=== PATIENT | male | born 1960 | race Caucasian/White ===

== ENCOUNTER 2021-07-13 08:26 | Outpatient (REF) | payer OTHER, SELFPAY ==
--- NOTE | ~2021-07-13 | US_ITS ---
EXAMINATION: US ABDOMEN COMPLETE CLINICAL INFORMATION: HCC screening, positive liver fibrosis (F2-F3), chronic HBV. COMPARISON: Ultrasound abdomen complete 09/18/2019. US abdomen complete with liver elastography 03/08/2019. TECHNIQUE: Real-time imaging of the abdominal viscera. Technically limited study secondary to bowel gas and body habitus. FINDINGS: PANCREAS: Not well visualized due to bowel gas ABDOMINAL AORTA: Not well visualized due to bowel gas INFERIOR VENA CAVA: Not well visualized due to bowel gas LIVER: The liver is slightly enlarged, right lobe measuring 18 cm. The liver contour is normal. Liver echotexture is increased. No focal hepatic lesion. There is no intrahepatic biliary duct dilatation seen. GALLBLADDER: The gallbladder is upper normal in size. This is similar to previous exam. The gallbladder is without evidence of stones, sludge, polyps, wall thickening or pericholecystic fluid. COMMON BILE DUCT: Not seen RIGHT KIDNEY: Normal. No hydronephrosis. No renal calculi or focal parenchymal lesions. The kidney measures 12.6 cm in maximum dimension. LEFT KIDNEY: Normal. No hydronephrosis. No renal calculi or focal parenchymal lesions. The kidney measures 12.5 cm in maximum dimension. SPLEEN: 11.6 The spleen measures 11.6 cm in maximum dimension. FREE FLUID: None. US/US abdomen complete IMPRESSION: Very limited exam. Enlarged echogenic liver probably representing fatty infiltration. No ultrasound evidence of cirrhosis. Upper normal-size gallbladder similar to previous exam. No gallstones. Limited visualization of the pancreas, aorta, IVC and common bile duct.
== END 2021-07-13 08:27 | disposition home or self-care (01) ==
LOC: HO.US 08:26
PROVIDERS: Visit Provider Nurse Practitioner
DX: K74.00 Hepatic fibrosis, unspecified (principal)
CPT/HCPCS: 76700

== ENCOUNTER 2023-03-17 15:04 | Outpatient (REF) | payer OTHER, SELFPAY ==
[2023-03-17 16:41] LABS: Alanine Aminotransferase 34 U/L (0-40); Albumin Level 4.5 g/dL (3.5-5.0); Alkaline Phosphatase 101 U/L (39-117); Aspartate Amino Transferase 28 U/L (5-37); Bilirubin Direct < 0.2 mg/dL (0.0-0.5); Bilirubin Total 0.2 mg/dL (0.0-1.0); Total Protein 8.7 g/dL (6.5-8.0)
[2023-03-18 07:22] LABS: HIV AB/AG Nonreactive (Nonreactive); HIV Num 1 0.17 S/CO (0.00-0.99); ~HepC Num1 0.66 S/CO (0.00-0.79); ~Hepatitis C Antibody Nonreactive (Nonreactive)
== END 2023-03-17 15:05 | disposition home or self-care (01) ==
LOC: HO.HHCL 15:04
PROVIDERS: Visit Provider Emergency Medicine
DX: F11.20 Opioid dependence, uncomplicated (principal)
CPT/HCPCS: 36415; 80076; 86803; 87389

== ENCOUNTER 2023-07-28 13:12 | Outpatient (REF) | payer OTHER, SELFPAY ==
[2023-07-28 16:19] LABS: Hematocrit 43.1 % (42.0-52.0); Hemoglobin 14.8 g/dl (14.0-18.0); Mean Corpuscular HGB Conc 34.3 g/dl (31.0-36.0); Mean Corpuscular Volume 90.4 fL (80.0-98.0); Mean Platelet Volume 12.1 fL (9.4-12.4); Platelet Count 266 X10*3/uL (160-400); Red Blood Count 4.77 X10*6/uL (4.60-5.80); Red Cell Distribution Width 13.2 % (11.0-16.0); White Blood Count 13.5 X10*3/uL (4.8-10.8)
[2023-07-28 16:40] LABS: Estimated Average Glucose 160 mg/dL; Hemoglobin A1c % 7.2 % (<6.0)
[2023-07-28 16:45] LABS: Alanine Aminotransferase 22 U/L (0-40); Albumin Level 4.8 g/dL (3.5-5.0); Alkaline Phosphatase 97 U/L (39-117); Anion Gap 17 (12-20); Aspartate Amino Transferase 22 U/L (5-37); Bilirubin Total 0.3 mg/dL (0.0-1.0); Blood Urea Nitrogen 17 mg/dL (9-16); Calcium 10.5 mg/dL (8.4-10.2); Carbon Dioxide 28 mmol/L (22-29); Chloride 99 mmol/L (96-108); Cholesterol 207 mg/dL (<200); Estimated Glomerular Filt Rate > 60; Glucose Random 140 mg/dL (60-115); HDL Cholesterol 62 mg/dL (>40); LDL Cholesterol Calculated 108 mg/dL (<100); Potassium 3.7 mmol/L (3.3-5.1); Sodium 140 mmol/L (135-145); Total Protein 9.1 g/dL (6.5-8.0); Triglycerides 185 mg/dL (<150)
[2023-07-28 16:52] LABS: TSH reflex Free T4 1.17 uIU/mL (0.32-4.0); Vitamin D 25-OH Total 19.8 ng/mL (>30)
[2023-07-28 17:10] LABS: Folate 14.1 ng/mL (> or = 4.0); Prostate Specific Antigen 0.32 ng/mL (<0.05-4.0); Vitamin B12 512 pg/mL (200-900)
[2023-07-28 17:33] LABS: CT PCR NOT DETECTED (Not Detect.); NG PCR NOT DETECTED (Not Detect.)
[2023-07-29 08:28] LABS: HBS Num1 96.62 mIU/mL (0-7.99); HBc Num1 6.03 S/CO (0.00-0.79); HBsAGNum1 0.28 S/CO (0.00-0.99); HIV AB/AG Nonreactive (Nonreactive); HIV Num 1 0.53 S/CO (0.00-0.99); Hepatitis B Surface Antigen Negative (Negative); ~HepC Num1 1.13 S/CO (0.00-0.79); ~Hepatitis B Surface Antibody REACTIVE (Nonreactive); ~Hepatitis C Antibody Reactive (Nonreactive)
[2023-07-29 08:33] LABS: Syphilis Screen Reactive (Nonreactive)
[2023-07-29 09:50] LABS: HBc Num3 6.19 S/CO; Hepatitis B Core Antibody Reactive (Nonreactive)
[2023-08-01 12:48] LABS: HCV Log PCR <1.18 NOT DETECTED Log IU/mL (NOT DETECTED); HepC Viral Load <15 NOT DETECTED IU/mL (NOT DETECTED)
[2023-08-05 14:43] LABS: RPR Quantitative Reactive 1:1 (Nonreactive); T.Pallidum Particle Agg Test Reactive (Nonreactive)
== END 2023-07-28 13:13 | disposition home or self-care (01) ==
LOC: HO.HHCL 13:12
PROVIDERS: Visit Provider Student in an Organized Health Care Education/Training Program
DX: Z00.00 Encounter for general adult medical examination without abnormal findings (principal); Z12.5 Encounter for screening for malignant neoplasm of prostate
CPT/HCPCS: 0353U; 36415; 80053; 80061; 82306; 82607; 82746; 83036; 84153; 84443; 85027; 86592; 86704; 86706; 86780; 86803; 87340; 87389; 87522

== ENCOUNTER 2023-08-02 15:53 | Outpatient (REF) | payer OTHER, SELFPAY ==
--- NOTE | ~2023-08-02 | XR_ITS ---
EXAMINATION: XR KNEE, RIGHT CLINICAL INFORMATION: Patient states right knee pain, denies injury. COMPARISON: None available. TECHNIQUE: AP and lateral of the right knee. FINDINGS: Trace joint effusion. Tiny posterior patellar osteophytes. Mild narrowing of the lateral compartment. XR/XR knee RT 2V IMPRESSION: Mild degenerative changes.
[2023-08-02 19:27] LABS: Creatinine Urine 70.53 mg/dL; Microalbum/Creatinine Ratio Ur 15.5 ug/mg cr (<30)
== END 2023-08-02 15:54 | disposition home or self-care (01) ==
LOC: HO.HHCX 15:53
PROVIDERS: Visit Provider Student in an Organized Health Care Education/Training Program
DX: M25.561 Pain in right knee (principal); E83.52 Hypercalcemia
CPT/HCPCS: 73560; 82043; 82570

== ENCOUNTER 2023-08-22 06:34 | Day surgery (SDC) | payer OTHER, SELFPAY ==
[2023-08-18 09:39] VITALS: BMI 31.5
--- NOTE | 2023-08-19 10:14 | HO.ANESPROP2 ---
Documented by User: Crystal Romo NP 08/19/23 10:15 HPI - Anesthesia Eval Consult details Narrative: 63yo M for Right Cataract Extraction IOL Insertion No previous cataract Suboxone daily Anesthesia Pre-Procedure Meds Is the patient on any of the following meds?: GLP1/DPP4 and SGLT2 Inhib PMFSH Past Medical History Medical History Hypercalcemia Hepatitis B HLD (hyperlipidemia) Knee pain Hx of syphilis Hepatitis C Bipolar 1 disorder PTSD (post-traumatic stress disorder) Substance abuse in remission Liver fibrosis Aortic valve stenosis Obesity HTN (hypertension) Diabetes Surgical History Surgical History Hx of appendectomy Social History Social History Patient Tobacco Use Status: Former Tobacco user Use of substances other than those prescribed or required for medical reasons: No Are you DNR?: No Advance Directives: No Advance Directives Information Provided: Yes Advance Directives on File: No Recently lost weight without trying: No Eating poorly because of decreased appetite: No Nutrition Risks: No Nutritional Risk Meds Allergies Allergy/AdvReac Type Severity Reaction Status Date / Time No Known Allergies Allergy Verified 08/22/23 07:33 Home Medications ?Medication ?Instructions ?Recorded ?Confirmed ?Last Taken ?Type acetaminophen 325 mg tablet 325 mg PO Q8-10H PRN Pain 08/17/23 08/18/23 08/22/23 05:00 History aspirin 81 mg tablet,delayed 81 mg PO DAILY 08/17/23 08/17/23 08/22/23 05:00 History release atorvastatin 20 mg tablet 20 mg PO DAILY 08/17/23 08/17/23 08/22/23 05:00 History buprenorphine 8 mg-naloxone 2 mg 1 film sublingual BID 08/17/23 08/18/23 08/22/23 05:00 History sublingual film chlorhexidine gluconate 0.12 % 15 ml PO BEDTIME 08/17/23 08/18/23 Unknown History mouthwash cholecalciferol (vitamin D3) 50 50 mcg PO DAILY 08/17/23 08/17/23 08/22/23 05:00 History mcg (2,000 unit) capsule (Vitamin D3) clonazepam 0.5 mg tablet 0.5 mg PO DAILY PRN Anxiety 08/17/23 08/18/23 Unknown History docusate sodium 100 mg capsule 100 mg PO BID PRN Constipation 08/17/23 08/17/23 Unknown History empagliflozin 25 mg tablet 25 mg PO DAILY 08/17/23 08/17/23 08/19/23 History lisinopril 20 1 tab PO DAILY 08/17/23 08/17/23 08/22/23 05:00 History mg-hydrochlorothiazide 25 mg tablet metformin 500 mg tablet,extended 500 mg PO QPM 08/17/23 08/18/23 Unknown History release 24 hr mirtazapine 15 mg tablet 15 mg PO BEDTIME 08/17/23 08/17/23 Unknown History naloxone 4 mg/actuation nasal spray 4 mg intranasal Q2M PRN Opioid 08/17/23 08/17/23 Unknown History Overdose omega-3 300 mg-dha 120 mg-epa 180 1 cap PO BID 08/17/23 08/18/23 08/22/23 05:00 History mg-fish oil 1,000 mg capsule quetiapine 200 mg tablet 200 mg PO BEDTIME 08/17/23 08/17/23 Unknown History sitagliptin phosphate 50 mg tablet 50 mg PO DAILY 08/17/23 08/17/23 08/19/23 History (Januvia) lamotrigine 25 mg tablet 50 mg PO BEDTIME 08/18/23 08/18/23 Unknown History Exam Height,Weight and Vital Signs: Height 5 ft 6 in Weight 88.451 kg Assessment and Plan Assessment Anesthesia Assessment: Chart Reviewed Documented by User: Madhuri Erazo MD 08/22/23 07:45 PMFSH Past Medical History Medical History Hypercalcemia Hepatitis B HLD (hyperlipidemia) Knee pain Hx of syphilis Hepatitis C Bipolar 1 disorder PTSD (post-traumatic stress disorder) Substance abuse in remission Liver fibrosis Aortic valve stenosis Obesity HTN (hypertension) Diabetes Surgical History Surgical History Hx of appendectomy History of Problems with Anesthesia: No Social History Social History Patient Tobacco Use Status: Former Tobacco user Use of substances other than those prescribed or required for medical reasons: No Are you DNR?: No Advance Directives: No Advance Directives Information Provided: Yes Advance Directives on File: No Recently lost weight without trying: No Eating poorly because of decreased appetite: No Nutrition Risks: No Nutritional Risk Meds Allergies Allergy/AdvReac Type Severity Reaction Status Date / Time No Known Allergies Allergy Verified 08/22/23 07:33 Home Medications ?Medication ?Instructions ?Recorded ?Confirmed ?Last Taken ?Type acetaminophen 325 mg tablet 325 mg PO Q8-10H PRN Pain 08/17/23 08/18/23 08/22/23 05:00 History aspirin 81 mg tablet,delayed 81 mg PO DAILY 08/17/23 08/17/23 08/22/23 05:00 History release atorvastatin 20 mg tablet 20 mg PO DAILY 08/17/23 08/17/23 08/22/23 05:00 History buprenorphine 8 mg-naloxone 2 mg 1 film sublingual BID 08/17/23 08/18/23 08/22/23 05:00 History sublingual film chlorhexidine gluconate 0.12 % 15 ml PO BEDTIME 08/17/23 08/18/23 Unknown History mouthwash cholecalciferol (vitamin D3) 50 50 mcg PO DAILY 08/17/23 08/17/23 08/22/23 05:00 History mcg (2,000 unit) capsule (Vitamin D3) clonazepam 0.5 mg tablet 0.5 mg PO DAILY PRN Anxiety 08/17/23 08/18/23 Unknown History docusate sodium 100 mg capsule 100 mg PO BID PRN Constipation 08/17/23 08/17/23 Unknown History empagliflozin 25 mg tablet 25 mg PO DAILY 08/17/23 08/17/23 08/19/23 History lisinopril 20 1 tab PO DAILY 08/17/23 08/17/23 08/22/23 05:00 History mg-hydrochlorothiazide 25 mg tablet metformin 500 mg tablet,extended 500 mg PO QPM 08/17/23 08/18/23 Unknown History release 24 hr mirtazapine 15 mg tablet 15 mg PO BEDTIME 08/17/23 08/17/23 Unknown History naloxone 4 mg/actuation nasal spray 4 mg intranasal Q2M PRN Opioid 08/17/23 08/17/23 Unknown History Overdose omega-3 300 mg-dha 120 mg-epa 180 1 cap PO BID 08/17/23 08/18/23 08/22/23 05:00 History mg-fish oil 1,000 mg capsule quetiapine 200 mg tablet 200 mg PO BEDTIME 08/17/23 08/17/23 Unknown History sitagliptin phosphate 50 mg tablet 50 mg PO DAILY 08/17/23 08/17/23 08/19/23 History (Januvia) lamotrigine 25 mg tablet 50 mg PO BEDTIME 08/18/23 08/18/23 Unknown History Exam Airway Mallampati Class: III (globally poor dentition) TM Dist: >3cm Neck ROM: Full Loose/Missing/Broken Teeth: Yes, Upper and Lower Heart: RRR Lungs: CTA Assessment and Plan Assessment Anesthesia Assessment: Anesthesia Plan Discussed Final Anesthetic Review History of Problems with Anesthesia: No NPO: Yes ASA Class: III Final Preanesthetic Review: Meds/Allgs Chart Reviewed, Consent Obtained/Reviewed and Anes Risks/Benef Reviewed Patient Risk: Intermediate Procedure Risk: Low Anesthetic Plan Anesthetic Plan: MAC: Disposition: Standard PACU
[2023-08-22 07:12] VITALS: BP 155/71; PULSE 76; RESP 15; TEMP 36.7; O2SAT 95
[2023-08-22 07:34] LABS: Glucose, Whole Blood 148 mg/dL (60-115)
--- NOTE | 2023-08-22 08:15 | P.PCNO_ITS ---
Ophthalmology Procedure Procedure Date of Service: 08/22/23 Ophthalmology Viscoelastic: Healon Duet Dual Pack Pro Ophthalmology Lenses: IOL Acrysof MP - [id number] (23) Procedure Notes: PREOPERATIVE DIAGNOSIS: Decreased visual acuity right eye secondary to cataract POSTOPERATIVE DIAGNOSIS: Same PROCEDURE: Right cataract extraction with intraocular lens insertion SURGEON: Ar Kulkarni M.D. ANESTHESIA: Topical/MAC ESTIMATED BLOOD LOSS: None COMPLICATIONS: None After obtaining informed consent, the patient was brought to the operating room suite and placed in the supine position. After adequate sedation per anesthesia, topical drops of Tetracaine were given to the right eye. The eye was then prepped and draped in the usual sterile fashion. The operating room microscope was then positioned over the operative eye and a lid speculum placed. A paracentesis was created. Viscoelastic was then instilled into the anterior chamber. A three plane incision was then created temporally, utilizing a 2.85 mm keratome. Capsulotomy forceps were then utilized to create a circular tear capsulotomy. Hydrodissection and hydrodelineation were carried out until adequate mobilization of the nucleus occurred. Phacoemulsification was then utilized to remove the dense central nucl eus followed by removal of the cortical material utilizing the automated aspiration irrigation unit. Viscoelastic was instilled into the posterior capsular bag followed by placement of a posterior chamber intraocular lens without difficulty. The residual Viscoelastic was then removed utilizing the automated IA machine. The wound was checked and found to be watertight. The patient tolerated the procedure well and the lid speculum was removed. Intracameral injection of Vigamox 0.1 mL followed by a subtenon injection of Kenalog-40 0.2 mL were administered. The patient will be seen in the a.m.
--- NOTE | 2023-08-22 08:15 | MHC.SHP ---
Pre-Procedural Eval Section A - 24 Hr Update-Section A only Date of Service: 08/22/23 The patient is an INPATIENT: No Changes since office visit: No Cold of Flu in the past 2 weeks, No New Medical Problems, No Changes in Medication and No Patient answered all questions The patient has been examined within 24 hours of the surgical procedure. The History & Physical has been completed within 30 days and I have reviewed it.: Yes Section B - Complete if H&P > 30 days Chief Complaint: Age-related nuclear cataract, right eye Allergies: Allergies Allergy/AdvReac Type Severity Reaction Status Date / Time No Known Allergies Allergy Verified 08/22/23 07:33 Plan Diagnosis/Plan: Unchanged I have reviewed the history and physical and performed a pertinent physical examination on my patient. No changes have occurred unless specified. Time Spent With Patient Time: Total time managing care of this patient today ____ minutes.
[2023-08-22] MEDS: Lactated Ringers 500 ML 50 ML IV (08:17)
[2023-08-22 08:54] VITALS: BP 126/73; PULSE 71; RESP 18; TEMP 36.8; O2SAT 96
== END 2023-08-22 08:57 | disposition home or self-care (01) ==
PROVIDERS: PCP Student in an Organized Health Care Education/Training Program; Visit Provider Ophthalmology
PROC: (CPT 66985; principal; 2023-08-22 08:00)
DX: H25.11 Age-related nuclear cataract, right eye (principal); H52.4 Presbyopia; H53.002 Unspecified amblyopia, left eye; H18.413 Arcus senilis, bilateral; H17.89 Other corneal scars and opacities; I10 Essential (primary) hypertension; E11.9 Type 2 diabetes mellitus without complications; E78.00 Pure hypercholesterolemia, unspecified; F31.9 Bipolar disorder, unspecified; Z79.84 Long term (current) use of oral hypoglycemic drugs; Z79.899 Other long term (current) drug therapy
CPT/HCPCS: 66984; 82947; J2250; J3010; J3301; V2630

== ENCOUNTER 2023-10-25 14:00 | Outpatient (RCR) | payer OTHER, SELFPAY | END 2023-12-07 08:43 | disposition home or self-care (01) | LOC: HO.PT 14:00 | PROVIDERS: PCP Student in an Organized Health Care Education/Training Program; Visit Provider Student in an Organized Health Care Education/Training Program | DX: M25.561 Pain in right knee (principal) | CPT/HCPCS: 97110; 97162; 97530 ==

== ENCOUNTER 2024-01-02 08:30 | Outpatient (REF) | payer OTHER, SELFPAY ==
[2024-01-02 11:10] LABS: MANUAL DIFF FLAG NO
[2024-01-02 11:15] LABS: Basophils Percent Auto 0.4 % (0-2); Eosinophils Absolute Auto 0.2 X10*3/uL (0.0-0.4); Eosinophils Percent Auto 1.6 % (0-4); Hematocrit 41.3 % (42.0-52.0); Hemoglobin 14.2 g/dl (14.0-18.0); Imm Gran Abs Auto 0.03 X10*3/uL (0.00-0.03); Imm Gran Pct Auto 0.3 % (0.0-0.4); Lymphocytes Absolute Auto 3.2 X10*3/uL (1.2-4.9); Lymphocytes Percent Auto 32.9 % (20-40); Mean Corpuscular HGB Conc 34.4 g/dl (31.0-36.0); Mean Corpuscular Volume 90.2 fL (80.0-98.0); Mean Platelet Volume 11.8 fL (9.4-12.4); Monocytes Absolute Auto 0.5 X10*3/uL (0.1-1.2); Monocytes Percent Auto 4.7 % (2-11); Neutrophils Absolute Auto 5.8 x10*3/uL (2.0-8.3); Neutrophils Percent Auto 60.1 % (45-73); Platelet Count 269 X10*3/uL (160-400); Red Blood Count 4.58 X10*6/uL (4.60-5.80); Red Cell Distribution Width 13.3 % (11.0-16.0); White Blood Count 9.6 X10*3/uL (4.8-10.8)
[2024-01-02 11:24] LABS: Estimated Average Glucose 148 mg/dL; Hemoglobin A1C 191.8667 umol/L; Hemoglobin A1c % 6.8 % (<6.0); Total Hemoglobin (HGBA1C) 3758.8465 umol/L
[2024-01-02 11:38] LABS: Creatinine Urine 80.42 mg/dL; Microalbum/Creatinine Ratio Ur 14.9 ug/mg cr (<30)
[2024-01-02 12:02] LABS: Folate 13.9 ng/mL (> or = 4.0); Vitamin B12 483 pg/mL (200-900)
[2024-01-02 12:03] LABS: Alanine Aminotransferase 24 U/L (0-40); Albumin Level 4.3 g/dL (3.5-5.0); Alkaline Phosphatase 90 U/L (39-117); Anion Gap 13 (12-20); Aspartate Amino Transferase 24 U/L (5-37); Bilirubin Total 0.3 mg/dL (0.0-1.0); Blood Urea Nitrogen 14 mg/dL (9-16); Calcium 9.4 mg/dL (8.4-10.2); Carbon Dioxide 26 mmol/L (22-29); Chloride 101 mmol/L (96-108); Cholesterol 158 mg/dL (<200); Estimated Glomerular Filt Rate > 60; Glucose Random 126 mg/dL (60-115); HDL Cholesterol 52 mg/dL (>40); LDL Cholesterol Calculated 69 mg/dL (<100); Potassium 3.8 mmol/L (3.3-5.1); Sodium 136 mmol/L (135-145); Total Protein 8.4 g/dL (6.5-8.0); Triglycerides 189 mg/dL (<150); Vitamin D 25-OH Total 26.9 ng/mL (>30)
== END 2024-01-02 08:31 | disposition home or self-care (01) ==
LOC: HO.HHCL 08:30
PROVIDERS: Visit Provider Student in an Organized Health Care Education/Training Program
DX: E83.52 Hypercalcemia (principal); E11.9 Type 2 diabetes mellitus without complications; Z68.32 Body mass index [BMI] 32.0-32.9, adult; E66.09 Other obesity due to excess calories
CPT/HCPCS: 36415; 80053; 80061; 82043; 82306; 82570; 82607; 82746; 83036; 85025

== ENCOUNTER 2024-01-25 09:18 | Outpatient (REF) | payer OTHER, SELFPAY | END 2024-01-25 09:19 | disposition home or self-care (01) | LOC: HO.US 09:18 | PROVIDERS: PCP Student in an Organized Health Care Education/Training Program; Visit Provider Student in an Organized Health Care Education/Training Program | DX: K74.00 Hepatic fibrosis, unspecified (principal) | CPT/HCPCS: 76700; 76981 ==

== ENCOUNTER → 2024-01-25 09:21 | Outpatient (BNV) | payer OTHER, SELFPAY | PROVIDERS: PCP Student in an Organized Health Care Education/Training Program; Visit Provider Radiology Diagnostic Radiology | DX: K74.00 Hepatic fibrosis, unspecified (principal) | CPT/HCPCS: 76700; 76981 ==

== ENCOUNTER 2024-04-20 14:53 | Outpatient (REF) | payer OTHER, SELFPAY ==
--- NOTE | ~2024-04-20 | XR_ITS ---
EXAMINATION: XR KNEE, LEFT CLINICAL INFORMATION: pain COMPARISON: 10/04/2018 . TECHNIQUE: AP standing and lateral view left knee. of the left knee. FINDINGS: No fracture, dislocation, or suspicious bone lesion. Normal bone mineralization. Severe medial compartment joint space narrowing is noted with near qpxh-ce-dcxo appearance. There is compensatory widening of the lateral compartment, and varus angulation of the joint. Mild to moderate patellofemoral degenerative arthritis. There is mild spurring of the tibial spines. There is a large joint effusion. Soft tissues demonstrate vascular calcifications. XR/XR knee LT 2V IMPRESSION: 1. Severe medial compartment joint space loss with near xpwj-oq-jsjl appearance, compensatory widening of the lateral compartment and mild varus angulation of the joint. 2. Tujl-ed-alhhzcdn patellofemoral osteoarthrosis. 3. Prominent suprapatellar joint effusion. 4. Vascular calcifications. Electronically signed by: Braydon Nguyen MD 04/20/2024 03:50 PM JH
--- OUTSIDE RECORDS SUMMARY | 2024-04-20 17:05 | XMS_ITS | Encounter Summary ---
Author Organization [employer] Address [address] [place] [address] Care Team Providers Care Db2 Systems Programmer Name Role Phone Tuyet Aguilar MD Primary Care Pro vider Reason for Visit * Reason Onset Date Comments Results 04/20/2024 Encounter Details Date Type Department Care Team ([facility] st Contact Info) Description 04/20/2024 Telephone [facility] [address] [place] [address] Tuyet Sanchez MD [address] [place] [address] Results Social History Tobacco Use Types Packs/Day Years Used Date Smoking Tobacco: Never Smokeless Tobacco: Never Alcohol Use Standard Drinks/Week Comments Never 0 (1 standard drink = 0.6 oz pur e alcohol) hx of alcohol abuse -stopped Alcohol Answer Date Recorded Frequency of Alcohol Consumption Not on file 01/03/2024 Average Number of Drinks Not on file 024 Frequency of Binge Drinking Not on file 12/22 Score 0 01/03/2024 Depression Answer Date Recorded Patient Health Questionnaire-9 Score 0 04/13/2024 Patient Health Questionnaire-9 Score 0 04/13/2024 Last PHQ-9: Questionnaire Data Not on file 0 04/13/2024 Housing Stability Answer Date Recorded What is your housing situation today? I have anisa zuniga 12/07/[address] you li ve. Do you have problems with any of the following? None of the above 12/07/2022 Food Insecurity Answer Date Recorded Within the past 12 months, y ou worried that your food would run out before you got money to buy more: Never True 12/07/2022 Within the past 12 months,th e food you bought just didn't last and you didn't have enough money to get more: Never True Transportation Answer Date Recorded In the past 12 months, has l ack of transportation kept you from medical appts, meetings, work or from getting things needed for daily living? No 12/07/2022 Utilities Answer Date Recorded In the past 12 months, has t he electric, gas, oil or water company threatened to shut off services in your home? No 12/07/2022 Depression Answer Date Recorded Patient Health Questionnaire-2 Score 0 04/13/2024 Internet Access Answer Date Recorded Internet Access Q1 Yes 01/03/2024 Internet Access Q2 Not on file 01/03/2024 Sex and Gender Information Value Date Recorded Sex Assigned at Male 12/21/2021 10:14 AM EDT Legal Sex Male 10:14 AM EDT Gender Identity Male 12/21/2021 10:14 AM EDT Sexual Orientation Straight 12/21/2021 10 :14 AM EDT documented as of this encounter Miscellaneous Notes * Telephone Encounter - Sheeba Nair RN - 04/20/2024 4:09 PM EST Call placed to patient. Advised him that Dr. Angeles reviewed his knee x-ray and it demonstrated severe OA. Advised patient that a referral will be placed to orthopedics. Informed patient he will either receive a phone call or a letter in the mail with appointment information. Reinforced instructions at [facility] visit - elevation, ice, rest, tylenol/ ibuprofen as needed q. 8 hours, and diclofenac geltwice daily as needed. All questions answered. Patient verbalizes understanding and agreement with plan of care at this time. [place] [id number] ----- Message from Tuyet Ga MD sent at 04/20/2024 4:04 PM EST ----- Please le patient know I reviewed XRAY, he has severe OA I think the best approach is for referral to orthopedics please let patient know I will put referral in for him documented in this encounter Plan of Treatment Upcoming Encounters Date Type Department Care Team (Late st Contact Info) Description 05/18/2024 1:30 PM EDT Office Visit [facility] [address] [place], [place] [phone] Adeline Chew, OD [address] [place] [address] 06/15/2024 9:45 AM EDT Office Visit [facility] [address] [place] [address] Bj Hayes MD [address] [place] [address] documented as of this encounter Visit Diagnoses Not on filedocumented in this encounter Additional Health Concerns Assessment Noted Time PHQ-9 Depression Total Score: 0 04/13/19 25 10:40 AM EST documented as of this encounter Care Teams Db2 Systems Programmer Relationship Specialty Start Date End Date Tuyet Aguilar MD [address] [place] [address] PCP - General Internal Medicine 11/11/22 documented as of this encounter
--- OUTSIDE RECORDS SUMMARY | 2024-04-20 17:05 | XMS_ITS | Encounter Summary ---
Author Organization [employer] Address [address] [place] [address] Care Team Providers Care Television Journalist Name Role Phone Tuyet Aguilar MD Primary Care Pro vider Reason for Visit * Reason Comments Med Refill Encounter Details Date Type Department Care Team ([facility] st Contact Info) Description 01/13/[address] [facility] [address] [place] [address] Tuyet Aguilar MD [address] [place] [address] Pain Social History Tobacco Use Types Packs/Day Years Used Date Smoking Tobacco: Never Smokeless Tobacco: Never Alcohol Use Standard Drinks/Week Comments Never 0 (1 standard drink = 0.6 oz pur e alcohol) hx of alcohol abuse -stopped Alcohol Answer Date Recorded Frequency of Alcohol Consumption Not on file 01/03/2024 Average Number of Drinks Not on file Frequency of Binge Drinking Not on file 12/22 Score 0 01/03/2024 Depression Answer Date Recorded Patient Health Questionnaire-9 Score 0 06/29/2023 Patient Health Questionnaire-9 Score 0 06/29/2023 Last PHQ-9: Questionnaire Data Not on file 0 06/29/2023 Housing Stability Answer Date Recorded What is [...] Date Recorded Patient Health Questionnaire-2 Score 0 06/29/2023 Internet Access Answer Date Recorded Internet Access Q1 Yes 01/03/2024 Internet Access Q2 Not on file 01/03/2024 Sex and Gender Information Value Date Recorded Sex Assigned at Male 12/21/2021 10:14 AM EDT Legal Sex Male 10:14 AM EDT Gender Identity Male 12/21/2021 10:14 AM EDT Sexual Orientation Straight 12/21/2021 10 :14 AM EDT documented as of this encounter Plan of Treatment Upcoming Encounters Date Type Department Care Team (Late st Contact Info) Description 05/18/2024 1:30 PM EDT Office Visit [facility] [address] [place] [address] Jeevan, Adeline, OD [address] [place] [address] 06/15/2024 9:45 AM EDT Office Visit [facility] [address] [place] [address] Bj Hayes MD [address] [place] [address] documented as of this encounter Visit Diagnoses Diagnosis Pain Generalized pain documented in this encounter Additional Health Concerns Assessment Noted Time PHQ-9 Depression Total Score: 0 06/29/19 24 2:13 PM EDT documented as of this encounter Care Teams Television Journalist Relationship Specialty Start Date End Date Tuyet Aguilar MD [address] [place] [address] PCP - General Internal Medicine 11/11/22 documented as of this encounter
--- OUTSIDE RECORDS SUMMARY | 2024-04-20 17:05 | XMS_ITS | Encounter Summary ---
Author Organization [employer] Address [address] [facility] [address] [facility] [address] [place] [address] Care Team Providers Care Paper Grader Name Role Phone Tuyet Aguilar MD Primary Care Pro vider Reason for Visit * Reason Comments Med Refill Encounter Details Date Type Department Care Team ([facility] st Contact Info) Description 01/09/2023 Refill [facility] [address] [place] [address] Tuyet Aguilar MD [address] [place] [address] Pain Social History Tobacco Use Types Packs/Day Years Used Date Smoking Tobacco: Never Smokeless Tobacco: Never Alcohol Use Standard Drinks/Week Comments Never 0 (1 standard drink = 0.6 oz pur e alcohol) Depression Answer Date Recorded Patient Health Questionnaire-9 Score 0 08/11/2022 Housing Stability Answer Date Recorded What is your housing situation today? I have anisajoshua zuniga 12/07/[address] you [...] Date Recorded Patient Health Questionnaire-2 Score 0 08/11/2022 Sex and Gender Information Value Date Recorded Sex Assigned at Male 12/21/2021 10:14 AM EDT Legal Sex Male 10:14 AM EDT Gender Identity Male 12/21/2021 10:14 AM EDT Sexual Orientation Straight 12/21/2021 10 :14 AM EDT documented as of this encounter Plan of Treatment Upcoming Encounters Date Type Department Care Team (Late st Contact Info) Description 05/18/2024 1:30 PM EDT Office Visit [facility] [address] [place] [address] Adeline Chew, OD [address] [place] [address] 06/15/2024 9:45 AM EDT Office Visit [facility] [address] [place] [address] Bj Hayes MD [address] [place] [address] documented as of this encounter Visit Diagnoses Diagnosis Pain Generalized pain documented in this encounter Additional Health Concerns Assessment Noted Time PHQ-9 Depression Total Score: 0 08/12/19 23 2:31 PM EDT documented as of this encounter Care Teams Paper Grader Relationship Specialty Start Date End Date Tuyet Aguilar MD [address] [place] [address] PCP - General Internal Medicine 11/11/22 documented as of this encounter
--- OUTSIDE RECORDS SUMMARY | 2024-04-20 17:05 | XMS_ITS | Encounter Summary ---
Author Organization [employer] Address [address] [facility] [address] [place] [address] Care Team Providers Care Pure Culture Operator Name Role Phone Amanda Pearson JOVITA Primary Care Provider [phone] Ghulam Krueger Primary Care Provider Zulema Nj Primary Care Provider [phone] Tuyet Aguilar MD Primary Care Pro vider Encounter Details Date Type Department Care Team (Late Contact Info) Description 04/19/2022 Orders Only [facility] [address] [place], [place] [phone] Cherelle Gaitan LPN Social History Tobacco Use Types Packs/Day Years Used Date Smoking Tobacco: Never Assessed Sex and Gender Information Value Date Recorded Sex Assigned at Male 12/21/2021 10:14 AM EDT Legal Sex Male 10:14 AM EDT Gender Identity Male 12/21/2021 10:14 AM EDT Sexual Orientation Straight 12/21/2021 10 :14 AM EDT COVID-19 Exposure Response Date Recorded In the last 10 days, have yo u been in contact with someone who was confirmed or suspected to have Coronavirus/COVID-19? No / Unsure 04/16/2022 11:12 AM EST documented as of this encounter Plan of Treatment Upcoming Encounters Date Type Department Care Team (Late Contact Info) Description 05/18/2024 1:30 PM EDT Office Visit [facility] [address] [place], [place] [phone] Adeline Chew, OD [address] [place], [place] [phone] 06/15/2024 9:45 AM EDT Office Visit [facility] [address] [place] [address] Bj Hayes MD [address] [place] [address] documented as of this encounter Visit Diagnoses Not on filedocumented in this encounter Care Teams Pure Culture Operator Relationship Specialty Start Date End Date Amanda Pearson FNP [address] [place] [address] PCP - General Family Medicine 10/15/21 07/22/22 Ghulam Krueger AGNP [address] [place] [address] PCP - General Family Medicine 07/23/22 10/31/22 Zulema Khan ANP [address] [place] [address] PCP - General Family Medicine 11/01/22 11/10/22 Tuyet Aguilar MD [address] [place] [address] PCP - General Internal Medicine 11/11/22 documented as of this encounter
--- OUTSIDE RECORDS SUMMARY | 2024-04-20 17:05 | XMS_ITS | Encounter Summary ---
Author Organization [employer] Address [address] [facility] [address] [place] [address] Care Team Providers Care Level Vial Sealer Name Role Phone Tuyet Aguilar MD Primary Care Pro vider Reason for Visit * Reason Comments Med Refill Encounter Details Date Type Department Care Team ([facility] st Contact Info) Description 01/29/2024 Refill [facility] [address] [place] [address] Tuyet Aguilar MD [address] [place] [address] Social History Tobacco Use Types Packs/Day Years [...] Description 05/18/2024 1:30 PM EDT Office Visit [facility] [address] [place] [address] Jeevan, Adeline, OD [address] [place] [address] 06/15/2024 9:45 AM EDT Office Visit [facility] [address] [place] [address] Bj Hayes MD [address] [place] [address] documented as of this encounter Visit Diagnoses Not on filedocumented in this encounter Additional Health Concerns Assessment Noted Time PHQ-9 Depression Total Score: 0 06/29/19 24 2:13 PM EDT documented as of this encounter Care Teams Level Vial Sealer Relationship Specialty Start Date End Date Tuyet Aguilar MD [address] [place] [address] PCP - General Internal Medicine 11/11/22 documented as of this encounter
--- OUTSIDE RECORDS SUMMARY | 2024-04-20 17:05 | XMS_ITS | Encounter Summary ---
Author Organization [employer] Address 75 [facility] 7t [place] [address] Care Team Providers Care Inspector Bicycle Name Role Phone Tuyet Aguilar MD Primary Care Pro vider Reason for Visit * Reason Comments Med Refill Encounter Details Date Type Department Care Team ([facility] st Contact Info) Description 07/19/2023 Refill [facility] [address] [place] [address] Tuyet Aguilar MD 230 [place] [address] Pain Social History Tobacco Use Types Packs/Day Years Used Date Smoking Tobacco: Never Smokeless Tobacco: Never Alcohol Use Standard Drinks/Week Comments Never 0 (1 standard drink = 0.6 oz pur e alcohol) hx of alcohol abuse -stopped Depression Answer Date Recorded Patient Health Questionnaire-9 [...] Recorded Patient Health Questionnaire-2 Score 0 06/29/2023 Sex and Gender Information Value Date Recorded Sex Assigned at Male 12/21/2021 10:14 AM EDT Legal Sex Male 10:14 AM EDT Gender Identity Male 12/21/2021 10:14 AM EDT Sexual Orientation Straight 12/21/2021 10 :14 AM EDT documented as of this encounter Plan of Treatment Upcoming Encounters Date Type Department Care Team (Late st Contact Info) Description 05/18/2024 1:30 PM EDT Office Visit [facility] OPT[facility]ETRY [address] [place] [address] Jeevan, Adeline, OD 230 [place] [address] 06/15/2024 9:45 AM EDT Office Visit [facility] MED[facility] [address] [place] [address] Bj Hayes MD 230 [place] [address] documented as of this encounter Visit Diagnoses Diagnosis Pain Generalized pain documented in this encounter Additional Health Concerns Assessment Noted Time PHQ-9 Depression Total Score: 0 06/29/19 24 2:13 PM EDT documented as of this encounter Care Teams Inspector Bicycle Relationship Specialty Start Date End Date Tuyet Aguilar MD [address] [place] [address] PCP - General Internal Medicine 11/11/22 documented as of this encounter
--- OUTSIDE RECORDS SUMMARY | 2024-04-20 17:05 | XMS_ITS | Encounter Summary ---
Author Organization [employer] Address 75 [facility] 7t [place] [address] Care Team Providers Care Diesel Mechanic Farm Name Role Phone Ghulam Krueger SIMIN Primary Care Provider Unavail Zulema Woodall Primary Care Provider [phone] Tuyet Aguilar MD Primary Care Pro vider Reason for Visit * Reason Comments Med Refill Encounter Details Date Type Department Care Team (Late st Contact Info) Description 09/24/2022 Refill [facility] MED[facility]INE 230 [place], [place] [phone] Bj Hayes MD 230 [place] [address] Uncomplicated opioid dependence (CMS/HCC) Social History Tobacco Use Types Packs/Day Years Used Date Smoking Tobacco: Never Smokeless Tobacco: Never Alcohol Use Standard Drinks/Week Comments Never 0 (1 standard drink = 0.6 oz pur e alcohol) Depression Answer Date Recorded Patient Health Questionnaire-9 Score 0 08/11/2022 Depression Answer Date Recorded Patient Health Questionnaire-2 [...] Description 05/18/2024 1:30 PM EDT Office Visit [facility] OPTOMETRY [address] [place], [place] [phone] Adeline Chew, OD 230 [place], [place] [phone] 06/15/2024 9:45 AM EDT Office Visit [facility] MEDICINE [address] [place] [address] [phone] Bj Hayes MD [address] [place] [address] [phone] documented as of this encounter Visit Diagnoses Diagnosis Uncomplicated opioid dependence (CMS/HCC) documented in this encounter Additional Health Concerns Assessment Noted Time PHQ-9 Depression Total Score: 0 08/12/19 2:31 PM EDT documented as of this encounter Care Teams Diesel Mechanic Farm Relationship Specialty Start Date End Date Ghulam Krueger AGNP PCP - General Family Medicine 07/23/22 10/31/22 Zuleam Khan ANP [address] [place] [address] [phone] PCP - General Family Medicine 11/01/22 11/10/22 Tuyet Aguilar MD [address] [place] [address] [phone] PCP - General Internal Medicine 11/11/22 documented as of this encounter
--- OUTSIDE RECORDS SUMMARY | 2024-04-20 17:05 | XMS_ITS | Encounter Summary ---
Author Organization [employer] Address 75 [facility] 7t [place] [address] Care Team Providers Care Procurement Representative Name Role Phone Amanda Pearson JOVITA Primary Care Provider [phone] Ghulam Krueger Primary Care Provider Zulema Nj Primary Care Provider [phone] Tuyet Aguilar MD Primary Care Pro vider Encounter Details Date Type Department Care Team (Late st Contact Info) Description 04/02/2022 Orders Only [facility]EDS [address] [place], [place] [phone] Cherelle Gaitan LPN Social History Tobacco Use [...] Description 05/18/2024 1:30 PM EDT Office Visit [facility] OPTOMETRY [address] [place], [place] [phone] Adeline Chew, OD 230 [place], [place] [phone] 06/15/2024 9:45 AM EDT Office Visit [facility] MEDICINE 230 [place], [place] [phone] Bj Hayes MD 230 [place], [place] [phone] documented as of this encounter Visit Diagnoses Not on filedocumented in this encounter Care Teams Procurement Representative Relationship Specialty Start Date End Date Amanda Pearson FNP [address] [place] [address] PCP - General Family Medicine 10/15/21 07/22/22 Ghulam Krueger AGNP [address] [place] [address] PCP - General Family Medicine 07/23/22 10/31/22 Zulema Khan ANP [address] [place] [address] PCP - General Family Medicine 11/01/22 11/10/22 Tuyet Aguilar MD [address] [place] [address] PCP - General Internal Medicine 11/11/22 documented as of this encounter
--- OUTSIDE RECORDS SUMMARY | 2024-04-20 17:05 | XMS_ITS | Encounter Summary ---
Author Organization [employer] Address 75 [facility] 7t [place] [address] Care Team Providers Care Master Of Ceremonies Name Role Phone Tuyet Aguilar MD Primary Care Pro vider Reason for Visit * Reason Comments Med Refill Encounter Details Date Type Department Care Team ([facility] st Contact Info) Description 04/20/2024 Refill [facility] MEDICINE [address] [place], [place] [phone] Rakel Ng MD 230 [place], [place] [phone] Social History Tobacco Use Types Packs/Day Years [...] Description 05/18/2024 1:30 PM EDT Office Visit [facility] OPTOMETRY [address] [place] [address] Jeevan, Adeline, OD 230 [place] [address] 06/15/2024 9:45 AM EDT Office Visit [facility] MEDICINE [address] [place] [address] Bj Hayes MD [address] [place] [address] documented as of this encounter Visit Diagnoses Not on filedocumented in this encounter Additional Health Concerns Assessment Noted Time PHQ-9 Depression Total Score: 0 04/13/19 25 10:40 AM EST documented as of this encounter Care Teams Master Of Ceremonies Relationship Specialty Start Date End Date Tuyet Aguilar MD 230 [place] [address] PCP - General Internal Medicine 11/11/22 documented as of this encounter
--- OUTSIDE RECORDS SUMMARY | 2024-04-20 17:05 | XMS_ITS | Encounter Summary ---
Author Organization [employer] Address 75 [facility] 7t [place] [address] Care Team Providers Care Software Development Analyst Name Role Phone Tuyet Aguilar MD Primary Care Pro vider Reason for Visit * Reason Comments OBAT Encounter Details Date Type Department Care Team ([facility] st Contact Info) Description 04/13/2024 9:30 AM EST Office Visit [facility] MEDIC[facility] [address] [place], [place] [phone] Bj Hayes MD [address] [place], [place] [phone] Opioid dependence in remission (CMS/HCC) (Primary Dx); Uncomplicated opioid dependence (CMS/HCC) Social History Tobacco [...] AM EDT documented as of this encounter Progress Notes * Bj Hayes MD - 04/13/2024 9:30 AM EST Patient ID: Petey Shipman is a 64 y.o. male who is here for Opioid Dependence RV. Current dose of Suboxone is 16/4 mg daily on a 8 weeks schedule. Induction date: 07/07/18. Patient actively enrolled with services at [facility] with Kale Barnes and Dr. Harrell. LFTs last done 08/02/23. VSs 03/16/24. 02/17/24 Utox pos BUP only Petey seen today for follow-up for opioid use disorder. Reports doing very well; reading his Bible studies and in care with therapist and psychiatrist. Feels well on current dose of Suboxone with no cravings, withdrawal symptoms, or adverse effects. No substance use or alcohol. Today 04/13/24 F/U for opioid use disorder Utox BUP VSs 03/16/24 Doing ok. Has been having more pain from arthritis, knees to hips/ Suboxone helps though sometimes needs to take a little extra. Wondering if I could increase his dose. Constipation controlled with 2 colace daily. Reads the bible and bible studies by zoom, alone or at his girlfriend's. Physical Exam Constitutional: Appearance: Normal appearance. Musculoskeletal: Comments: Using a cane. Neurological: Mental Status: He is alert and oriented to person, place, and time. Psychiatric: Mood and Affect: Mood normal. Behavior: Behavior normal. Thought Content: Thought content normal. Assessment/Plan Opioid dependence in remission ([facility]) VSs 03/16/24 Doing ok. Has been having more pain from arthritis, knees to hips. Suboxone BID helps (a.m. and evening) though sometimes needs to take a little extra. Wondering if Icould increase his dose. Constipation controlled with 2 colace daily. Reads the bible and bible studies by zoom, alone or at his girlfriend's. As above. Continues to do well. Reviewed suboxone dose. Will increase to 8-4-8. Hep A IgG @ May visit (can't find result in labs). Hep B immune. F/U 8 weeks Diagnoses and all orders for this visit: Opioid dependence in remission ([facility]) This information has been disclosed to you from records protected by federal confidentiality rules(42 CFR Part 2). The federal rules prohibit you from making any further disclosure of information in this record that identifies a patient as having or having had a substance use disorder either directly, by reference to publicly available information, or through verification of such identificationby another person unless further disclosure is expressly permitted by the written consent of the individual whose information is being disclosed or as otherwise permitted by (see 2.3.1). The federal rules restrict any use of the information to investigate or prosecute with regard to a crime any patient with a substance use disorder, except as provided at 2.12??(5) and 2.65. documented in this encounter Plan of Treatment Upcoming Encounters Date Type Department Care Team (Late st Contact Info) Description 05/18/2024 1:30 PM EDT Office Visit [facility] OPTOMETRY [address] [place] [address] Jeevan, Adeline, OD 230 [place] [address] 06/15/2024 9:45 AM EDT Office Visit [facility] MEDIC[facility] [address] [place] [address] Bj Hayes MD [address] [place] [address] documented as of this encounter Procedures Procedure Name Priority Date/Time Associated Diagnosis Comments POCT PRECIOUS-14 URINE DRUG SCREEN Routine 04/13/2024 10:25 AM EST Opioid dependence in remission (CMS/HCC) documented in this encounter Results * POCT PRECIOUS-14 Urine Drug Screen (04/13/2024 10:25 AM EST) THC Negative Cocaine Screen, Urine Negative Opiate Screen, Urine Negative Methamphetamine Screen Urine Negative Amphetamine Screen, Urine Negative Benzodiazepines Screen, Urine Negative Barbiturate Screen, Urine Negative Methadone Screen, Urine Negative Buprenophine Screen, Urine Positive TCA, Urine Negative MDMA Urine Negative ng/mL Oxycodone Screen, Urine Negative Phencyclidine (PCP), Urine Negative Propoxyphene, Urine Negative Fentanyl, Urine Negative Urine Urine specimen obtained by clean catch procedure / Unknown 04/13/2024 10:25 AM EST us Bj Hayes MD POINT OF CARE TEST ENTER/EDIT ORDERABLES Final Result documented in this encounter Visit Diagnoses Diagnosis Opioid dependence in remission (CMS/HCC)- Primary Opioid type dependence, in remission Uncomplicated opioid dependence (CMS/HCC) documented in this encounter Additional Health Concerns Assessment Noted Time PHQ-9 Depression Total Score: 0 04/13/19 25 10:40 AM EST documented as of this encounter Care Teams Software Development Analyst Relationship Specialty Start Date End Date Tuyet Aguilar MD [address] [place] [address] PCP - General Internal Medicine 11/11/22 documented as of this encounter
--- OUTSIDE RECORDS SUMMARY | 2024-04-20 17:05 | XMS_ITS | Encounter Summary ---
Author Organization [employer] Address 75 [facility] 7t [place] [address] Care Team Providers Care Computer Builder Name Role Phone Tuyet Aguilar MD Primary Care Pro vider Reason for Visit * Reason Comments Med Refill Encounter Details Date Type Department Care Team ([facility] st Contact Info) Description 07/08/[address] [facility] MEDICINE [address] [place] [address] Tuyet Aguilar MD 230 [place] [address] Pain Social History Tobacco Use Types Packs/Day [...] 05/18/2024 1:30 PM EDT Office Visit [facility] OPTOMETRY [address] [place] [address] Jeevan, Adeline, OD 230 [place] [address] 06/15/2024 9:45 AM EDT Office Visit [facility] MEDICINE [address] [place] [address] Bj Hayes MD 230 [place] [address] documented as of this encounter Visit Diagnoses Diagnosis Pain Generalized pain documented in this encounter Additional Health Concerns Assessment Noted Time PHQ-9 Depression Total Score: 0 06/29/19 24 2:13 PM EDT documented as of this encounter Care Teams Computer Builder Relationship Specialty Start Date End Date Tuyet Aguilar MD [address] [place] [address] PCP - General Internal Medicine 11/11/22 documented as of this encounter
--- OUTSIDE RECORDS SUMMARY | 2024-04-20 17:05 | XMS_ITS | Encounter Summary ---
Author Organization [employer] Address 75 [facility] 7t [place] [address] Care Team Providers Care Motor Vehicle Assembler Name Role Phone Tuyet Aguilar MD Primary Care Pro vider Encounter Details Date Type Department Care Team (Latest Contact Info) Description 04/13/2024 Travel Social History Tobacco Use Types Packs/Day Years [...] Description 05/18/2024 1:30 PM EDT Office Visit [facility] OPTOMETRY [address] [place] [address] Jeevan, Adeline, OD 230 [place] [address] 06/15/2024 9:45 AM EDT Office Visit [facility] MEDICINE 230 [place] [address] Bj Hayes MD 230 [place] [address] documented as of this encounter Visit Diagnoses Not on filedocumented in this encounter Additional Health Concerns Assessment Noted Time PHQ-9 Depression Total Score: 0 04/13/19 25 10:40 AM EST documented as of this encounter Care Teams Motor Vehicle Assembler Relationship Specialty Start Date End Date Tuyet Aguilar MD 230 [place] [address] PCP - General Internal Medicine 11/11/22 documented as of this encounter
--- OUTSIDE RECORDS SUMMARY | 2024-04-20 17:05 | XMS_ITS | Encounter Summary ---
Author Organization [employer] Address 75 [facility] 7t [place] [address] Care Team Providers Care Tax Accountant Name Role Phone Tuyet Aguilar MD Primary Care Pro vider Reason for Visit * Reason Comments Med Refill Encounter Details Date Type Department Care Team ([facility] st Contact Info) Description 09/16/2023 Refill [facility] MED[facility] [address] [place] [address] Tuyet Aguilar MD 230 [place] [address] Pain Social History Tobacco Use Types Packs/Day [...] Description 05/18/2024 1:30 PM EDT Office Visit [facility] OPTOMETRY [address] [place] [address] Jeevan, Adeline, OD 230 [place] [address] 06/15/2024 9:45 AM EDT Office Visit [facility] MEDICINE [address] [place] [address] Bj Hayes MD 230 [place] [address] documented as of this encounter Visit Diagnoses Diagnosis Pain Generalized pain documented in this encounter Additional Health Concerns Assessment Noted Time PHQ-9 Depression Total Score: 0 06/29/19 24 2:13 PM EDT documented as of this encounter Care Teams Tax Accountant Relationship Specialty Start Date End Date Tuyet Aguilar MD [address] [place] [address] PCP - General Internal Medicine 11/11/22 documented as of this encounter
--- OUTSIDE RECORDS SUMMARY | 2024-04-20 17:05 | XMS_ITS | Encounter Summary ---
Author Organization [employer] Address 75 [facility] 7t [place] [address] Care Team Providers Care Armature Repairer Name Role Phone Tuyet Aguilar MD Primary Care Pro vider Reason for Visit * Reason Comments Med Refill Encounter Details Date Type Department Care Team ([facility] st Contact Info) Description 12/16/2023 Refill [facility] MEDICINE 230 [place], [place] [phone] Bj Hayes MD 230 [place], [place] [phone] Uncomplicated opioid dependence (CMS/[facility]) Social History Tobacco Use Types Packs/Day Years [...] 05/18/2024 1:30 PM EDT Office Visit [facility] OPTOMETRY [address] [place] [address] Jeevan, Adeline, OD 230 [place] [address] 06/15/2024 9:45 AM EDT Office Visit [facility] MEDICINE [address] [place] [address] Bj Hayes MD [address] [place] [address] documented as of this encounter Visit Diagnoses Diagnosis Uncomplicated opioid dependence (CMS/HCC) documented in this encounter Additional Health Concerns Assessment Noted Time PHQ-9 Depression Total Score: 0 06/29/19 24 2:13 PM EDT documented as of this encounter Care Teams Armature Repairer Relationship Specialty Start Date End Date Tuyet Aguilar MD 230 [place] [address] PCP - General Internal Medicine 11/11/22 documented as of this encounter
--- OUTSIDE RECORDS SUMMARY | 2024-04-20 17:05 | XMS_ITS | Encounter Summary ---
Author Organization [employer] Address 75 [facility] 7t [place] [address] Care Team Providers Care Capacitor Pack Press Operator Name Role Phone Tuyet Aguilar MD Primary Care Pro vider Reason for Visit * Reason Comments Med Refill Encounter Details Date Type Department Care Team ([facility] st Contact Info) Description 03/25/2024 Refill [facility] MED & PEDS [address] [place], [place] [phone] Tuyet Aguilar MD 230 [place] [address] Social History Tobacco Use Types Packs/Day Years [...] Description 05/18/2024 1:30 PM EDT Office Visit [facility] OPTOMETRY [address] [place] [address] Jeevan, Adeline, OD 230 [place] [address] 06/15/2024 9:45 AM EDT Office Visit [facility] MEDICINE 230 [place] [address] Bj Hayes MD 230 [place] [address] documented as of this encounter Visit Diagnoses Not on filedocumented in this encounter Additional Health Concerns Assessment Noted Time PHQ-9 Depression Total Score: 0 06/29/19 24 2:13 PM EDT documented as of this encounter Care Teams Capacitor Pack Press Operator Relationship Specialty Start Date End Date Tuyet Aguilar MD 230 [place] [address] PCP - General Internal Medicine 11/11/22 documented as of this encounter
--- OUTSIDE RECORDS SUMMARY | 2024-04-20 17:05 | XMS_ITS | Encounter Summary ---
Author Organization [employer] Address 75 [facility] 7t [place] [address] Care Team Providers Care Vault Custodian Name Role Phone Tuyet Aguilar MD Primary Care Pro vider Reason for Visit * Reason Onset Date Comments Med Refill 04/10/2024 Encounter Details Date Type Department Care Team (Late st Contact Info) Description 04/10/2024 Refill [facility] MEDICINE [address] [place] [address] Merle Snider, SHE[place] Uncomplicated opioid dependence (CMS/HCC) Social History Tobacco [...] Description 05/18/2024 1:30 PM EDT Office Visit [facility] OPTOMETRY [address] [place] [address] Jeevan, Adeline, OD 230 [place] [address] 06/15/2024 9:45 AM EDT Office Visit [facility] MEDICINE [address] [place] [address] Bj Hayes MD 230 [place] [address] documented as of this encounter Visit Diagnoses Diagnosis Uncomplicated opioid dependence (CMS/HCC) documented in this encounter Additional Health Concerns Assessment Noted Time PHQ-9 Depression Total Score: 0 06/29/19 24 2:13 PM EDT documented as of this encounter Care Teams Vault Custodian Relationship Specialty Start Date End Date Tuyet Aguilar MD 230 [place] [address] PCP - General Internal Medicine 11/11/22 documented as of this encounter
--- OUTSIDE RECORDS SUMMARY | 2024-04-20 17:05 | XMS_ITS | Encounter Summary ---
Author Organization [employer] Address 75 [facility] 7t [place] [address] Care Team Providers Care Environmental Web Crawler Name Role Phone Tuyet Aguilar MD Primary Care Pro vider Reason for Visit * Reason Comments Med Refill Encounter Details Date Type Department Care Team ([facility] st Contact Info) Description 09/20/[address] [facility] MEDICINE [address] [place] [address] Tuyet Aguilar MD 230 [place] [address] Social History Tobacco Use Types Packs/Day Years [...] 05/18/2024 1:30 PM EDT Office Visit [facility] OPTOMETRY [address] [place] [address] Jeevan, Adeline, OD 230 [place] [address] 06/15/2024 9:45 AM EDT Office Visit [facility] MEDICINE [address] [place] [address] Bj Hayes MD [address] [place] [address] documented as of this encounter Visit Diagnoses Not on filedocumented in this encounter Additional Health Concerns Assessment Noted Time PHQ-9 Depression Total Score: 0 06/29/19 24 2:13 PM EDT documented as of this encounter Care Teams Environmental Web Crawler Relationship Specialty Start Date End Date Tuyet Aguilar MD [address] [place] [id number] PCP - General Internal Medicine 11/11/22 documented as of this encounter
--- OUTSIDE RECORDS SUMMARY | 2024-04-20 17:05 | XMS_ITS | Encounter Summary ---
Author Organization [employer] Address 75 [facility] 7t [place] [address] Care Team Providers Care Turret Lathe Machinist Name Role Phone Tuyet Aguilar MD Primary Care Pro vider Reason for Visit * Reason Comments Med Refill Encounter Details Date Type Department Care Team ([facility] st Contact Info) Description 04/06/2024 Refill [facility] MEDICINE 230 [place], [place] [phone] Bj Hayes MD 230 [place], [place] [phone] Uncomplicated opioid dependence (CMS/[facility]) Social History Tobacco Use [...] Description 05/18/2024 1:30 PM EDT Office Visit [facility] OPTOMETRY [address] [place] [address] Adeline Chew, OD 230 [place] [address] 06/15/2024 9:45 AM EDT Office Visit [facility] MEDICINE [address] [place] [address] Bj Hayes MD 230 [place] [address] documented as of this encounter Visit Diagnoses Diagnosis Uncomplicated opioid dependence (CMS/HCC) documented in this encounter Additional Health Concerns Assessment Noted Time PHQ-9 Depression Total Score: 0 06/29/19 24 2:13 PM EDT documented as of this encounter Care Teams Turret Lathe Machinist Relationship Specialty Start Date End Date Tuyet Aguilar MD 230 [place] [address] PCP - General Internal Medicine 11/11/22 documented as of this encounter
--- OUTSIDE RECORDS SUMMARY | 2024-04-20 17:05 | XMS_ITS | Encounter Summary ---
Author Organization [employer] Address [address] [facility] [address] [place] [address] Care Team Providers Care Medical Manager Name Role Phone Tuyte Aguilar MD Primary Care Pro vider Reason for Visit * Reason Comments Knee Pain Encounter Details Date Type Department Care Team ([facility] st Contact Info) Description 04/20/2024 2:40 PM EST Office Visit [facility] [address] [place] [address] Tuyet Sanchez MD [address] [place] [address] Acute pain of left knee (Primary Dx) Social History Tobacco Use Types Packs/Day Years [...] AM EDT documented as of this encounter Last Filed Vital Signs Vital Sign Reading Time Taken Comments Blood Pressure 130/77 04/20/2024 2:21 PM EST Pulse 86 04/20/2024 2:21 PM EST Temperature 36.7 ??C (98.1 ??F) 04/20/2024 2:21 PM ES T Respiratory Rate 19 04/20/2024 2:21 PM EST Oxygen Saturation 93% 04/20/2024 2:21 PM EST Inhaled Oxygen Concentration - - Weight 87.3 kg (192 lb 6.4 oz) 04/20/2024 2:21 P M EST Height - - Body Mass Index 31.05 11/02/2023 2:08 PM EDT documented in this encounter Progress Notes * Tuyet Ga MD - 04/20/2024 2:40 PM EST SUBJECTIVE: Petey Shipman is a 64 y.o. year old male who presents for knee pain . Acute Concerns: Left knee pain for the past 2 days, reports pain came out of nowhere, he denies any trauma or triggering activity, patient reports is 9/10 located in the middle of his left knee does not radiate Social History Social History Narrative Not on file Patient Active Problem List Diagnosis Aortic valve stenosis Benign hypertension Bipolar disorder (CMS/HCC) Chronic type B viral hepatitis (CMS/HCC) Diabetes mellitus type 2, uncomplicated (CMS/HCC) Dysthymia Hepatic fibrosis History of substance abuse (CMS/HCC) Hypertriglyceridemia Obesity Posttraumatic stress disorder Routine adult health maintenance Knee pain History of hepatitis C virus infection History of syphilis Hand dermatitis Skin burn Acute pain of left knee Family History Problem Relation Name Age of Onset Alcohol abuse Mother Alcohol abuse Father Prostate cancer Other Review of Systems Constitutional: Negative. HENT: Negative. Respiratory: Negative. Cardiovascular: Negative. Musculoskeletal: Positive for arthralgias. OBJECTIVE: Vitals: 04/20/24 1421 BP: 130/77 BP Location: Right arm Patient Position: Sitting BP Cuff Size: Adult Pulse: 86 Resp: 19 Temp: 98.1 ??F (36.7 ??C) TempSrc: Temporal SpO2: 93% Weight: 192 lb 6.4 oz (87.3 kg) Physical Exam Constitutional: Appearance: Normal appearance. Cardiovascular: Rate and Rhythm: Normal rate and regular rhythm. Pulmonary: Effort: Pulmonary effort is normal. Breath sounds: Normal breath sounds. Abdominal: General: Abdomen is flat. Palpations: Abdomen is soft. Musculoskeletal: Right knee: Normal. Left knee: Tenderness present. Neurological: Mental Status: He is alert. Follow Up: No follow-ups on file. Current Outpatient Medications on File Prior to Visit Medication Sig Dispense Refill acetaminophen (Tylenol) 325 MG tablet Take 1 tablet (325 mg) by mouth every 8 (eight) hours if needed for mild pain. 30 tablet 2 Alcohol Swabs (Alcohol Prep) 70 % pads USE DIRECTED TO TEST BLOOD SUGAR TWICE DAILY 100 each 11 Aspirin Low Dose 81 MG EC tablet TAKE 1 TABLET BY MOUTH EVERY EVENING 90 tablet 0 atorvastatin (Lipitor) 20 MG tablet TAKE 1 TABLET BY MOUTH AT BEDTIME 90 tablet 1 buprenorphine-naloxone (Suboxone) 4-1 MG per sublingual film Place 1 Film under the tongue Once perday. 28 Film 1 chlorhexidine (Peridex) 0.12 % solution Please use 15 ml solution orally every night before bed. Swish for 30 seconds and spit. 120 mL 0 cholecalciferol (Vitamin D-3) 125 MCG (5000 UT) capsule Take 1 capsule (125 mcg) by mouth Once per day. 90 capsule 1 clonazePAM (KlonoPIN) 0.5 MG tablet TAKE 1 TABLET BY MOUTH ONCE DAILY NEEDED. 22 TABLETS PER MONTH Diclofenac Sodium 1 % gel APPLY 2 GRAMS TOPICALLY TO AFFECTED AREA(S) ONCE DAILY NEEDED FOR KNEEPAIN 100 g 1 diphenhydrAMINE (BENADryl) 25 MG tablet Take 1 tablet (25 mg) by mouth every 4 (four) hours if needed for itching. 30 tablet 0 docusate sodium (Colace) 100 MG capsule TAKE 1 TO 2 CAPSULES BY MOUTH AT BEDTIME NEEDED FOR CONSTIPATION WITH A FULL GLASS OF WATER 180 capsule 0 Emollient (CeraVe Daily Moisturizing) lotion Apply 1 Application topically at noon and 1 Application in the evening. 87 mL 2 empagliflozin (Jardiance) 25 MG TAKE 1 TABLET BY MOUTH EVERY MORNING 90 tablet 1 FREESTYLE LITE test strip TEST BLOOD SUGAR 1-2 TIMES PER DAY DIRECTED 100 strip 11 lamoTRIgine (LaMICtal) 25 MG tablet TAKE 2 TABLETS BY MOUTH EVERY DAY AT BEDTIME lisinopril-hydroCHLOROthiazide 20-25 MG tablet TAKE 1 TABLET BY MOUTH EVERY MORNING 90 tablet 1 meloxicam (Mobic) 7.5 MG tablet Take 7.5 mg by mouth Once per day. metFORMIN XR (Glucophage-XR) 500 MG 24 hr tablet TAKE 1 TABLET BY MOUTH EVERY EVENING WITH FOOD DO NOT BREAK, CRUSH, DISSOLVE OR CHEW 30 tablet 11 mirtazapine (Remeron) 15 MG tablet Take 15 mg by mouth at bedtime. naloxone (Narcan) 4 mg/0.1 mL nasal spray FOR SUSPECTED OPIOID OVERDOSE. SPRAY 0.1mL IN ONE NOSTRIL. REPEAT IN ALTERNATE NOSTRIL 2-3 MINUTES IF NEEDED. SEEK MEDICAL ATTENTION IMMEDIATELY EVEN IF PATIENT RESPONDS. omega-3 (Fish Oil) 1000 MG capsule TAKE 1 CAPSULE BY MOUTH TWICE DAILY IN THE MORNING AND IN THE EVENING 180 capsule 0 omega-3 acid ethyl esters (Lovaza) 1 g capsule Take by mouth. permethrin (Elimite) 5 % cream Apply topically from neck down to feet, leave on overnight and wash off in the morning; repeat in one week prn 120 g 1 QUEtiapine (SEROquel) 200 MG tablet Take 200 mg by mouth at bedtime. silver sulfADIAZINE (Silvadene) 1 % cream Apply to affected area twice a day for 10 days 25 g 0 SITagliptin (Januvia) 100 MG tablet Take 1 tablet (100 mg) by mouth Once per day. 90 tablet 1 triamcinolone (Kenalog) 0.1 % cream APPLY TOPICALLY TO THE AFFECTED AREA(S) TWICE DAILY IN THE MORNING AND AT BEDTIME NEEDED FOR PAIN OR SWELLING 30 g 1 TRUEplus Lancets 33G [facility] TEST BLOOD SUGAR ONE OR TWO TIMES DAILY 100 each 11 [DISCONTINUED] triamcinolone (Kenalog) 0.1 % cream APPLY TO THE AFFECTED AREA(S) TWICE DAILY IN THEMORNING AND AT BEDTIME NEEDED FOR PAIN AND FOR SWELLING 30 g 1 No current facility-administered medications on file prior to visit. Problem List Items Addressed This Visit Acute pain of left knee - Primary I advised to elevate the knee apply ice and rest I will prescribe for patient acetaminophen 1 g every 8 hours and ibuprofen 600 mg every 8 hours I explained to patient he may alternate these 2 medications I also prescribed patient diclofenac gel to apply twice daily only if needed X-ray ordered for patient he will be contacted with results Relevant Medications Diclofenac Sodium 1 % gel acetaminophen (Tylenol Extra Strength) 500 MG tablet ibuprofen 600 MG tablet Other Relevant Orders XR Knee 1-2 Views Left documented in this encounter Miscellaneous Notes * Assessment & Plan Note - Tuyet Ga MD - 04/20/2024 3:46 PM EST Associated Problem(s): Acute pain of left knee I advised to elevate the knee apply ice and rest I will prescribe for patient acetaminophen 1 g every 8 hours and ibuprofen 600 mg every 8 hours I explained to patient he may alternate these 2 medications I also prescribed patient diclofenac gel to apply twice daily only if needed X-ray ordered for patient he will be contacted with results documented in this encounter Plan of Treatment Upcoming Encounters Date Type Department Care Team (Late st Contact Info) Description 05/18/2024 1:30 PM EDT Office Visit [facility] [address] [place] [address] Adeline Chew, OD [address] [place], [place] [phone] 06/15/2024 9:45 AM EDT Office Visit [facility] [address] [place] [address] Bj Hayes MD [address] [place] [address] documented as of this encounter Procedures Procedure Name Priority Date/Time Associated Diagnosis Comments XR KNEE 1-2 VIEWS LEFT Routine 04/20/2024 2:54 PM EST Acute pain of left knee documented in this encounter Results * XR Knee 1-2 Views Left (04/20/2024 2:54 PM EST) Anatomical Region Laterality Modality Lower Extremities, Knee Left Radiogra phic Imaging 04/20/2024 2:54 PM EST Narrative 04/20/2024 3:53 PM EST ?[facility] ?[address] ?[place] [address] ?XRay Report ? Signed ? Patient: Petey Shipman ?MR#: [id number] ? : 1960 ?Acct:[id number] ? Age/Sex: 64 / M ?ADM Date: 04/20/24 ? Loc: HO.HHCX ? Attending Dr: Tuyet Ga MD ? Ordering Physician: Tuyet Sanchez MD ?? Date of Service: 04/20/24 ?? Procedure(s): XR knee LT 2V ?? Accession Number(s): [id number] ? cc: Tuyet Sanchez MD ? EXAMINATION: ?? XR KNEE, LEFT ? CLINICAL INFORMATION: ?? pain ? COMPARISON: ?? 10/04/2018 ??. ? TECHNIQUE: ?? AP standing and lateral view left knee. of the left knee. ? FINDINGS: ?? No fracture, dislocation, or suspicious bone lesion. Normal bone ?? mineralization. ? Severe medial compartment joint space narrowing is noted with near ?? jrnz-iu-jiui appearance. There is compensatory widening of the lateral ?? compartment, and varus angulation of the joint. ?? Mild to moderate patellofemoral degenerative arthritis. ?? There is mild spurring of the tibial spines. ? There is a large joint effusion. ? Soft tissues demonstrate vascular calcifications. ? XR/XR knee LT 2V ?? IMPRESSION: ?? 1. Severe medial compartment joint space loss with near smdt-ec-nszd ?? appearance, compensatory widening of the lateral compartment and mild ?? varus angulation of the joint. ?? 2. Skvs-dq-hiziwcgh patellofemoral osteoarthrosis. ?? 3. Prominent suprapatellar joint effusion. ?? 4. Vascular calcifications. ? Electronically signed by: ??Braydon Nguyen MD ??04/20/2024 03:50 PM EST RP ? Dictated By: ?Braydon Nguyen MD ? Signed By: ?<Electronically signed by Braydon Nguyen MD in OV> ?04/20/24 1550 ? DD/ 1454 ? TD/TT: 04/20/24 1500 ? Furnace Fitter: ? Procedure Note Lyndsay, Image - 04/20/[address] [address] XRay Report Signed Patient: Leticia Shipman#: [id number] : 1960cct:[id number] Age/Sex: 64 / MADM Date: 04/20/24 Loc: HO.HHCX Attending Dr: Tuyet Ga MD Ordering Physician: Tuyet Sanchez MD Date of Service: 04/20/24 Procedure(s): XR knee LT 2V Accession Number(s): [id number] cc: Tuyet Sanchez MD EXAMINATION: XR KNEE, LEFT CLINICAL INFORMATION: pain COMPARISON: 10/04/2018 . TECHNIQUE: AP standing and lateral view left knee. of the left knee. FINDINGS: No fracture, dislocation, or suspicious bone lesion. Normal bone mineralization. Severe medial compartment joint space narrowing is noted with near daaa-go-nrly appearance. There is compensatory widening of the lateral compartment, and varus angulation of the joint. Mild to moderate patellofemoral degenerative arthritis. There is mild spurring of the tibial spines. There is a large joint effusion. Soft tissues demonstrate vascular calcifications. XR/XR knee LT 2V IMPRESSION: 1. Severe medial compartment joint space loss with near kewz-dp-xczx appearance, compensatory widening of the lateral compartment and mild varus angulation of the joint. 2. Vqna-kl-kasimebp patellofemoral osteoarthrosis. 3. Prominent suprapatellar joint effusion. 4. Vascular calcifications. Electronically signed by: Braydon Nguyen MD 04/20/2024 03:50 PM EST Dictated By: Braydon Nguyen MD Signed By: <Electronically signed by Braydon Nguyen MD in OV> 04/20/24 1550 DD/ 1454 TD/TT: 04/20/24 1500 Furnace Fitter: Tuyet Ga MD IMG XR PROCEDURES Fin al Result documented in this encounter Visit Diagnoses Diagnosis Acute pain of left knee- Primary documented in this encounter Additional Health Concerns Assessment Noted Time PHQ-9 Depression Total Score: 0 04/13/19 25 10:40 AM EST documented as of this encounter Care Teams Medical Manager Relationship Specialty Start Date End Date Tuyet Aguilar MD [address] [place] [id number] PCP - General Internal Medicine 11/11/22 documented as of this encounter
--- OUTSIDE RECORDS SUMMARY | 2024-04-20 17:05 | XMS_ITS | Encounter Summary ---
Author Organization [employer] Address [address] [facility] [address] [place] [address] Care Team Providers Care Wireless Architect Name Role Phone Tuyet Aguilar MD Primary Care Pro vider Reason for Referral * Consultation (Routine) - Pending Review Specialty Diagnoses / Procedures Referred By Jazzy terrazas Referred To Contact Orthopaedic Surgery Diagnoses Primary osteoarthritis of left knee Tuyet Sanchez MD [address] [place] [address] Phone: tel: fax: Referral ID Status Reason Start Date Expiration Date Visits Requested Visits Authorized [id number] Pending Review Specialty Services Required 04/20/2024 04/20/2025 1 1 Encounter Details Date Type Department Care Team (Late st Contact Info) Description 04/20/2024 Orders Only [facility] [address] [place] [phone] Tuyet Sanchez MD [address] [place] [phone] Primary osteoarthritis of left knee (Primary Dx) Social History [...] Description 05/18/2024 1:30 PM EDT Office Visit [facility] [address] [place] [address] Adeline Chew, OD [address] [place] [address] 06/15/2024 9:45 AM EDT Office Visit [facility] [address] [place] [address] Bj Hayes MD [address] [place] [address] Scheduled Referrals Name Type Priority Associated Diagnoses Orde r Schedule Referral to Orthopaedic Surgery Outpatient Referral Routine Primary osteoarthritis of left knee Expected: 04/20/2024 (Approximate), Expires: 04/20/2025 documented as of this encounter Visit Diagnoses Diagnosis Primary osteoarthritis of left knee- Primary documented in this encounter Additional Health Concerns Assessment Noted Time PHQ-9 Depression Total Score: 0 04/13/19 25 10:40 AM EST documented as of this encounter Care Teams Wireless Architect Relationship Specialty Start Date End Date Tuyet Aguilar MD [address] [place] [address] PCP - General Internal Medicine 11/11/22 documented as of this encounter
--- OUTSIDE RECORDS SUMMARY | 2024-04-20 17:05 | XMS_ITS | Encounter Summary ---
Author Organization [employer] Address [address] [facility] [address] [place] [address] Care Team Providers Care Entertainment Production Professional Name Role Phone Tuyet Aguilar MD Primary Care Pro vider Reason for Visit * Reason Comments Med Refill Encounter Details Date Type Department Care Team ([facility] st Contact Info) Description 12/01/2022 Refill [facility] [address] [place] [address] Ghulam Krueger AGNP Pain Social History Tobacco Use Types Packs/Day Years Used Date Smoking Tobacco: Never Smokeless Tobacco: Never Alcohol Use Standard Drinks/Week Comments Never 0 (1 standard drink = 0.6 oz pur e alcohol) Depression Answer Date Recorded Patient Health Questionnaire-9 Score 0 08/11/2022 Housing Stability Answer Date Recorded What is your housing situation today? I have anisa zuniga 11/29/[address] you li ve. Do you have problems with any of the following? None of the above 11/29/2022 Food Insecurity Answer Date Recorded Within the past 12 months, y ou worried that your food would run out before you got money to buy more: Never True 11/29/2022 Within the past 12 months,th e food you bought just didn't last and you didn't have enough money to get more: Never True 10/2022 Transportation Answer Date Recorded In the past 12 months, has l ack of transportation kept you from medical appts, meetings, work or from getting things needed for daily living? No 11/29/2022 Utilities Answer Date Recorded In the past 12 months, has t he electric, gas, oil or water company threatened to shut off services in your home? No 11/29/2022 Depression Answer Date Recorded Patient Health Questionnaire-2 [...] Description 05/18/2024 1:30 PM EDT Office Visit [facility] [address] [place], [place] [phone] Adeline Chew, OD [address] [place] [address] 06/15/2024 9:45 AM EDT Office Visit [facility] [address] [place] [address] Bj Hayes MD [address] [place], [place] [phone] documented as of this encounter Visit Diagnoses Diagnosis Pain Generalized pain documented in this encounter Additional Health Concerns Assessment Noted Time PHQ-9 Depression Total Score: 0 08/12/19 23 2:31 PM EDT documented as of this encounter Care Teams Entertainment Production Professional Relationship Specialty Start Date End Date Tuyet Aguilar MD [address] [place], [place] [phone] PCP - General Internal Medicine 11/11/22 documented as of this encounter
--- OUTSIDE RECORDS SUMMARY | 2024-04-20 17:05 | XMS_ITS | Clinical Summary ---
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 fibrosis assessment is performed using Edyta ElastPQ point quantification shear wave elastography (pSWE) with a C5-2 MHz transducer. Multiple elastography samples are obtained. Exam submitted for review 03/16/2024 8:48 AM AIR TUBE RELEASER. FINDINGS: PANCREAS: The visualized pancreatic head and body are normal in appearance. The remainder of the pancreas is obscured from visualization by the overlying bowel gas. ABDOMINAL AORTA: No aortic aneurysm is seen. Mid aorta is obscured by gas. INFERIOR VENA CAVA: Visualized portions are normal. LIVER: Liver is normal in size, with diffusely increased hepatic echogenicity. Hepatic contour appears smooth. No suspicious hepatic lesion. There are foci of focal fatty sparing. There is no biliary dilatation intrahepatically. The right lobe measures 15.8 cm in length. The left lobe measures 10.2 cm in length. Portal flow is hepatopedal. Shear wave liver elastography median stiffness is 1.43 m/s (reference: normal median stiffness is 1.3 m/s or less). (Previous stiffness was measured at 1.57 m/s, with a quality data set). IQR/median stiffness to assess sampling precision is 0.23 (reference: good quality data set is IQR/median stiffness of 0.15 or less). GALLBLADDER: The gallbladder is physiologically distended without evidence of stones, sludge, polyps, wall thickening or pericholecystic fluid. COMMON BILE DUCT: Normal in caliber measuring 0.5 cm in diameter. RIGHT KIDNEY: No hydronephrosis. No renal calculi or focal parenchymal lesions. The kidney measures 11.8 cm in maximum dimension. LEFT KIDNEY: No hydronephrosis. No renal calculi or focal parenchymal lesions. The kidney measures 13.3 cm in maximum dimension. SPLEEN: Unremarkable. The spleen measures 9.6 cm in maximum dimension. FREE FLUID: None seen. US/US abdomen comp w elastography IMPRESSION: 1. Diffusely increased hepatic echogenicity, with foci of focal fatty sparing, likely representing fatty infiltration. Cannot exclude underlying hepatocellular disease. No suspicious lesions seen. 2. Liver elastography: Although measurements appear to rule out compensated advanced chronic liver disease, there is statistical variability of the sampling which decreases accuracy. Liver stiffness measurement is without significant change from prior exam (change under 10%). 3. Normal gallbladder, bile ducts, kidneys, and spleen.. REFERENCE: Society of Radiologists in Ultrasound Liver Stiffness Thresholds (2020): LIVER STIFFNESS THRESHOLDS: *Liver Stiffness equal or less than 1.3 m/s: High probability of being normal. *Liver Stiffness less than 1.7 m/s: In the absence of other known clinical signs, rules out compensated advanced chronic liver disease. *Liver Stiffness 1.7-2.1 m/s: Suggestive of compensated advanced chronic liver disease but need further test for confirmation. *Liver Stiffness over 2.1 m/s: Rules in compensated advanced chronic liver disease. *Liver Stiffness over 2.4 m/s: Suggestive of clinically significant portal hypertension. QUALITY OF DATA SET: *IQR/Median value equal or less than 0.15 implies a quality data set. *IQR/Median value over 0.15 implies a poor quality data set. SIGNIFICANT CHANGE FROM PRIOR EXAM: Significant change if liver stiffness measurement is 10% or greater from prior exam. OTHER CONSIDERATIONS: The stage of liver fibrosis may be overestimated in the setting of acute hepatitis, liver inflammation, elevated liver function tests, hepatic vascular congestion, obstructive cholestasis, non-fasting state, and infiltrative diseases such as amyloidosis and lymphoma. In some patients with NAFLD, the liver stiffness thresholds for compensated advanced chronic liver disease may be lower. In causes other than viral hepatitis and NAFLD, liver stiffness thresholds are not well established. Electronically signed by: Braydon Nguyen MD 03/16/2024 09:48 AM [facility] Dictated By: Braydon Nguyen MD Signed By: <Electronically signed by Braydon Nguyen MD in OV> 03/16/24 0948 DD/ 0945 TD/TT: 01/25/24 1000 Tilt Wall Supervisor: us Tuyet Mckinney MD IMG US PROCEDURES Final Result * Albumin, Random Urine W/Creatinine (01/02/2024 8:35 AM EST) Creatinine, Urine 80.42 mg/dL [facility] Microalbumin Urine 12.0 mg/L H [facility] Microalbum Creatinine Ratio Ur 14.9 <30 ug/mg cr [facility] Comment:Albumin/Creatinine R atio Reference Ranges: Normal: < 30 ug/mg creatinine Microalbuminuria: 30 - 300 ug/mg creatinineClinical Albuminuria: > 300 ug/mg creatinine Urine (Urine, Random) 01/02/2024 8:35 AM EST 01/02/2024 11:02 AM EST Tuyet Mckinney MD LAB URINE ORDERAB LES Final Result Performing Organization Address City/[facility]/ZIP Co de Phone Number [facility] [address] [place] [phone] * (ABNORMAL) Hemoglobin A1c (01/02/2024 8:35 AM EST) Hemoglobin A1c 6.8(H) <6.0 % [facility] Comment:Hemoglobin A1C Refer ence Range Adults: 4.8 - 6.0 % Non diabetic: < 6.0 % Goal: < 7.0 %Additional Action Suggested: > 8.0 %Note: Hemoglobin A1c results are invalid for patients with abnormal amounts of HbF. Blood transfusions may impact the HbA1c concentration in the patient sample. Estimated Average Glucose 148 mg/dL [facility] Comment:eAG = Estimated ave rage glucose which is %A1C expressed asaverage glucose, using the formula of the H4G-OrrocmoNnzgcfi Glucose study (ADAG), Diabetes Care, Vol.31,#8,Sep. 2007 Blood Venous blood specimen / Unknown 01/02/2024 8:35 AM EST 01/02/2024 11:06 AM EST Tuyet Mckinney MD LAB BLOOD ORDERAB LES Final Result [facility] [address] [place] [phone] [phone] * (ABNORMAL) Lipid Panel, Standard (01/02/2024 8:35 AM EST) Triglycerides 189(H) <150 mg/dL [facility] Comment:Desirable Triglyceri de: less than 150 mg/dLBorderline High Triglyceride 150-199 mg/dLHigh Triglyceride: 200-499 mg/dLVery High Triglyceride: greater than or equal to 5OO mg/dL Cholesterol 158 <200 mg/dL [facility] Comment:Desirable Cholestero l: less than 200 mg/dLBorderline High Cholesterol: 200-239 mg/dLHigh Cholesterol: greater than 239 mg/dL LDL Cholesterol Calculated 69 <100 mg/dL [facility] Comment:Desirable LDL: less than 100 mg/dLNear Optimal/Above Optimal LDL: 110- 129 mg/dLBorderline High LDL: 130-159 mg/dLHigh LDL: 160-189 mg/dLVery High LDL: greater than or equal to 190 mg/dL HDL Cholesterol 52 >40 mg/dL [facility] Comment:Desirable HDL: great er than 40 mg/dL Note: This HDL assay may give artificially low results in patients with liver disease. Blood Venous blood specimen / Unknown 01/02/2024 8:35 AM EST 01/02/2024 11:06 AM EST us Tuyet Mckinney MD LAB BLOOD ORDERAB LES Final Result [facility] [address] [place] [phone] [phone] * HIV-1/2 Antigen and Antibodies, Fourth Generation, with Reflexes (07/28/2023 1:14 PM EDT) HIV AB/AG Nonreactive Nonreactive [facility] Comment:HIV-1 p24 Ag and/or HIV-1/HIV-2 Ab not detected.A test result that is nonreactive does not exclude thepossibility of exposure to or infection with HIV-1 and/orHIV-2. Nonreactive results in this assay for individualswith prior exposure to HIV-1 and/or HIV-2 may be due toantigen and antibody levels that are below the limit ofdetection of this assay.The Surphace Alinity HIV Ag/Ab Combo assay result andsupplemental assay results should be interpreted inconjunction with the patient's clinical presentation,history and other laboratory results. If the results areinconsistent with clinical evidence, additional testing issuggested to confirm the result. Blood Venous blood specimen / Unknown 07/28/2023 1:14 PM EDT 07/28/2023 4:04 PM EDT Tuyet Mckinney MD LAB BLOOD ORDERAB LES Final Result [facility] [address] [place] [phone] [phone] from Last 3 Months or Most Recently Relevant to Health Maintenance Insurance [address] [place], [place] [phone] [facility] [address] [place] [id number] [address] [facility] [address] [place] [address] [address] [place] [address] Care Teams Ekg Technician Relationship Specialty Start Date End Date Tuyet Aguilar MD [address] [place] [phone] PCP - General Internal Medicine 11/11/22
--- OUTSIDE RECORDS SUMMARY | 2024-04-20 17:05 | XMS_ITS | Encounter Summary ---
Author Organization [employer] Address [address] [facility] 7t [place] [address] Care Team Providers Care Director Community Health Nursing Name Role Phone Tuyet Aguilar MD Primary Care Pro vider Reason for Visit * Reason Onset Date Comments Med Refill 04/10/2024 Encounter Details Date Type Department Care Team (Late st Contact Info) Description 04/10/2024 Refill [facility] MEDICINE [address] [place] [address] Merle Snider, RN Social History Tobacco Use Types Packs/Day Years [...] Description 05/18/2024 1:30 PM EDT Office Visit [facility] OPTOMETRY [address] [place] [address] Jeevan, Adeline, OD [address] [place] [address] 06/15/2024 9:45 AM EDT Office Visit [facility] MEDICINE [address] [place] [address] Bj Hayes MD [address] [place] [address] documented as of this encounter Visit Diagnoses Not on filedocumented in this encounter Additional Health Concerns Assessment Noted Time PHQ-9 Depression Total Score: 0 06/29/19 24 2:13 PM EDT documented as of this encounter Care Teams Director Community Health Nursing Relationship Specialty Start Date End Date Tuyet Aguilar MD [address] [place] [address] PCP - General Internal Medicine 11/11/22 documented as of this encounter
--- OUTSIDE RECORDS SUMMARY | 2024-04-20 17:05 | XMS_ITS | Encounter Summary ---
Author Organization [employer] Address [address] [facility] 7t [place] [address] Care Team Providers Care Harp Regulator Name Role Phone Tuyet Aguilar MD Primary Care Pro vider Reason for Visit * Reason Comments Med Refill Encounter Details Date Type Department Care Team (Late st Contact Info) Description 11/19/2022 Refill [facility] MEDICINE [address] [place] [address] Bj Hayes MD [address] [place], [place] [phone] Uncomplicated opioid dependence (CMS/[facility]) Social History Tobacco Use Types [...] Description 05/18/2024 1:30 PM EDT Office Visit [facility] OPTOMETRY [address] [place], [place] [phone] Jeevan, Adeline, OD [address] [place] [address] 06/15/2024 9:45 AM EDT Office Visit [facility] MEDICINE [address] [place] [address] Bj Hayes MD [address] [place], [place] [phone] documented as of this encounter Visit Diagnoses Diagnosis Uncomplicated opioid dependence (CMS/HCC) documented in this encounter Additional Health Concerns Assessment Noted Time PHQ-9 Depression Total Score: 0 08/12/19 2:31 PM EDT documented as of this encounter Care Teams Harp Regulator Relationship Specialty Start Date End Date Tuyet Aguilar MD [address] [place], [place] [phone] PCP - General Internal Medicine 11/11/22 documented as of this encounter
--- OUTSIDE RECORDS SUMMARY | 2024-04-20 17:05 | XMS_ITS | Encounter Summary ---
Author Organization [employer] Address 75 [facility] 7t [place] [address] Care Team Providers Care Elect Equip Maint Eng Name Role Phone Tuyet Aguilar MD Primary Care Pro vider Reason for Visit * Reason Comments Med Refill Encounter Details Date Type Department Care Team ([facility] st Contact Info) Description 01/02/2024 Refill [facility] MEDICINE [address] [place] [address] Tuyet Aguilar MD [address] [place] [address] Essential hypertension, benign Social History Tobacco Use Types Packs/Day Years [...] Description 05/18/2024 1:30 PM EDT Office Visit [facility] OPTOMETRY [address] [place] [address] Jeevan, Adeline, OD 230 [place] [address] 06/15/2024 9:45 AM EDT Office Visit [facility] MEDICINE [address] [place] [address] Bj Hayes MD [address] [place] [address] documented as of this encounter Visit Diagnoses Diagnosis Essential hypertension, benign documented in this encounter Additional Health Concerns Assessment Noted Time PHQ-9 Depression Total Score: 0 06/29/19 24 2:13 PM EDT documented as of this encounter Care Teams Elect Equip Maint Eng Relationship Specialty Start Date End Date Tuyet Aguilar MD [address] [place] [address] PCP - General Internal Medicine 11/11/22 documented as of this encounter
--- OUTSIDE RECORDS SUMMARY | 2024-04-20 17:05 | XMS_ITS | Encounter Summary ---
Author Organization [employer] Address 75 [facility] 7t [place] [address] Care Team Providers Care Lead Trainer Name Role Phone Tuyet Aguilar MD Primary Care Pro vider Reason for Visit * Reason Comments Med Refill Encounter Details Date Type Department Care Team ([facility] st Contact Info) Description 04/04/[address] [facility] [address] [place], [place] [phone] Cherelle Nieves DO [address] [place], [place] [phone] Social History Tobacco Use Types Packs/Day Years [...] Office Visit [facility] OPTOMETRY [address] [place] [address] Jeevan, Adeline, OD [address] [place] [address] 06/15/2024 9:45 AM EDT Office Visit [facility] MEDICINE [address] [place] [address] Bj Hayes MD [address] [place] [address] documented as of this encounter Visit Diagnoses Not on filedocumented in this encounter Additional Health Concerns Assessment Noted Time PHQ-9 Depression Total Score: 0 06/29/19 24 2:13 PM EDT documented as of this encounter Care Teams Lead Trainer Relationship Specialty Start Date End Date Tuyet Aguilar MD [address] [place] [address] PCP - General Internal Medicine 11/11/22 documented as of this encounter
--- OUTSIDE RECORDS SUMMARY | 2024-04-20 17:05 | XMS_ITS | Encounter Summary ---
Author Organization [employer] Address [address] [facility] 7t [place] [address] Care Team Providers Care Stapler Coil Unit Name Role Phone Tuyet Aguilar MD Primary Care Pro vider Reason for Visit * Reason Comments Med Refill Encounter Details Date Type Department Care Team ([facility] st Contact Info) Description 07/22/2023 Refill [facility] MEDICINE [address] [place] [address] Tuyet Aguilar MD [address] [place] [address] Pain Social History Tobacco Use Types Packs/Day [...] Description 05/18/2024 1:30 PM EDT Office Visit [facility] OPTOMETRY [address] [place] [address] Jeevan, Adeline, OD [address] [place] [address] 06/15/2024 9:45 AM EDT Office Visit [facility] MEDICINE [address] [place] [address] Bj Hayes MD [address] [place] [address] documented as of this encounter Visit Diagnoses Diagnosis Pain Generalized pain documented in this encounter Additional Health Concerns Assessment Noted Time PHQ-9 Depression Total Score: 0 06/29/19 24 2:13 PM EDT documented as of this encounter Care Teams Stapler Coil Unit Relationship Specialty Start Date End Date Tuyet Aguilar MD [address] [place] [phone] PCP - General Internal Medicine 11/11/22 documented as of this encounter
--- OUTSIDE RECORDS SUMMARY | 2024-04-20 17:05 | XMS_ITS | Encounter Summary ---
Author Organization [employer] Address 75 [facility] 7t [place] [address] Care Team Providers Care Body Trimmer Name Role Phone Tuyet Aguilar MD Primary Care Pro vider Reason for Visit * Reason Comments Med Refill Encounter Details Date Type Department Care Team ([facility] st Contact Info) Description 03/09/2023 Refill [facility] MEDICINE [address] [place] [address] Tuyet Aguilar MD [address] [place] [address] Pain Social History Tobacco Use Types Packs/Day [...] Description 05/18/2024 1:30 PM EDT Office Visit [facility] OPTOMETRY [address] [place] [address] Adeline Chew, OD [address] [place] [address] 06/15/2024 9:45 AM EDT Office Visit [facility] MEDICINE [address] [place] [address] Bj Hayes MD [address] [place] [address] documented as of this encounter Visit Diagnoses Diagnosis Pain Generalized pain documented in this encounter Additional Health Concerns Assessment Noted Time PHQ-9 Depression Total Score: 0 08/12/19 23 2:31 PM EDT documented as of this encounter Care Teams Body Trimmer Relationship Specialty Start Date End Date Tuyet Aguilar MD [address] [place] [address] PCP - General Internal Medicine 11/11/22 documented as of this encounter
--- OUTSIDE RECORDS SUMMARY | 2024-04-20 17:05 | XMS_ITS | Encounter Summary ---
Author Organization [employer] Address 75 [facility] 7t [place] [address] Care Team Providers Care Member Of The Legislative Council Name Role Phone Tuyet Aguilar MD Primary Care Pro vider Reason for Visit * Reason Comments Med Refill Encounter Details Date Type Department Care Team ([facility] st Contact Info) Description 06/21/2023 Refill [facility] MEDICINE [address] [place] [address] Tuyet Aguilar MD [address] [place] [address] Pain Social History Tobacco Use Types Packs/Day [...] encounter Miscellaneous Notes * Telephone Encounter - Tuyet Mckinney MD - 06/21/2023 5:31 PM EDT Med was recently prescribed in 06/10/2023 documented in this encounter Plan of Treatment Upcoming Encounters Date Type Department Care Team (Late st Contact Info) Description 05/18/2024 1:30 PM EDT Office Visit [facility] OPTOMETRY [address] [place] [address] Adeline Chew, OD [address] [place] [address] 06/15/2024 9:45 AM EDT Office Visit [facility] MEDICINE [address] [place] [address] Bj Hayes MD [address] [place] [address] documented as of this encounter Visit Diagnoses Diagnosis Pain Generalized pain documented in this encounter Additional Health Concerns Assessment Noted Time PHQ-9 Depression Total Score: 0 08/12/19 2:31 PM EDT documented as of this encounter Care Teams Member Of The Legislative Council Relationship Specialty Start Date End Date Tuyet Aguilar MD [address] [place] [address] PCP - General Internal Medicine 11/11/22 documented as of this encounter
--- OUTSIDE RECORDS SUMMARY | 2024-04-20 17:05 | XMS_ITS | Encounter Summary ---
Author Organization [employer] Address [address] [facility] 7t [place] [address] Care Team Providers Care Fire Control Mechanic Name Role Phone Tuyet Aguilar MD Primary Care Pro vider Reason for Visit * Reason Comments Med Refill Encounter Details Date Type Department Care Team ([facility] st Contact Info) Description 09/15/2023 Refill [facility] MEDICINE [address] [place] [address] Tuyet Aguilar MD [address] [place] [address] Pain Social History Tobacco Use Types Packs/Day [...] Description 05/18/2024 1:30 PM EDT Office Visit [facility] OPTOMETRY [address] [place] [address] Jeevan, Adeline, OD [address] [place] [address] 06/15/2024 9:45 AM EDT Office Visit [facility] MEDICINE [address] [place] [address] Bj Hayes MD [address] [place] [address] documented as of this encounter Visit Diagnoses Diagnosis Pain Generalized pain documented in this encounter Additional Health Concerns Assessment Noted Time PHQ-9 Depression Total Score: 0 06/29/19 24 2:13 PM EDT documented as of this encounter Care Teams Fire Control Mechanic Relationship Specialty Start Date End Date Tuyet Aguilar MD [address] [place] [address] PCP - General Internal Medicine 11/11/22 documented as of this encounter
--- OUTSIDE RECORDS SUMMARY | 2024-04-20 17:05 | XMS_ITS | Encounter Summary ---
Author Organization [employer] Address 75 [facility] 7t [place] [address] Care Team Providers Care Farmworker Fur Name Role Phone uTyet Aguilar MD Primary Care Pro vider Reason for Visit * Reason Comments Med Refill Encounter Details Date Type Department Care Team ([facility] st Contact Info) Description 03/11/2023 Refill [facility] MEDICINE [address] [place], [place] [phone] Bj Hayes MD [address] [place], [place] [phone] Uncomplicated opioid dependence (CMS/HCC) Social History Tobacco [...] Description 05/18/2024 1:30 PM EDT Office Visit [facility] OPTOMETRY [address] [place] [address] Adeline Chew, OD [address] [place] [address] 06/15/2024 9:45 AM EDT Office Visit [facility] MEDICINE [address] [place] [address] Bj Hayes MD [address] [place] [address] documented as of this encounter Visit Diagnoses Diagnosis Uncomplicated opioid dependence (CMS/HCC) documented in this encounter Additional Health Concerns Assessment Noted Time PHQ-9 Depression Total Score: 0 08/12/19 2:31 PM EDT documented as of this encounter Care Teams Farmworker Fur Relationship Specialty Start Date End Date Tuyet Aguilar MD [address] [place] [address] PCP - General Internal Medicine 11/11/22 documented as of this encounter
--- OUTSIDE RECORDS SUMMARY | 2024-04-20 17:06 | XMS_ITS | Encounter Summary ---
Author Organization [employer] Address [address] [facility] 7t [place] [address] Care Team Providers Care E Commerce Merchant Name Role Phone Tuyet Aguilar MD Primary Care Pro vider Reason for Visit * Reason Comments Med Refill Encounter Details Date Type Department Care Team ([facility] st Contact Info) Description 06/20/2023 Refill [facility] MEDICINE [address] [place] [address] Tuyet Aguilar MD [address] [place] [address] Pain Social History Tobacco Use Types Packs/Day [...] Description 05/18/2024 1:30 PM EDT Office Visit [facility] OPTOMETRY [address] [place] [address] Adeline Chew, OD [address] [place] [address] 06/15/2024 9:45 AM EDT Office Visit [facility] MEDICINE [address] [place] [address] Bj Hayes MD [address] [place] [address] documented as of this encounter Visit Diagnoses Diagnosis Pain Generalized pain documented in this encounter Additional Health Concerns Assessment Noted Time PHQ-9 Depression Total Score: 0 08/12/19 23 2:31 PM EDT documented as of this encounter Care Teams E Commerce Merchant Relationship Specialty Start Date End Date Tuyet Aguilar MD [address] [place] [address] PCP - General Internal Medicine 11/11/22 documented as of this encounter
--- OUTSIDE RECORDS SUMMARY | 2024-04-20 17:06 | XMS_ITS | Encounter Summary ---
Author Organization [employer] Address 75 [facility] 7t [place] [address] Care Team Providers Care Critical Care Paramedic Name Role Phone Tuyet Aguilar MD Primary Care Pro vider Reason for Visit * Reason Comments Med Refill Encounter Details Date Type Department Care Team ([facility] st Contact Info) Description 03/18/2023 Refill [facility] [address] [place] [address] Tueyt Aguilar MD [address] [place] [address] Pain Social History Tobacco Use Types Packs/Day [...] Description 05/18/2024 1:30 PM EDT Office Visit [facility] [address] [place] [address] Adeline Chew, OD [address] [place] [address] 06/15/2024 9:45 AM EDT Office Visit [facility] [address] [place] [address] Bj Hayes MD [address] [place] [address] documented as of this encounter Visit Diagnoses Diagnosis Pain Generalized pain documented in this encounter Additional Health Concerns Assessment Noted Time PHQ-9 Depression Total Score: 0 08/12/19 23 2:31 PM EDT documented as of this encounter Care Teams Critical Care Paramedic Relationship Specialty Start Date End Date Tuyet Aguilar MD [address] [place] [address] PCP - General Internal Medicine 11/11/22 documented as of this encounter
--- OUTSIDE RECORDS SUMMARY | 2024-04-20 17:06 | XMS_ITS | Encounter Summary ---
Author Organization [employer] Address 75 [facility] 7t [place] [address] Care Team Providers Care Scenic Arts Supervisor Name Role Phone Tuyet Aguilar MD Primary Care Pro vider Reason for Visit * Reason Comments Med Refill Encounter Details Date Type Department Care Team ([facility] st Contact Info) Description 03/21/2023 Refill [facility] [address] [place] [address] Tuyet Aguilar MD 230 [place] [address] Pain Social History Tobacco Use Types Packs/Day [...] Description 05/18/2024 1:30 PM EDT Office Visit [facility] OPT[facility] [address] [place] [address] Adeline Chew, OD [address] [place] [address] 06/15/2024 9:45 AM EDT Office Visit [facility] [address] [place] [address] Bj Hayes MD [address] [place] [address] documented as of this encounter Visit Diagnoses Diagnosis Pain Generalized pain documented in this encounter Additional Health Concerns Assessment Noted Time PHQ-9 Depression Total Score: 0 08/12/19 23 2:31 PM EDT documented as of this encounter Care Teams Scenic Arts Supervisor Relationship Specialty Start Date End Date Tuyet Aguilar MD [address] [place] [address] PCP - General Internal Medicine 11/11/22 documented as of this encounter
--- OUTSIDE RECORDS SUMMARY | 2024-04-20 17:06 | XMS_ITS | Encounter Summary ---
Author Organization [employer] Address 75 [facility] 7t [place] [address] Care Team Providers Care Bean Sorter Name Role Phone Tuyet Aguilar MD Primary Care Pro vider Reason for Visit * Reason Comments Med Refill Encounter Details Date Type Department Care Team ([facility] st Contact Info) Description 10/06/2023 Refill [facility] [address] [place] [address] Tuyet Aguilar MD [address] [place] [address] Pain Social History Tobacco Use Types Packs/Day [...] Description 05/18/2024 1:30 PM EDT Office Visit [facility] OPTOMETRY [address] [place] [address] Jeevan, Adeline, OD 230 [place] [address] 06/15/2024 9:45 AM EDT Office Visit [facility] [address] [place] [address] Bj Hayes MD [address] [place] [address] documented as of this encounter Visit Diagnoses Diagnosis Pain Generalized pain documented in this encounter Additional Health Concerns Assessment Noted Time PHQ-9 Depression Total Score: 0 06/29/19 24 2:13 PM EDT documented as of this encounter Care Teams Bean Sorter Relationship Specialty Start Date End Date Tuyet Aguilar MD [address] [place] [address] PCP - General Internal Medicine 11/11/22 documented as of this encounter
--- OUTSIDE RECORDS SUMMARY | 2024-04-20 17:06 | XMS_ITS | Encounter Summary ---
Author Organization [employer] Address 75 [facility] 7t [place] [address] Care Team Providers Care Color Sprayer Name Role Phone Tuyet Aguilar MD Primary Care Pro vider Reason for Visit * Reason Comments Med Refill Encounter Details Date Type Department Care Team ([facility] st Contact Info) Description 11/09/2023 Refill [facility] [address] [place] [address] Tuyet Aguilar MD 230 [place] [address] Pain Social History Tobacco Use Types Packs/Day [...] Description 05/18/2024 1:30 PM EDT Office Visit [facility] OPTOMETRY [address] [place] [address] Jeevan, Adeline, OD [address] [place] [address] 06/15/2024 9:45 AM EDT Office Visit [facility] [address] [place] [address] Bj Hayes MD [address] [place] [address] documented as of this encounter Visit Diagnoses Diagnosis Pain Generalized pain documented in this encounter Additional Health Concerns Assessment Noted Time PHQ-9 Depression Total Score: 0 06/29/19 24 2:13 PM EDT documented as of this encounter Care Teams Color Sprayer Relationship Specialty Start Date End Date Tuyet Aguilar MD [address] [place] [address] PCP - General Internal Medicine 11/11/22 documented as of this encounter
== END 2024-04-20 14:54 | disposition home or self-care (01) ==
LOC: HO.HHCX 14:53
PROVIDERS: Visit Provider Internal Medicine
DX: M25.562 Pain in left knee (principal)
CPT/HCPCS: 73560

== ENCOUNTER → 2024-04-20 14:54 | Outpatient (BNV) | payer OTHER, SELFPAY | PROVIDERS: Visit Provider Radiology Diagnostic Radiology | DX: M17.12 Unilateral primary osteoarthritis, left knee (principal); J90 Pleural effusion, not elsewhere classified | CPT/HCPCS: 73560 ==

== ENCOUNTER 2024-08-08 12:51 | Outpatient (REF) | payer OTHER, SELFPAY ==
--- OUTSIDE RECORDS SUMMARY | 2024-08-09 13:58 | XMS_ITS | Encounter Summary ---
Author Organization [employer] Address 75 [facility] 7t [place] [address] Care Team Providers Care Infrastructure Manager Name Role Phone Tuyet Aguilar MD Primary Care Pro vider Reason for Visit * Reason Comments Med Refill Encounter Details Date Type Department Care Team ([facility] st Contact Info) Description 09/16/2023 Refill [facility] [address] [place] [address] Tuyet Aguilar MD 230 [place] [address] Pain Social History Tobacco Use Types Packs/Day [...] Care Team (Late st Contact Info) Description 10/11/2024 1:15 PM EDT Office Visit [address] [address] Tuyet Aguilar MD [address] [place] [address] 10/26/2024 9:00 AM EDT Clinical Support [address] [address] Merle Snider, SHELDON documented as of this encounter Visit Diagnoses Diagnosis Pain Generalized pain documented in this encounter Additional Health Concerns Assessment Noted Time PHQ-9 Depression Total Score: 0 06/29/19 24 2:13 PM EDT documented as of this encounter Care Teams Infrastructure Manager Relationship Specialty Start Date End Date Tuyet Aguilar MD [address] [place] [address] PCP - General Internal Medicine 11/11/22 documented as of this encounter
== END 2024-08-08 12:52 | disposition home or self-care (01) ==
LOC: HO.HOSX 12:51
PROVIDERS: Visit Provider Physician Assistant
DX: M25.562 Pain in left knee (principal); M17.12 Unilateral primary osteoarthritis, left knee
CPT/HCPCS: 99202

== ENCOUNTER 2024-08-08 14:01 | Outpatient (AMB) | payer OTHER, SELFPAY ==
--- NOTE | 2024-08-08 14:07 | A.OFFVIS_ITS ---
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 Patient was seen by his PCP who referred patient to orthopedics. Denies injury. Patient reports his knee is giving out when walking, pain with over use and pain is better with rest. He explains he is using a cane to help ambulate. States he has tried physical therapy about 6 month- 1 year ago. States he did not find it useful. No history of knee injections. Individualized Education Plan Aide Required: Yes Individualized Education Plan Aide Services: Individualized Education Plan Aide Present Individualized Education Plan Aide Name: Koffi Awad ID#[id number] Allergies ibuprofen Adverse Reaction (Severe, Verified 08/08/24 14:15) heart racing Medication List - Last Reconciled 08/08/24 by Yuriy Parsons PA-C acetaminophen 325 mg PO Q8-10H PRN aspirin 81 mg PO DAILY atorvastatin 20 mg PO DAILY buprenorphine-naloxone 8-2 mg 1 film sublingual BID chlorhexidine gluconate 0.12% 15 mL PO BEDTIME cholecalciferol (vitamin D3) (Vitamin D3) 50 mcg PO DAILY clonazepam 0.5 mg PO DAILY PRN docusate sodium 100 mg PO BID PRN empagliflozin 25 mg PO DAILY lamotrigine 50 mg PO BEDTIME lisinopril-hydrochlorothiazide 20-25 mg 1 tab PO DAILY metformin ER 500 mg PO QPM mirtazapine 15 mg PO BEDTIME naloxone 4 mg/actuation 4 mg intranasal Q2M PRN omega 4-yeg-bix-fish oil 300 mg (120 mg- 180mg)-1,000 mg 1 cap PO BID quetiapine 200 mg PO BEDTIME sitagliptin phosphate (Januvia) 50 mg PO DAILY HPI HPI 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 He has pain with walking long distances and he has difficulty with stairs. He states he feels the knee is going to give out on him. He uses a cane for ambulation. He has done PT for the knee. Denies any other treatment to date. He is on suboxone, rx by a clinic in [facility] [place] -he has been on suboxone for about a year [facility] Medical History (Updated 08/08/24 @ 14:47 by Yuriy Parsons PA-C) Hypercalcemia Hepatitis B HLD (hyperlipidemia) Knee pain Hx of syphilis Hepatitis C Bipolar 1 disorder PTSD (post-traumatic stress disorder) Substance abuse in remission Liver fibrosis Aortic valve stenosis Obesity HTN (hypertension) Diabetes Surgical History Hx of appendectomy Social History (Updated 08/08/24 @ 14:16 by ELENA House) Patient Tobacco Use Status: Former Tobacco user Current occupational status: disabled 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 No erythema or joint effusion. He has a varus deformity. Results Reviewed Results Reviewed: xrays of the left knee 04/20/24 show medial collapse * xrays of the right knee 08/02/23 mild to moderate oa Assessment & Plan Assessment & Plan (1) Osteoarthritis of left knee: Code(s): M17.12 - Unilateral primary osteoarthritis, left knee Category: Medical (2) Osteoarthritis of right knee: Code(s): M17.11 - Unilateral primary osteoarthritis, right knee Category: Medical Plan We discussed options today which include conservative treatment with anti- inflammatories, bracing and physical therapy. We also discussed the benefits of steroid injections. The patient is diabetic and we are going to hold off on injections today. I did send a prescription for Celebrex to the pharmacy to take twice a day for 2 weeks. He was fit for bilateral knee Genumed knee braces in the office today and an order for physical therapy was placed. If symptoms persist or worsen he can contact our office to proceed with a steroid injection. I also briefly discussed the role of total knee arthroplasty in the setting that he fails conservative management and continues to have limitations with daily activities. He will follow up as needed. Orders: Orders PT Evaluation and Treatment Today M17.12 - Unilateral primary osteoarthritis, left knee XR knee LT 2V Today M25.562 - Pain in left knee Medications: New celecoxib (Celebrex) 200 mg PO BID 60 caps 3RF 30 days Coding Level of Care Code New Pt Level 3 (95838) Complex EM visit Add On G2211 Diagnoses Osteoarthritis of left knee M17.12 Osteoarthritis of right knee M17.11
== END 2024-08-08 15:19 | disposition home or self-care (01) ==
LOC: HO.HOS 14:02
PROVIDERS: Visit Provider Physician Assistant
DX: M17.0 Bilateral primary osteoarthritis of knee (principal)
CPT/HCPCS: 99203; G2211

== ENCOUNTER 2024-09-26 14:06 | Outpatient (RCR) | payer OTHER, SELFPAY ==
--- NOTE | 2024-08-29 15:07 | MHC.PT.EP ---
[facility] [place] Office [place] Office [place] Office [address] Deion Vale [address] [phone] F: [phone] F: [phone] F: [phone] F: [phone] Physical Therapy Plan of Care Date of Evaluation: 08/29/24 Date of Surgery: Diagnosis: LEFT KNEE OA Assessment: 64 YO MALE REF TO PT FOR Lt KNEE OA- HE PRESENTS AMB W A CANE AND Lt KNEE CLOSED PATELLA BRACE- HE RESIDES ALONE IN A 5TH FLOOR APT, HAS MOW; OBJECTIVE FINDINGS: LIMITED ROM Lt KNEE AND SIGNIF LIMITATION IN HIS Rt HIP JT, STRENGTH DEFICITS PHUONG LEs, ALTERED GAIT, INCR UEs COMPENSATION W TRANSFERS, AND PAIN IMPACTING FUNC MOB ÓSCAR. WE DISCUSSED PT POC AND THE Pt AGREES TO PROCEED CAUTIOUSLY W A TRIAL OF PT. Frequency and Duration: The patient will be seen 2 x WK x 4 WKS Short Term Goals: DECR Lt KNEE PAIN INITIATE HEP-> Lt KNEE AND Rt HIP STAB WELL AROM IMPROVE SIT <-> STAND TRANSFERS, DECR UEs DOMINANCE Alf Goals: INDEP HEP IMPROVED GAIT MECH ON LEVEL GROUND AND STAIRS , W CANE IMPROVED TUG , AT EVAL 17 SEC W CANE INCR FUNCT MOB ÓSCAR-> OSWESTRY , AT EVAL 26/80 Treatment Plan: Modalities to reduce pain, spasms and effusion. Manual therapy to restore motion and function. Therapeutic exercise to improve strength and flexibility. Neuromuscular re-education for posture and balance. Therapeutic activities to return to functional activities of daily living. Electronically signed by: EMORY GAITAN,PT Please sign and return to therapist. Thank you for your referral.
--- NOTE | 2024-12-12 15:04 | MHC.PT.DC ---
[facility] [place] Office [place] Office [place] Office [address] Deion Vale [address] [phone] F: [phone] F: [phone] F: [phone] F: [phone] Physical Therapy Discharge Report Diagnosis: LEFT KNEE OA Date of Surgery: Date of Evaluation: 08/29/24 Date of Discharge: 12/12/24 Treatments to Date: 6 Cancellations to Date: No Shows to Date: 3 Discharge Status: Improved Function Independent with HEP Patient Elected to Stop Visit Non-compliance Discharge Summary: LATHA REMAINS MOTIVATED W HEP, W RESPECT TO Rt HIP OA AND Lt KNEE OA- LATHA DENIED Jt SXS, HE HAD MUSCULAR FFFORT- AT LAST ATTENDED PT SESSIONS, WE ADDRESSED TRUNK STABILIZ/ HIP MM ACTIV- EXERCISES THAT THE Pt CAN PERFORM AT HOME UPON HIS D/C FROM PT. THE Pt DID NOT ATTEND HIS LAST SCHED APPTS SO A FORMAL REASSESSMENT WAS NOT PERF. Electronically signed by: EMORY GAITAN,PT Please sign and return to therapist. Thank you for your referral.
== END 2024-12-12 15:05 | disposition home or self-care (01) ==
LOC: HO.PT 14:06
PROVIDERS: PCP Student in an Organized Health Care Education/Training Program; Visit Provider Physician Assistant
DX: M17.12 Unilateral primary osteoarthritis, left knee (principal)
CPT/HCPCS: 97110; 97112; 97162

== ENCOUNTER 2024-10-09 09:17 | Outpatient (REF) | payer OTHER, SELFPAY ==
--- OUTSIDE RECORDS SUMMARY | 2024-10-09 10:20 | XMS_ITS | Encounter Summary ---
Author Organization [employer] Address 75 [facility] 7t [place] [address] Care Team Providers Care Blow Mold Machine Operator Name Role Phone Tuyet Aguilar MD Primary Care Pro vider Reason for Visit * Reason Comments Med Refill Encounter Details Date Type Department Care Team ([facility] st Contact Info) Description 09/16/2023 Refill [facility] [address] [place] [address] Tuyet Aguilar MD 230 [place] [address] Pain Social History Tobacco Use Types Packs/Day [...] Description 10/11/2024 1:15 PM EDT Office Visit [address] [address] Tuyet Aguilar MD [address] [place] [address] 10/26/2024 9:00 AM EDT Clinical Support [address] [address] Merle Snider, SHELDON documented as of this encounter Visit Diagnoses Diagnosis Pain Generalized pain documented in this encounter Additional Health Concerns Assessment Noted Time PHQ-9 Depression Total Score: 0 06/29/19 24 2:13 PM EDT documented as of this encounter Care Teams Blow Mold Machine Operator Relationship Specialty Start Date End Date Tuyet Aguilar MD [address] [place] [address] PCP - General Internal Medicine 11/11/22 documented as of this encounter
[2024-10-09 11:19] LABS: Hematocrit 41.2 % (42.0-52.0); Hemoglobin 13.9 g/dl (14.0-18.0); Mean Corpuscular HGB Conc 33.7 g/dl (31.0-36.0); Mean Corpuscular Hemoglobin 30.5 pg (27.0-33.0); Mean Corpuscular Volume 90.4 fL (80.0-98.0); NRBC Abs Auto 0.000 X10*3/uL (0.0-0.012); NRBC Pct Auto 0.0 /100WBC (0.0-0.2); Platelet Count 228 X10*3/uL (160-400); Red Blood Count 4.56 X10*6/uL (4.60-5.80); White Blood Count 8.7 X10*3/uL (4.8-10.8)
[2024-10-09 11:29] LABS: Hemoglobin A1C 197.9515 umol/L; Total Hemoglobin (HGBA1C) 3684.6475 umol/L
[2024-10-09 11:47] LABS: Alanine Aminotransferase 52 U/L (0-40); Albumin Level 4.6 g/dL (3.5-5.0); Alkaline Phosphatase 111 U/L (39-117); Anion Gap 13 (12-20); Aspartate Amino Transferase 40 U/L (5-37); Blood Urea Nitrogen 14 mg/dL (9-16); Calcium 9.4 mg/dL (8.4-10.2); Carbon Dioxide 28 mmol/L (22-29); Chloride 99 mmol/L (96-108); Cholesterol 195 mg/dL (<200); Estimated Glomerular Filt Rate > 60; HDL Cholesterol 58 mg/dL (>40); Potassium 3.7 mmol/L (3.3-5.1); Sodium 136 mmol/L (135-145); Total Protein 8.3 g/dL (6.5-8.0); Triglycerides 224 mg/dL (<150)
[2024-10-09 11:52] LABS: Microalbum/Creatinine Ratio Ur 9.9 ug/mg cr (<30)
[2024-10-09 11:58] LABS: Syphilis Screen Reactive (Nonreactive)
[2024-10-09 12:02] LABS: Prostate Specific Antigen 0.23 ng/mL (<0.05-4.0)
[2024-10-09 12:16] LABS: HBS Num1 131.70 mIU/mL (0-7.99); HBc Num1 12.93 S/CO (0.00-0.79); HBsAGNum1 0.44 S/CO (0.00-0.99); HIV Num 1 0.08 S/CO (0.00-0.99); Hepatitis B Surface Antigen Negative (Negative); ~HepC Num1 0.46 S/CO (0.00-0.79); ~Hepatitis B Surface Antibody REACTIVE (Nonreactive); ~Hepatitis C Antibody Nonreactive (Nonreactive)
[2024-10-09 13:39] LABS: HBc Num2 12.80 S/CO; HBc Num3 12.97 S/CO
[2024-10-10 10:45] LABS: Iron 104 mcg/dL (45-160); Percent Iron Saturation 35 % (15-50); Total Iron Binding Capacity 300 mcg/dL (228-428); Unsaturated Iron Binding 196 ug/dL
[2024-10-10 10:58] LABS: Ferritin 189 ng/mL (20-250)
[2024-10-12 11:13] LABS: T.Pallidum Particle Agg Test Reactive (Nonreactive)
== END 2024-10-09 09:18 | disposition home or self-care (01) ==
LOC: HO.HHCL 09:17
PROVIDERS: PCP Student in an Organized Health Care Education/Training Program; Visit Provider Student in an Organized Health Care Education/Training Program
DX: Z00.00 Encounter for general adult medical examination without abnormal findings (principal); Z12.5 Encounter for screening for malignant neoplasm of prostate; Z13.6 Encounter for screening for cardiovascular disorders; Z13.1 Encounter for screening for diabetes mellitus; Z11.3 Encounter for screening for infections with a predominantly sexual mode of transmission; Z11.59 Encounter for screening for other viral diseases; Z11.4 Encounter for screening for human immunodeficiency virus [HIV]
CPT/HCPCS: 36415; 80053; 80061; 82043; 82306; 82570; 82728; 83036; 83540; 84153; 84443; 85027; 86592; 86704; 86706; 86780; 86803; 87340; 87389

== ENCOUNTER → 2025-01-02 14:51 | Outpatient (BNV) | payer OTHER, SELFPAY | PROVIDERS: Visit Provider Radiology Diagnostic Ultrasound | DX: M17.0 Bilateral primary osteoarthritis of knee (principal) | CPT/HCPCS: 73565 ==

== ENCOUNTER 2025-01-02 14:52 | Outpatient (AMB) | payer OTHER, SELFPAY ==
--- NOTE | 2025-01-02 14:59 | MHC.OFFVIS ---
Intake Visit Reasons: OV- Left Knee OA Intake Note: Petey is a 64 year old male who presents today for a follow up of left knee OA. At last visit we fitted him for bilateral knee Genumed knee braces in the office and placed an order for physical therapy. At today's visit he reports pain in both knees with movement of his legs, stating his left knee is the worse. He attedded therapy, however this did not provide him with much relief. He states knee bracing is not helping. President Financial Institution Required: Yes President Financial Institution Services: President Financial Institution Present President Financial Institution Name: Harry ID#[id number] Allergies ibuprofen Adverse Reaction (Severe, Verified 01/02/25 15:01) heart racing Medication List - Last Reconciled 01/02/25 by Yuriy Parsons PA-C acetaminophen 325 mg PO Q8-10H PRN [Anti-pronation orthotics Anti-pronation orthotics] aspirin 81 mg PO DAILY atorvastatin 20 mg PO DAILY buprenorphine-naloxone 8-2 mg 1 film sublingual BID celecoxib 200 mg PO BID chlorhexidine gluconate 0.12% 15 mL PO BEDTIME cholecalciferol (vitamin D3) (Vitamin D3) 50 mcg PO DAILY clonazepam 0.5 mg PO DAILY PRN docusate sodium 100 mg PO BID PRN empagliflozin 25 mg PO DAILY lamotrigine 50 mg PO BEDTIME lisinopril-hydrochlorothiazide 20-25 mg 1 tab PO DAILY metformin ER 500 mg PO QPM mirtazapine 15 mg PO BEDTIME naloxone 4 mg/actuation 4 mg intranasal Q2M PRN omega 8-qzx-qdu-fish oil 300 mg (120 mg- 180mg)-1,000 mg 1 cap PO BID quetiapine 200 mg PO BEDTIME sitagliptin phosphate (Januvia) 50 mg PO DAILY HPI HPI OV- Left Knee OA: Details: 64 yo male returns to the office today for f/u left knee pain, at his last appt he was give a knee brace and PT which was somewhat helpful. He continues to have pain with walking long distances and movement such as going up stairs or sitting in a chair is difficult. We did discuss steroid injections at the last appt which we decided to hold off on at that time. He was also given Celebrex which is somewhat helpful. He has instability in the left knee with ambulation. 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 No erythema or joint effusion. He has a varus deformity with laxity on exam. Results Reviewed Results Reviewed: Xrays were obtained in the office today and personally reviewed by me of the left knee show medial joint space narrowing Assessment & Plan Assessment & Plan (1) Osteoarthritis of left knee: Code(s): M17.12 - Unilateral primary osteoarthritis, left knee Category: Medical Qualifiers: Osteoarthritis type: primary Qualified Code(s): M17.12 - Unilateral primary osteoarthritis, left knee Plan: We discussed options today which include steroid injection which the patient is still not interested in. I sent him a prescription for gel cream to the pharmacy to use for his discomfort. I also ordered him a medial loader unloader brace for the left knee. I encouraged him to continue working on his home exercise program from physical therapy to strengthen the muscles around the knee. If he changes his mind about steroid injections he can always contact us to make an appointment. Otherwise she will follow up as needed. Orders: Orders XR knee standing BI Today M25.561 - Pain in right knee, M25.562 - Pain in left knee Medications: New diclofenac sodium 1% apply 4grams to affected area four times a day as needed 4 grams topical QID 100 grams 6RF 30 days Coding Level of Care Code Est Pt Level 3 (87341) Complex EM visit Add On G2211 Diagnoses Primary osteoarthritis of left knee M17.12 Osteoarthritis type: primary
--- OUTSIDE RECORDS SUMMARY | 2025-01-02 18:15 | XMS_ITS | Encounter Summary ---
Author Organization [employer] Address 75 [facility] 7t [place] [address] Care Team Providers Care Postbed Stitcher Name Role Phone Tuyet Aguilar MD Primary Care Pro vider Reason for Visit * Reason Comments Med Refill Encounter Details Date Type Department Care Team ([facility] st Contact Info) Description 09/15/2023 Refill [facility] [address] [place] [address] Tuyet Aguilar MD [address] [place] [address] Pain Social History Tobacco Use Types Packs/Day [...] Care Team (Late st Contact Info) Description 01/11/2025 9:30 AM EST Office Visit [facility] [address] [place] [address] Bj Hayes MD [address] [place] [address] 03/15/2025 1:00 PM EST Office Visit [facility] [address] [place] [address] Tuyet Aguilar MD [address] [place] [phone] documented as of this encounter Visit Diagnoses Diagnosis Pain Generalized pain documented in this encounter Additional Health Concerns Assessment Noted Time PHQ-9 Depression Total Score: 0 06/29/19 24 2:13 PM EDT documented as of this encounter Care Teams Postbed Stitcher Relationship Specialty Start Date End Date Tuyet Aguilar MD [address] [place] [address] PCP - General Internal Medicine 11/11/22 documented as of this encounter
--- OUTSIDE RECORDS SUMMARY | 2025-01-02 18:15 | XMS_ITS | Encounter Summary ---
Author Organization [employer] Address 75 [facility] 7t [place] [address] Care Team Providers Care Personal Vehicle Advisor Name Role Phone Tuyet Aguilar MD Primary Care Pro vider Reason for Visit * Reason Comments Med Refill Encounter Details Date Type Department Care Team ([facility] st Contact Info) Description 03/09/[address] [facility] MEDICINE [address] [place] [address] Tuyet Aguilar MD [address] [place] [address] Pain Social History Tobacco Use Types Packs/Day [...] Description 01/11/2025 9:30 AM EST Office Visit [facility] MEDICINE [address] [place] [address] Bj Hayes MD [address] [place] [phone] 03/15/2025 1:00 PM EST Office Visit [address] [address] Tuyet Aguilar MD [address] [place] [address] documented as of this encounter Visit Diagnoses Diagnosis Pain Generalized pain documented in this encounter Additional Health Concerns Assessment Noted Time PHQ-9 Depression Total Score: 0 08/12/19 23 2:31 PM EDT documented as of this encounter Care Teams Personal Vehicle Advisor Relationship Specialty Start Date End Date Tuyet Aguilar MD [address] [place] [address] PCP - General Internal Medicine 11/11/22 documented as of this encounter
--- OUTSIDE RECORDS SUMMARY | 2025-01-02 18:15 | XMS_ITS | Encounter Summary ---
Author Organization [employer] Address 75 [facility] 7t [place] [address] Care Team Providers Care Primary Substance Abuse Counselor Name Role Phone Tuyet Aguilar MD Primary Care Pro vider Reason for Visit * Reason Comments Med Refill Encounter Details Date Type Department Care Team ([facility] st Contact Info) Description 09/20/2023 Refill [facility] 230 [place] [address] Tuyet Aguilar MD 230 [place] [address] Social History Tobacco Use Types Packs/Day Years [...] Description 01/11/2025 9:30 AM EST Office Visit [facility] [address] [place] [address] Bj Hayes MD [address] [place] [address] 03/15/2025 1:00 PM EST Office Visit [facility] [address] [place] [address] Tuyet Aguilar MD [address] [place] [address] [phone] documented as of this encounter Visit Diagnoses Not on filedocumented in this encounter Additional Health Concerns Assessment Noted Time PHQ-9 Depression Total Score: 0 06/29/19 24 2:13 PM EDT documented as of this encounter Care Teams Primary Substance Abuse Counselor Relationship Specialty Start Date End Date Tuyet Aguilar MD [address] [place] [phone] PCP - General Internal Medicine 11/11/22 documented as of this encounter
--- OUTSIDE RECORDS SUMMARY | 2025-01-02 18:15 | XMS_ITS | Encounter Summary ---
Author Organization [employer] Address [address] [place] [address] 7t [place] [address] Care Team Providers Care Tank Hoop Bender Name Role Phone Ghulam Krueger SIMIN Primary Care Provider Unavail Zulema Woodall Primary Care Provider [phone] Tuyet Aguilar MD Primary Care Pro vider Reason for Visit * Reason Comments Med Refill Encounter Details Date Type Department Care Team (Late st Contact Info) Description 09/24/2022 Refill [facility] 230 [place], [place] [phone] Bj Hayes MD [address] [place] [address] [phone] Uncomplicated opioid dependence (CMS/[facility]) Social History Tobacco Use Types [...] Description 01/11/2025 9:30 AM EST Office Visit [facility] 230 [place], [place] [phone] Bj Hayes MD 230 [place], [place] [phone] 03/15/2025 1:00 PM EST Office Visit [facility] [address] [place] [address] [phone] Tuyet Aguilar MD [address] [place] [address] [phone] documented as of this encounter Visit Diagnoses Diagnosis Uncomplicated opioid dependence (CMS/HCC) (HCC) documented in this encounter Additional Health Concerns Assessment Noted Time PHQ-9 Depression Total Score: 0 08/12/19 2:31 PM EDT documented as of this encounter Care Teams Tank Hoop Bender Relationship Specialty Start Date End Date Ghulam Krueger AGNP PCP - General Family Medicine 07/23/22 10/31/22 Zulema Khan ANP [address] [place] [address] [phone] PCP - General Family Medicine 11/01/22 11/10/22 Tuyet Aguilar MD [address] [place] [address] [phone] PCP - General Internal Medicine 11/11/22 documented as of this encounter
--- OUTSIDE RECORDS SUMMARY | 2025-01-02 18:15 | XMS_ITS | Encounter Summary ---
Author Organization [employer] Address 75 [facility] 7t [place] [address] Care Team Providers Care Band Master Name Role Phone Tuyet Aguilar MD Primary Care Pro vider Reason for Visit * Reason Comments Med Refill Encounter Details Date Type Department Care Team ([facility] st Contact Info) Description 06/20/2023 Refill [facility] 230 [place] [address] Tuyet Aguilar MD 230 [place] [address] Pain Social History Tobacco Use Types Packs/Day [...] Description 01/11/2025 9:30 AM EST Office Visit [facility] [address] [place] [address] Bj Hayes MD [address] [place] [address] 03/15/2025 1:00 PM EST Office Visit [address] [address] Tuyet Aguilar MD [address] [place] [address] documented as of this encounter Visit Diagnoses Diagnosis Pain Generalized pain documented in this encounter Additional Health Concerns Assessment Noted Time PHQ-9 Depression Total Score: 0 08/12/19 23 2:31 PM EDT documented as of this encounter Care Teams Band Master Relationship Specialty Start Date End Date Tuyet Aguilar MD [address] [place] [phone] PCP - General Internal Medicine 11/11/22 documented as of this encounter
--- OUTSIDE RECORDS SUMMARY | 2025-01-02 18:15 | XMS_ITS | Encounter Summary ---
Author Organization [employer] Address [address] [facility] 7t [place] [address] Care Team Providers Care Rotogravure Press Operator Name Role Phone Tuyet Aguilar MD Primary Care Pro vider Reason for Visit * Reason Comments Med Refill Encounter Details Date Type Department Care Team ([facility] st Contact Info) Description 01/02/2024 Refill [facility] 230 [place] [address] Tuyet Aguilar MD 230 [place] [address] Essential hypertension, benign Social History Tobacco Use [...] Description 01/11/2025 9:30 AM EST Office Visit [facility] [address] [place] [address] Bj Hayes MD [address] [place] [phone] 03/15/2025 1:00 PM EST Office Visit [address] [address] Tuyet Aguilar MD [address] [place] [address] documented as of this encounter Visit Diagnoses Diagnosis Essential hypertension, benign documented in this encounter Additional Health Concerns Assessment Noted Time PHQ-9 Depression Total Score: 0 06/29/19 24 2:13 PM EDT documented as of this encounter Care Teams Rotogravure Press Operator Relationship Specialty Start Date End Date Tuyet Aguilar MD [address] [place] [phone] PCP - General Internal Medicine 11/11/22 documented as of this encounter
--- OUTSIDE RECORDS SUMMARY | 2025-01-02 18:15 | XMS_ITS | Encounter Summary ---
Author Organization [employer] Address [address] [facility] 7t [place] [address] Care Team Providers Care Enterprise Infrastructure Architect Name Role Phone Tuyet Aguilar MD Primary Care Pro vider Reason for Visit * Reason Comments Med Refill Encounter Details Date Type Department Care Team ([facility] st Contact Info) Description 07/08/[address] [facility] 230 [place] [address] Tuyet Aguilar MD 230 [place] [address] Pain Social History Tobacco Use Types Packs/Day [...] Description 01/11/2025 9:30 AM EST Office Visit [facility] [address] [place] [phone] Bj Hayes MD [address] [place] [address] 03/15/2025 1:00 PM EST Office Visit [facility] [address] [place] [address] Tuyet Aguilar MD [address] [place] [address] [phone] documented as of this encounter Visit Diagnoses Diagnosis Pain Generalized pain documented in this encounter Additional Health Concerns Assessment Noted Time PHQ-9 Depression Total Score: 0 06/29/19 24 2:13 PM EDT documented as of this encounter Care Teams Enterprise Infrastructure Architect Relationship Specialty Start Date End Date Tuyet Aguilar MD [address] [place] [phone] PCP - General Internal Medicine 11/11/22 documented as of this encounter
--- OUTSIDE RECORDS SUMMARY | 2025-01-02 18:15 | XMS_ITS | Encounter Summary ---
Author Organization [employer] Address [address] [facility] 7t [place] [address] Care Team Providers Care Nurse Epidemiologist Name Role Phone Tuyet Aguilar MD Primary Care Pro vider Reason for Visit * Reason Comments Med Refill Encounter Details Date Type Department Care Team ([facility] st Contact Info) Description 04/06/2024 Refill [facility] 230 [place] [address] Bj Hayes MD 230 [place], [place] [phone] Uncomplicated opioid dependence (CMS/[facility]) Social History Tobacco Use Types Packs/Day Years [...] Description 01/11/2025 9:30 AM EST Office Visit [facility] MEDICINE [address] [place] [address] Bj Hayes MD [address] [place] [address] 03/15/2025 1:00 PM EST Office Visit [address] [address] Tuyet Aguilar MD [address] [place] [address] documented as of this encounter Visit Diagnoses Diagnosis Uncomplicated opioid dependence (CMS/HCC) (HCC) documented in this encounter Additional Health Concerns Assessment Noted Time PHQ-9 Depression Total Score: 0 06/29/19 24 2:13 PM EDT documented as of this encounter Care Teams Nurse Epidemiologist Relationship Specialty Start Date End Date Tuyet Aguilar MD [address] [place] [address] [phone] PCP - General Internal Medicine 11/11/22 documented as of this encounter
--- OUTSIDE RECORDS SUMMARY | 2025-01-02 18:15 | XMS_ITS | Encounter Summary ---
Author Organization [employer] Address 75 [facility] 7t [place] [address] Care Team Providers Care Senior Net Web Developer Name Role Phone Tuyet Aguilar MD Primary Care Pro vider Reason for Visit * Reason Comments Med Refill Encounter Details Date Type Department Care Team ([facility] st Contact Info) Description 09/16/2023 Refill [facility] 230 [place] [address] Tuyet Aguilar MD 230 [place] [address] Pain Social History Tobacco Use Types Packs/Day [...] 9:30 AM EST Office Visit [facility] MED[facility]INE [address] [place] [address] Bj Hayes MD [address] [place] [address] 03/15/2025 1:00 PM EST Office Visit [facility] MED[facility]INE [address] [place] [address] Tuyet Aguilar MD [address] [place] [address] [phone] documented as of this encounter Visit Diagnoses Diagnosis Pain Generalized pain documented in this encounter Additional Health Concerns Assessment Noted Time PHQ-9 Depression Total Score: 0 06/29/19 24 2:13 PM EDT documented as of this encounter Care Teams Senior Net Web Developer Relationship Specialty Start Date End Date Tuyet Aguilar MD [address] [place] [phone] PCP - General Internal Medicine 11/11/22 documented as of this encounter
--- OUTSIDE RECORDS SUMMARY | 2025-01-02 18:15 | XMS_ITS | Encounter Summary ---
Author Organization [employer] Address 75 [facility] 7t [place] [address] Care Team Providers Care Instructor [employer]ence [employer] Name Role Phone Tuyet Aguilar MD Primary Care Pro vider Reason for Visit * Reason Comments Med Refill Encounter Details Date Type Department Care Team ([facility] st Contact Info) Description 01/29/2024 Refill [facility] 230 [place] [address] Tuyet Aguilar MD 230 [place] [address] Social History Tobacco Use Types Packs/Day Years [...] Description 01/11/2025 9:30 AM EST Office Visit [facility] [address] [place] [phone] Bj Hayes MD [address] [place] [phone] 03/15/2025 1:00 PM EST Office Visit [facility] [address] [place] [address] Tuyet Aguilar MD [address] [place] [phone] documented as of this encounter Visit Diagnoses Not on filedocumented in this encounter Additional Health Concerns Assessment Noted Time PHQ-9 Depression Total Score: 0 06/29/19 24 2:13 PM EDT documented as of this encounter Care Teams Instructor [employer] Relationship Specialty Start Date End Date Tuyet Aguilar MD [address] [place] [phone] PCP - General Internal Medicine 11/11/22 documented as of this encounter
--- OUTSIDE RECORDS SUMMARY | 2025-01-02 18:15 | XMS_ITS | Encounter Summary ---
Author Organization [employer] Address 75 [facility] 7t [place] [address] Care Team Providers Care Rat Farmer Name Role Phone Tuyet Aguilar MD Primary Care Pro vider Reason for Visit * Reason Comments Med Refill Encounter Details Date Type Department Care Team ([facility] st Contact Info) Description 06/10/2024 Refill [facility] 230 [place] [address] Rakel Ng MD 230 [place], [place] [phone] Pain Social History Tobacco Use Types Packs/Day [...] Description 01/11/2025 9:30 AM EST Office Visit [address] [address] Bj Hayes MD [address] [place] [address] 03/15/2025 1:00 PM EST Office Visit [address] [address] Tuyet Aguilar MD [address] [place] [address] documented as of this encounter Goals Goal Patient Goal Type Associated Problems Recent Progress Patient-Stated? Author Increase coping skills to promote long-term recovery and improve ability to perform daily activities General No Merle Snider, SHELDON documented as of this encounter Visit Diagnoses Diagnosis Pain Generalized pain documented in this encounter Additional Health Concerns Assessment Noted Time PHQ-9 Depression Total Score: 0 04/13/19 25 10:40 AM EST documented as of this encounter Care Teams Rat Farmer Relationship Specialty Start Date End Date Tuyet Aguilar MD [address] [place] [phone] PCP - General Internal Medicine 11/11/22 documented as of this encounter
--- OUTSIDE RECORDS SUMMARY | 2025-01-02 18:15 | XMS_ITS | Encounter Summary ---
Author Organization [employer] Address 75 [facility] 7t [place] [address] Care Team Providers Care Belt Builder Name Role Phone Tuyet Aguilar MD Primary Care Pro vider Encounter Details Date Type Department Care Team ([facility] st Contact Info) Description 11/30/2024 Refill [facility]INE 230 [place] [address] Tuyet Aguilar MD 230 [place] [address] Routine health maintenance Social History Tobacco Use Types Packs/Day Years Used Date Smoking Tobacco: Never Passive Smoke Exposure: Never Smokeless Tobacco: Never Alcohol Use Standard [...] Access Answer Date Recorded Internet Access Q1 No 10/11/2024 Internet Access Q2 I do not want or need it 09/22 Sex and Gender Information Value Date Recorded Sex Assigned at Male 12/21/2021 10:14 AM EDT Legal Sex Male 10:14 AM EDT Gender Identity Male 12/21/2021 10:14 AM EDT Sexual Orientation Straight 12/21/2021 10 :14 AM EDT documented as of this encounter Plan of Treatment Upcoming Encounters Date Type Department Care Team (Late st Contact Info) Description 01/11/2025 9:30 AM EST Office Visit [address] [address] Bj Hayes MD [address] [place] [address] 03/15/2025 1:00 PM EST Office Visit [address] [address] Tuyet Aguilar MD [address] [place] [address] documented as of this encounter Goals Goal Patient Goal Type Associated Problems Recent Progress Patient-Stated? Author Increase coping skills to promote long-term recovery and improve ability to perform daily activities General Merle Harding RN documented as of this encounter Visit Diagnoses Diagnosis Routine health maintenance Unspecified examination documented in this encounter Additional Health Concerns Assessment Noted Time PHQ-9 Depression Total Score: 0 04/13/19 25 10:40 AM EST documented as of this encounter Care Teams Belt Builder Relationship Specialty Start Date End Date Tuyet Aguilar MD [address] [place] [phone] PCP - General Internal Medicine 11/11/22 documented as of this encounter
--- OUTSIDE RECORDS SUMMARY | 2025-01-02 18:15 | XMS_ITS | Encounter Summary ---
Author Organization [employer] Address 75 [facility] 7t [place] [address] Care Team Providers Care Firearms Assembly Supervisor Name Role Phone Tuyet Aguilar MD Primary Care Pro vider Reason for Visit * Reason Comments Med Refill Encounter Details Date Type Department Care Team ([facility] st Contact Info) Description 12/01/2022 Refill [facility] MED[facility]INE 230 [place] [address] Ghulam Krueger AGNP Pain Social History Tobacco [...] Description 01/11/2025 9:30 AM EST Office Visit [facility] MEDICINE [address] [place] [address] Bj Hayes MD [address] [place] [address] 03/15/2025 1:00 PM EST Office Visit [facility] MEDICINE [address] [place] [address] Tuyet Aguilar MD [address] [place] [address] documented as of this encounter Visit Diagnoses Diagnosis Pain Generalized pain documented in this encounter Additional Health Concerns Assessment Noted Time PHQ-9 Depression Total Score: 0 08/12/19 23 2:31 PM EDT documented as of this encounter Care Teams Firearms Assembly Supervisor Relationship Specialty Start Date End Date Tuyet Aguilar MD [address] [place] [phone] PCP - General Internal Medicine 11/11/22 documented as of this encounter
--- OUTSIDE RECORDS SUMMARY | 2025-01-02 18:15 | XMS_ITS | Encounter Summary ---
Author Organization [employer] Address 75 [facility] 7t [place] [address] Care Team Providers Care Conditioning Machine Operator Name Role Phone Tuyet Aguilar MD Primary Care Pro vider Reason for Visit * Reason Comments Med Refill Encounter Details Date Type Department Care Team ([facility] st Contact Info) Description 01/13/2024 Refill [facility] 230 [place] [address] Tuyet Aguilar MD 230 [place] [address] Pain Social History Tobacco Use Types Packs/Day [...] Description 01/11/2025 9:30 AM EST Office Visit [facility] [address] [place] [address] Bj Hayes MD [address] [place] [address] 03/15/2025 1:00 PM EST Office Visit [address] [address] Tuyet Aguilar MD [address] [place] [phone] documented as of this encounter Visit Diagnoses Diagnosis Pain Generalized pain documented in this encounter Additional Health Concerns Assessment Noted Time PHQ-9 Depression Total Score: 0 06/29/19 24 2:13 PM EDT documented as of this encounter Care Teams Conditioning Machine Operator Relationship Specialty Start Date End Date Tuyet Aguilar MD [address] [place] [phone] PCP - General Internal Medicine 11/11/22 documented as of this encounter
--- OUTSIDE RECORDS SUMMARY | 2025-01-02 18:15 | XMS_ITS | Clinical Summary ---
Author Organization [employer] Address [address] [place] [address] Care Team Providers Care [id number] Armor Crewman Name Role Phone Tuyet Aguilar MD Primary Care Pro vider Allergies Active Allergy Reactions Criticality Noted Date Comments Metformin 12/05/2020 Other reaction(s): GI Problems Medications * This document contains information received from the source organization and may not represent a complete record from that organization. clonazePAM (KlonoPIN) 0.5 MG tablet TAKE 1 [...] mg by mouth at bedtime. 023 Active QUEtiapine (SEROquel) 200 MG tablet Take 200 mg by mouth at bedtime. 023 Active chlorhexidine (Peridex) 0.12 % solution Please use 15 ml solution orally every night before bed. Swish for 30 seconds and spit. 120 mL 023 Active Alcohol Swabs (Alcohol Prep) 70 % pads USE DIRECTED TO TEST BLOOD SUGAR TWICE DAILY 100 each 11 024 Active Emollient (CeraVe Daily Moisturizing) lotion Apply 1 Application topically at noon and 1 Application in the evening. 87 mL 2 024 Active Diclofenac Sodium 1 % gel APPLY 2 GRAMS TOPICALLY TO AFFECTED AREA(S) ONCE DAILY NEEDED FOR KNEE PAIN 100 g 1 01/21/2 025 Active ammonium lactate (Lac-Hydrin) 12 % lotion APPLY TOPICALLY TO THE plantas OF FEET DAILY. AT NIGHT WEAR SOCKS TO BED Active lamoTRIgine (LaMICtal) 100 MG tablet Take 1 tablet by mouth at bedtime. Active QUEtiapine (SEROquel) 50 MG tablet TAKE 1 TABLET BY MOUTH TWICE DAILY IN THE MORNING AND IN THE EVENING NEEDED Active glucose blood (FREESTYLE LITE) test stripIndications: Type 2 diabetes mellitus without complication, without long-term current use of insulin ([facility]) TEST BLOOD SUGAR 1-2 TIMES PER DAY DIRECTED 100 strip 11 Active TRUEplus Lancets 33G miscIndications:T ype 2 diabetes mellitus without complication, without long-term current use of insulin ([facility]) USE DIRECTED TO TEST BLOOD SUGAR ONE OR TWO TIMES DAILY 100 each 11 Active lisinopril-hydroC HLOROthiazide 20-25 MG tabletIndications :Essential hypertension, benign TAKE 1 TABLET BY MOUTH EVERY MORNING 90 tablet 1 Active Jardiance 25 MG TAKE 1 TABLET BY MOUTH EVERY MORNING 90 tablet 1 Active docusate sodium (Colace) 100 MG capsuleIndication s:Other constipation Take 1 capsule (100 mg) by mouth if needed in the morning and at bedtime for constipation. 180 capsule 1 Active celecoxib (CeleBREX) 200 MG capsule Take 1 capsule by mouth 2 times daily. Active metFORMIN XR (Glucophage-XR) 500 MG 24 hr tabletIndications :Type 2 diabetes mellitus without complication, without long-term current use of insulin ([facility]) Take 1 tablet (500 mg) by mouth at noon and 1 tablet (500 mg) in the evening. Do not crush, chew, or split. 180 tablet Active omega-3 (Fish Oil) 1000 MG capsuleIndication s:Mixed hyperlipidemia Take 1 capsule (1,000 mg) by mouth 2 times daily. 180 capsule 1 Active cholecalciferol (Vitamin D-3) 50 MCG (1999 UT) capsule Take 1 capsule (50 mcg) by mouth Once per day. 90 capsule 3 025 2025 Active atorvastatin (Lipitor) 20 MG tablet TAKE 1 TABLET BY MOUTH AT BEDTIME 90 tablet 1 Active buprenorphine-nal oxone (Suboxone) 4-1 MG per sublingual filmIndications:O pioid dependence in remission (CMS/HCC) ([facility]) Place 1 Film under the tongue Once per day. Do not start before October 26, 2024. 28 Film 2 025 2024 Active Buprenorphine HCl-Naloxone HCl (Suboxone) 8-2 MG SL filmIndications:O pioid dependence in remission (CMS/HCC) ([facility]) Place 1 Film under the tongue 2 times daily. Do not start before October 26, 2024. 56 Film 2 025 2024 Active Aspirin Low Dose 81 MG EC tabletIndications :Routine health maintenance TAKE 1 TABLET BY MOUTH AT BEDTIME 90 tablet 1 Active Acetaminophen Extra Strength 500 MG tabletIndications :Acute pain of left knee TAKE 2 TABLETS BY MOUTH EVERY 8 HOURS NEEDED FOR PAIN 30 tablet 1 Active Diclofenac Sodium 1 % gelIndications:Ac heather pain of left knee APPLY 2 GRAMS TOPICALLY TO AFFECTED AREA(S) EVERY TWELVE HOURS NEEDED 100 g 1 Active Januvia 100 MG tablet TAKE 1 TABLET BY MOUTH EVERY MORNING 90 tablet 1 025 Active acetaminophen (Tylenol) 325 MG tabletIndications :Pain Take 1 tablet (325 mg) by mouth every 8 (eight) hours if needed for mild pain. 30 tablet 2 025 2024 Discontinued(O ther) Januvia 100 MG tablet TAKE 1 TABLET BY MOUTH EVERY MORNING 90 tablet 1 025 2024 Discontinued Diclofenac Sodium 1 % gelIndications:Ac heather pain of left knee APPLY 2 GRAMS TOPICALLY TO AFFECTED AREA(S) EVERY TWELVE HOURS NEEDED 100 g 1 025 2024 Discontinued Acetaminophen Extra Strength 500 MG tabletIndications :Acute pain of left knee TAKE 2 TABLETS BY MOUTH EVERY 8 HOURS NEEDED FOR PAIN 30 tablet 2 025 2024 Discontinued Active Problems Problem Noted Date Diagnosed Date Primary osteoarthritis of left knee 04/20/2024 History of hepatitis C virus infection 06/11/202 4 History of syphilis 08/02/2023 Routine adult health maintenance 08/11/2022 Assessment & Plan (08/11/2022 3:08 PM EDT): Patient denied getting a colonoscopy but will accept cologuard. Aortic valve stenosis 08/10/2022 Hepatic fibrosis 03/14/2019 Dysthymia 05/01/2012 History of substance abuse ([facility]) 11/09/2011 Posttraumatic stress disorder 08/03/2011 Obesity 06/23/2011 Benign hypertension 04/04/2011 Bipolar disorder 08/02/2010 Assessment & Plan (08/11/2022 3:06 PM EDT): Patient states his mood has been well controlled. Chronic type B viral hepatitis (CMS/HCC) 011 Diabetes mellitus type 2, uncomplicated 02/22/19 11 Assessment & Plan (08/11/2022 3:11 PM EDT): A1C: 7.8 Hypertriglyceridemia 02/22/2010 Encounters * This document contains information received from the source organization and may not represent a complete record from that organization. Date Type Department Care Team Description 12/13/2024 Refill [facility] [address] [place] [address] Tuyet Aguilar MD 12/09/2024 Refill [facility] [address] [place] [address] Tuyet Aguilar MD Acute pain of left knee 12/04/2024 Refill [facility] [address] [place] [address] Tuyet Aguilar MD Acute pain of left knee 11/30/2024 Refill [facility] [address] [place] [address] Tuyet Aguilar MD Routine health maintenance 11/29/2024 Refill [facility] [address] [place] [address] Tuyet Aguilar MD Routine health maintenance 10/26/2024 9:00 AM EDT Office Visit [facility] [address] [place] [address] Bj Hayes MD Opioid dependence in remission ([facility]) (Primary Dx) 10/26/2024 Travel 10/23/2024 Refill [facility] [address] [place] [address] Tuyet Aguilar MD Acute pain of left knee 10/23/2024 Refill [facility] [address] [place] [address] Merle Snider RN Opioid dependence in remission ([facility]/HCC) 10/21/2024 Refill [facility] [address] [place] [address] Rakel Ng MD 10/19/2024 Refill [facility] [address] [place] [address] Bj Hayes MD Opioid dependence in remission ([facility]) 10/15/[address] [address] Tuyet Aguilar MD Call Back Request 10/12/2024 Results Follow-Up [facility] [address] [place] [phone] Tuyet Aguilar MD Confirmatory Syphilis Profile 10/11/2024 1:15 PM EDT Office Visit [address] [address] Tuyet Aguilar MD Benign hypertension (Primary Dx); Other constipation; Type 2 diabetes mellitus without complication, without long-term current use of insulin ([facility]); Mixed hyperlipidemia; Class 1 obesity due to excess calories with serious comorbidity and body mass index (BMI) of 32.0 to 32.9 in adult; Routine adult health maintenance; Primary osteoarthritis of left knee 10/11/2024 Travel 10/10/2024 Telephone [facility] [address] [place] [address] Tuyet Aguilar MD chartprep 10/09/2024 Orders Only [facility] [address] [place] [phone] Tuyet Aguilar MD 10/09/2024 Results Follow-Up [facility] [address] [place] [address] Tuyet Aguilar MD Albumin, Random Urine W/Creatinine, CBC, Comprehensive Metabolic Panel, Additional followed-up results: 10/09/2024 Refill [facility] [address] [place] [address] Tuyet Aguilar MD Acute pain of left knee from Last 3 Months Immunizations Immunization Administration Dates Next Due Influenza, Split (incl. [...] Passive Smoke Exposure: Never Smokeless Tobacco: Never Tobacco Cessation:Counseling Given: [...] your housing situation today? I have anisa nadia 12/07/[address] you li [...] Sign Reading Time Taken Comments Blood Pressure 120/70 10/11/2024 2:09 PM EDT Pulse 76 10/11/2024 1:33 PM EDT Temperature 36.2 C (97.1 F) 10/11/2024 1:33 PM EDT Respiratory Rate 20 10/11/2024 1:33 PM EDT Oxygen Saturation 95% 10/11/2024 1:33 PM EDT Inhaled Oxygen Concentration - - Weight 85.9 kg (189 lb 6.4 oz) 10/11/2024 1:33 P M EDT Height 170.2 cm (5' 7 ) 10/11/2024 1:33 PM EDT Body Mass Index 29.66 10/11/2024 1:33 PM EDT Plan of Treatment Upcoming Encounters Date Type Department Care Team (Late st Contact Info) Description 01/11/2025 9:30 AM EST Office Visit [facility] [address] [place] [phone] Bj Hayes MD [address] [place] [phone] 03/15/2025 1:00 PM EST Office Visit [facility] [address] [place] [address] Tuyet Aguilar MD [address] [place] [phone] Health Maintenance Due Date Last Done Comments [...] Zoster Vaccines (2 of 2) 09/29/2023 08/04/2023 Dental Prophylaxis 04/05/2024 10/03/2023 COVID-19 Vaccine (2 - season) 2024 06/29/2023 Influenza Vaccine (#1) 2024 11/09/2011 Diabetes: Hemoglobin A1C 01/09/2025 025, 08/06/2024, 01/02/2024, Additional history exists Depression Screening 04/13/2025 04/13/2024, 04/13/19 25 Disability Screening 08/06/2025 08/06/2024 Diabetes: Urine Protein Screening 10/09/2025 10/09/2024, 01/02/2024, 08/02/2023, Additional history exists Lipid Panel 10/09/2025 10/09/2024, 12/22, 07/28/2023, Additional history exists Alcohol/Substance Use Screening 10/11/2025 10/11/2024 SDOH Screening 10/11/2025 10/11/2024 Tobacco Screening 10/11/2025 10/11/2024 Eye Exam 05/18/2026 05/18/2024, 04/22, 05/18/2024, Additional history exists DTaP/Tdap/Td Vaccines (3 - Td or Tdap) 06/28/2033 06/29/2023, 11/09/2011 Pneumococcal Vaccine: 50+ Years Completed 06/29/2023, 12/01/2010 RSV Patients and Patients Aged 60 years or older Completed 08/04/2023 HIV Screening Completed 10/09/2024, 0607/2023, 03/17/2023, Additional history exists HIB Vaccines Aged Out No longer eligi ble based on patient's age to complete this topic HPV Vaccines Aged Out No longer eligi ble based on patient's age to complete this topic IPV Vaccines Aged Out No longer eligi ble based on patient's age to complete this topic Meningococcal B Vaccine Aged Out No l onger eligible based on patient's age to complete this topic Meningococcal Vaccine Aged Out No karen kory eligible based on patient's age to complete this topic RSV under 20 months Aged Out No longe r eligible based on patient's age to complete this topic Rotavirus Vaccines Aged Out No longer eligible based on patient's age to complete this topic Goals Goal Patient Goal Type Associated Problems Recent Progress Patient-Stated? Author Increase coping skills to promote long-term recovery and improve ability to perform daily activities General No Merle Snider RN Procedures Procedure Name Priority Date/Time Associated Diagnosis Comments CONFIRMATORY SYPHILIS PROFILE Routine 10/09/2024 9:23 AM EDT FERRITIN Routine 10/09/2024 9:23 AM EDT Health care maintenance IRON AND TOTAL IRON BINDING CAPACITY Routine 10/09/2024 9:23 AM EDT Health care maintenance PSA, TOTAL Routine 10/09/2024 9:23 AM EDT Health care maintenance VITAMIN D,25-OH,TOTAL,IA Routine 10/09/2024 9:23 AM EDT Health care maintenance TSH W/REFLEX TO FT4 Routine 10/09/2024 9 :23 AM EDT Health care maintenance SYPHILIS SCREEN Routine 10/09/2024 9:23 AM EDT Health care maintenance LIPID PANEL, STANDARD Routine 10/09/2024 9:23 AM EDT Health care maintenance HIV 1/2 ANTIGEN/ANTIBODY, FOURTH GENERATION W/RFL Routine 10/09/2024 9:23 AM EDT Health care maintenance HEPATITIS C AB W/REFL TO HCV RNA, QN, PCR Routine 10/09/2024 9:23 AM EDT Health care maintenance HEPATITIS B SURFACE ANTIGEN, EIA Routine 10/09/2024 9:23 AM EDT Health care maintenance HEPATITIS B SURFACE ANTIBODY, QUALITATIVE Routine 10/09/2024 9:23 AM EDT Health care maintenance HEPATITIS B CORE AB TOTAL Routine 10/09/2024 9:23 AM EDT Health care maintenance HEMOGLOBIN A1C Routine 10/09/2024 9:23 AM EDT Health care maintenance COMPREHENSIVE METABOLIC PANEL Routine 10/09/2024 9:23 AM EDT Health care maintenance CBC Routine 10/09/2024 9:23 AM EDT Health care maintenance ALBUMIN, RANDOM URINE W/CREATININE Routine 10/09/2024 9:23 AM EDT Health care maintenance PROPHYLAXIS - ADULT Routine 10/03/2023 1 :00 PM EDT PERIODIC ORAL EVALUATION - ESTABLISHED PATIENT Routine 02/18/2023 1:30 PM EST INTRAORAL - COMPLETE SERIES OF RADIOGRAPHIC IMAGES Routine 05/05/2015 12:00 AM EDT from Last 3 Months or Most Recently Relevant to Health Maintenance Results * (ABNORMAL) Confirmatory Syphilis Profile (10/09/2024 9:23 AM EDT) Rapid Plasma Reagin, Quant Reactive 1:2(A) Nonreactive [facility] Treponema pallidum Antibody, Particle Agglutination Reactive(A) Nonreactive [facility] Comment:Testing performed at : [address] [address] 10/09/2024 9:23 AM EDT 10/09/2024 11:59 AM EDT Tuyet Mckinney MD LAB BLOOD ORDERAB LES Final Result Performing Organization Address [facility]/ZIP Co de Phone Number [facility] [address] [place] [phone] * (ABNORMAL) Syphilis Screen (10/09/2024 9:23 AM EDT) Syphilis Screen Reactive( A) Nonreactive [facility] Comment:Reactive specimens a re sent to the [facility] Labfor confirmatory tests. Blood 10/09/2024 9:23 AM EDT 10/09/2024 10:58 AM EDT Tuyet Mckinney MD LAB BLOOD ORDERAB LES Final Result Performing Organization Address [facility] Co de Phone Number [facility] [address] [place] [phone] * Vitamin D, 25-Hydroxy, Total, Immunoassay (10/09/2024 9:23 AM EDT) Vitamin D 25-OH Total 97.7 >30 ng/mL [facility] Comment: Health Based Reference Values*< 20 ng/mL Whvzyapub73-46 ng/mL Insufficient> 30 ng/mL Sufficient*Ajith GALLARDO. N Engl J Med. 2007;357:266-280There is no well-established upper level of normal vitamin Dlevels. Some laboratories use 50 ng/mL as an upper limit ofnormal. However, toxicity is patient-dependent and may occurat any level. Careful correlation with the patient'spresentation is necessary and, if there is concern forvitamin D toxicity, treatment should be consideredirrespective of the serum level.Care must be taken in interpreting Vitamin D results fromdifferent laboratories and methodologies. Published datademonstrated that results from patients undergoinghemodialysis may show a negative bias when tested withvarious automated 25-OH vitamin D assays when compared toLC-MS/MS.When testing samples from patients whose predominant form ofVitamin D is Vitamin D2, such as patients receiving VitaminD2 supplementation, results that are subtherapeutic shouldbe confirmed with another method such as LC-MS/MS. Blood Venous blood specimen / Unknown 10/09/2024 9:23 AM EDT 10/09/2024 10:58 AM EDT us Tuyet Mckinney MD LAB BLOOD ORDERAB LES Final Result Performing Organization Address City/[facility]/ZIP Co de Phone Number [facility] [address] [place] [phone] * TSH with Reflex to Free T4 (10/09/2024 9:23 AM EDT) TSH reflex Free T4 1.34 0.32 - 4.0 uIU/mL [facility] Blood 10/09/2024 9:23 AM EDT 10/09/2024 10:58 AM EDT us Tuyet Mckinney MD LAB BLOOD ORDERAB LES Final Result Performing Organization Address City/[facility] Co de Phone Number [facility] [address] [place] [phone] * Albumin, Random Urine W/Creatinine (10/09/2024 9:23 AM EDT) Creatinine, Urine 60.02 mg/dL [facility] Microalbumin Urine 6.0 mg/L [facility] Microalbum Creatinine Ratio Ur 9.9 <30 ug/mg cr [facility] Comment:Albumin/Creatinine R atio Reference Ranges: Normal: < 30 ug/mg creatinine Microalbuminuria: 30 - 300 ug/mg creatinineClinical Albuminuria: > 300 ug/mg creatinine Urine (Urine, Random) 10/09/2024 9:23 AM EDT 10/09/2024 11:01 AM EDT us Tuyet Mckinney MD LAB URINE ORDERAB LES Final Result Performing Organization Address [facility] Co de Phone Number [facility] [address] [place] [phone] * Hepatitis C Antibody with Reflex to HCV, RNA, Quantitative, Real-Time PCR (10/09/2024 9:23 AM EDT) Pathologist [facility] Hepatitis C Antibody Nonreactive Nonreactive [facility] Comment:Antibodies to HCV no t detected; does not exclude early acuteHCV infection. Blood Venous blood specimen / Unknown 10/09/2024 9:23 AM EDT 10/09/2024 10:58 AM EDT us Tuyet Mckinney MD LAB BLOOD ORDERAB LES Final Result Performing Organization Address [facility] Co de Phone Number [facility] [address] [place] [phone] * Iron And Total Iron Binding Capacity (10/09/2024 9:23 AM EDT) [facility] Iron 104 45 - 160 mcg/dL [facility] Total Iron Binding Capacity 300 228 - 428 mcg/dL [facility] Percent Iron Saturation 35 15 - 50 % [facility] Unsaturated Iron Binding 196 ug/dL [facility] Blood Venous blood specimen / Unknown 10/09/2024 9:23 AM EDT 10/09/2024 10:58 AM EDT us Tuyet Mckinney MD LAB BLOOD ORDERAB LES Final Result Performing Organization Address [facility] Co de Phone Number [facility] [address] [place] [phone] * Hepatitis B surface antigen, EIA (10/09/2024 9:23 AM EDT) Pathologist [facility] Hepatitis B Surface Ag Negative Negative [facility] Blood Venous blood specimen / Unknown 10/09/2024 9:23 AM EDT 10/09/2024 10:58 AM EDT us Tuyet Mckinney MD LAB BLOOD ORDERAB LES Final Result Performing Organization Address City/[facility]/ZIP Co de Phone Number [facility] [address] [place] [phone] * Hepatitis B Core Antibody, Total (10/09/2024 9:23 AM EDT) Hepatitis B Core Antibody Reactive Nonreactive [facility] Comment:Presumptive evidence of anti-HBc. Blood Venous blood specimen / Unknown 10/09/2024 9:23 AM EDT 10/09/2024 10:58 AM EDT us Tuyet Mckinney MD LAB BLOOD ORDERAB LES Final Result Performing Organization Address [facility] Co de Phone Number [facility] [address] [place] [phone] * HIV-1/2 Antigen and Antibodies, Fourth Generation, with Reflexes (10/09/2024 9:23 AM EDT) HIV AB/AG Nonreactive Nonreactive [facility] Comment:HIV-1 p24 Ag and/or HIV-1/HIV-2 Ab not detected.A test result that is nonreactive does not exclude thepossibility of exposure to or infection with HIV-1 and/orHIV-2. Nonreactive results in this assay for individualswith prior exposure to HIV-1 and/or HIV-2 may be due toantigen and antibody levels that are below the limit ofdetection of this assay.The Mobile[employer] (fka [employer]) HIV Ag/Ab Combo assay result andsupplemental assay results should be interpreted inconjunction with the patient's clinical presentation,history and other laboratory results. If the results areinconsistent with clinical evidence, additional testing issuggested to confirm the result. Blood Venous blood specimen / Unknown 10/09/2024 9:23 AM EDT 10/09/2024 10:58 AM EDT us Tuyet Mckinney MD LAB BLOOD ORDERAB LES Final Result Performing Organization Address [facility] Co de Phone Number [facility] [address] [place] [phone] * Hepatitis B Surface Antibody, Qualitative (10/09/2024 9:23 AM EDT) [facility] ~Hepatitis B Surface Antibody REACTIVE Nonreactive [facility] Comment:REACTIVE: > 11.99 mI U/mL Blood Venous blood specimen / Unknown 10/09/2024 9:23 AM EDT 10/09/2024 10:58 AM EDT us Tuyet Mckinney MD LAB BLOOD ORDERAB LES Final Result Performing Organization Address [facility] de Phone Number [facility] [address] [place] [phone] * (ABNORMAL) CBC (10/09/2024 9:23 AM EDT) [facility] White Blood Count 8.7 4.8 - 10.8 X10*3/uL [facility] Red Blood Count 4.56(L) 4.60 - 5.80 X10*6/uL [facility] Hemoglobin 13.9(L) 14.0 - 18.0 g/dl [facility] Hematocrit 41.2(L) 42.0 - 52.0 % [facility] Mean Corpuscular Volume 90.4 80.0 - 98.0 fL [facility] Mean Corpuscular Hemoglobin 30.5 27.0 - 33.0 pg [facility] Mean Corpuscular HGB Conc 33.7 31.0 - 36.0 g/dl [facility] Red Cell Distribution Width 14.1 11.0 - 16.0 % [facility] Platelet Count 228 160 - 400 X10*3/uL [facility] Mean Platelet Volume 12.6(H) 9.4 - 12.4 fL [facility] NRBC Pct Auto 0.0 0.0 - 0.2 /100WBC [facility] NRBC Abs Auto 0.000 0.0 - 0.012 X10*3/uL [facility] Blood Venous blood specimen / Unknown 10/09/2024 9:23 AM EDT 10/09/2024 10:58 AM EDT us Tuyet Mckinney MD LAB BLOOD ORDERAB LES Final Result [facility] [address] [place] [phone] * PSA,Total (10/09/2024 9:23 AM EDT) Prostate Specific Antigen 0.23 <0.05 - 4.0 ng/mL [facility] Comment:PSA methodology: Jeffry Last i ChemiluminescentMicroparticle Immunoassay (CMIA) Blood Venous blood specimen / Unknown 10/09/2024 9:23 AM EDT 10/09/2024 10:58 AM EDT us Tuyet Mckinney MD LAB BLOOD ORDERAB LES Final Result Performing Organization Address City/[facility]/ZIP Co de Phone Number [facility] [address] [place] [phone] * (ABNORMAL) Hemoglobin A1c (10/09/2024 9:23 AM EDT) Hemoglobin A1c 7.1(H) <6.0 % [facility] Comment:Hemoglobin A1C Refer ence Range Adults: 4.8 - 6.0 % Non diabetic: < 6.0 % Goal: < 7.0 %Additional Action Suggested: > 8.0 %Note: Hemoglobin A1c results are invalid for patients with abnormal amounts of HbF. Blood transfusions may impact the HbA1c concentration in the patient sample. Estimated Average Glucose 157 mg/dL [facility] Comment:eAG = Estimated ave rage glucose which is %A1C expressed asaverage glucose, using the formula of the Q3R-WflfatsButipro Glucose study (ADAG), Diabetes Care, Vol.31,#8,Sep. 2007 Blood Venous blood specimen / Unknown 10/09/2024 9:23 AM EDT 10/09/2024 10:58 AM EDT us Tuyet Mckinney MD LAB BLOOD ORDERAB LES Final Result [facility] [address] [place] [address] [phone] * Ferritin (10/09/2024 9:23 AM EDT) Pathologist [facility] Ferritin 189 20 - 250 ng/mL [facility] Blood Venous blood specimen / Unknown 10/09/2024 9:23 AM EDT 10/09/2024 10:58 AM EDT us Tuyet Mckinney MD LAB BLOOD ORDERAB LES Final Result Performing Organization Address City/[facility]/ZIP Co de Phone Number [facility] [address] [place] [phone] * (ABNORMAL) Lipid Panel, Standard (10/09/2024 9:23 AM EDT) Triglycerides 224(H) <150 mg/dL [facility] Comment:Desirable Triglyceri de: less than 150 mg/dLBorderline High Triglyceride 150-199 mg/dLHigh Triglyceride: 200-499 mg/dLVery High Triglyceride: greater than or equal to 5OO mg/dL Cholesterol 195 <200 mg/dL [facility] Comment:Desirable Cholestero l: less than 200 mg/dLBorderline High Cholesterol: 200-239 mg/dLHigh Cholesterol: greater than 239 mg/dL LDL Cholesterol Calculated 93 <100 mg/dL [facility] Comment:Desirable LDL: less than 100 mg/dLNear Optimal/Above Optimal LDL: 110- 129 mg/dLBorderline High LDL: 130-159 mg/dLHigh LDL: 160-189 mg/dLVery High LDL: greater than or equal to 190 mg/dL HDL Cholesterol 58 >40 mg/dL [facility] Comment:Desirable HDL: great er than 40 mg/dL Note: This HDL assay may give artificially low results in patients with liver disease. Blood Venous blood specimen / Unknown 10/09/2024 9:23 AM EDT 10/09/2024 10:58 AM EDT us Tuyet Mckinney MD LAB BLOOD ORDERAB LES Final Result [facility] [address] [place] [address] [phone] * (ABNORMAL) Comprehensive Metabolic Panel (10/09/2024 9:23 AM EDT) Sodium 136 135 - 145 mmol/L [facility] Potassium 3.7 3.3 - 5.1 mmol/L [facility] Chloride 99 96 - 108 mmol/L [facility] Carbon Dioxide 28 22 - 29 mmol/L [facility] Anion Gap 13 12 - 20 [facility] Urea Nitrogen (BUN) 14 9 - 16 mg/dL [facility] Creatinine, Serum 0.76 0.5 - 1.4 mg/dL [facility] Estimated Glomerular Filt Rate >60 [facility] Comment:Chronic Kidney Disea se: Estimated GFR < 60 mL/min/1.02f5Rapynq Kidney Disease: Estimated GFR < 15 mL/min/1.73m2 Glucose 136(H) 60 - 115 mg/dL [facility] Calcium 9.4 8.4 - 10.2 mg/dL [facility] Bilirubin, Total 0.3 0.0 - 1.0 mg/dL [facility] Aspartate Amino Transferase 40(H) 5 - 37 U/L [facility] Alanine Aminotransferase 52(H) 0 - 40 U/L [facility] Total Protein 8.3(H) 6.5 - 8.0 g/dL [facility] Albumin Level 4.6 3.5 - 5.0 g/dL [facility] Alkaline Phosphatase 111 39 - 117 U/L [facility] Blood Venous blood specimen / Unknown 10/09/2024 9:23 AM EDT 10/09/2024 10:58 AM EDT Tuyet Mckinney MD LAB BLOOD ORDERAB LES Final Result [facility] [address] [place] [address] [phone] from Last 3 Months Insurance [facility] < [address] [facility] Care Teams [id number] Armor Crewman Relationship Specialty Start Date End Date Tuyet Aguilar MD [address] [place] [phone] PCP - General Internal Medicine 11/11/22
--- OUTSIDE RECORDS SUMMARY | 2025-01-02 18:15 | XMS_ITS | Encounter Summary ---
Author Organization [employer] Address 75 [facility] 7t [place] [address] Care Team Providers Care Seo Strategist Name Role Phone Tuyet Agiular MD Primary Care Pro vider Reason for Visit * Reason Comments Med Refill Encounter Details Date Type Department Care Team ([facility] st Contact Info) Description 07/19/2023 Refill [facility] MED[facility]INE [address] [place] [address] Tuyet Aguilar MD 230 [place] [address] Pain Social History Tobacco Use Types Packs/Day [...] Description 01/11/2025 9:30 AM EST Office Visit [facility] [address] [place] [address] Bj Hayes MD [address] [place] [address] 03/15/2025 1:00 PM EST Office Visit [facility] [address] [place] [address] Tuyet Aguilar MD [address] [place] [address] [phone] documented as of this encounter Visit Diagnoses Diagnosis Pain Generalized pain documented in this encounter Additional Health Concerns Assessment Noted Time PHQ-9 Depression Total Score: 0 06/29/19 24 2:13 PM EDT documented as of this encounter Care Teams Seo Strategist Relationship Specialty Start Date End Date Tuyet Augilar MD [address] [place] [phone] PCP - General Internal Medicine 11/11/22 documented as of this encounter
--- OUTSIDE RECORDS SUMMARY | 2025-01-02 18:15 | XMS_ITS | Encounter Summary ---
Author Organization [employer] Address [address] [employer] [employer] [facility] [employer] 7t [place] [address] Care Team Providers Care Engineering Tech Name Role Phone Tuyet Aguilar MD Primary Care Pro vider Reason for Visit * Reason Comments Med Refill Encounter Details Date Type Department Care Team ([facility] st Contact Info) Description 10/19/2024 Refill [facility] [address] [place] [address] Bj Hayes MD [address] [place], [place] [phone] Opioid dependence in remission (CMS/[facility]) Social History Tobacco [...] Description 01/11/2025 9:30 AM EST Office Visit [address] [address] Bj Hayes MD [address] [place] [address] 03/15/2025 1:00 PM EST Office Visit [address] [address] Tuyet Aguilar MD [address] [place] [address] documented as of this encounter Goals Goal Patient Goal Type Associated Problems Recent Progress Patient-Stated? Author Increase coping skills to promote long-term recovery and improve ability to perform daily activities General Merle Harding, RN documented as of this encounter Visit Diagnoses Diagnosis Opioid dependence in remission (CMS/HCC) (HCC) Opioid type dependence, in remission documented in this encounter Additional Health Concerns Assessment Noted Time PHQ-9 Depression Total Score: 0 04/13/19 25 10:40 AM EST documented as of this encounter Care Teams Engineering Tech Relationship Specialty Start Date End Date Tuyet Aguilar MD [address] [place] [phone] PCP - General Internal Medicine 11/11/22 documented as of this encounter
--- OUTSIDE RECORDS SUMMARY | 2025-01-02 18:15 | XMS_ITS | Encounter Summary ---
Author Organization [employer] Address [address] [facility] 7t [place] [address] Care Team Providers Care Precision Grinder Name Role Phone Tuyet Aguilar MD Primary Care Pro vider Reason for Visit * Reason Comments Med Refill Encounter Details Date Type Department Care Team ([facility] st Contact Info) Description 07/06/2024 Refill [facility] [address] [place] [address] Tuyet Aguilar MD 230 [place] [address] Acute pain of left knee Social History Tobacco Use Types Packs/Day Years [...] Description 01/11/2025 9:30 AM EST Office Visit [address] [address] Bj Hayes MD [address] [place] [address] 03/15/2025 1:00 PM EST Office Visit [address] [address] Tyuet Aguilar MD [address] [place] [phone] documented as of this encounter Goals Goal Patient Goal Type Associated Problems Recent Progress Patient-Stated? Author Increase coping skills to promote long-term recovery and improve ability to perform daily activities General Merle Harding, SHELDON documented as of this encounter Visit Diagnoses Diagnosis Acute pain of left knee documented in this encounter Additional Health Concerns Assessment Noted Time PHQ-9 Depression Total Score: 0 04/13/19 25 10:40 AM EST documented as of this encounter Care Teams Precision Grinder Relationship Specialty Start Date End Date Tueyt Aguilar MD [address] [place] [phone] PCP - General Internal Medicine 11/11/22 documented as of this encounter
--- OUTSIDE RECORDS SUMMARY | 2025-01-02 18:15 | XMS_ITS | Encounter Summary ---
Author Organization [employer] Address 75 [facility] 7t [place] [address] Care Team Providers Care [employer] Humanities Teacher Name Role Phone Tuyet Aguilar MD Primary Care Pro vider Reason for Visit * Reason Comments Med Refill Encounter Details Date Type Department Care Team ([facility] st Contact Info) Description 07/22/2023 Refill [facility] 230 [place] [address] Tuyet Aguilar MD 230 [place] [address] Pain Social History Tobacco Use Types Packs/Day [...] Description 01/11/2025 9:30 AM EST Office Visit [facility] MED[facility]INE [address] [place] [address] Bj Hayes MD [address] [place] [address] 03/15/2025 1:00 PM EST Office Visit [facility] [address] [place] [address] Tuyet Aguilar MD [address] [place] [address] [phone] documented as of this encounter Visit Diagnoses Diagnosis Pain Generalized pain documented in this encounter Additional Health Concerns Assessment Noted Time PHQ-9 Depression Total Score: 0 06/29/19 24 2:13 PM EDT documented as of this encounter Care Teams [employer] Humanities Teacher Relationship Specialty Start Date End Date Tuyet Aguilar MD [address] [place] [address] PCP - General Internal Medicine 11/11/22 documented as of this encounter
--- OUTSIDE RECORDS SUMMARY | 2025-01-02 18:15 | XMS_ITS | Encounter Summary ---
Author Organization [email or web address] Address 75 [facility] 7t [place] [address] Care Team Providers Care Crnp Name Role Phone Tuyet Aguilar MD Primary Care Pro vider Reason for Visit * Reason Comments Med Refill Encounter Details Date Type Department Care Team ([facility] st Contact Info) Description 06/21/[address] [facility] MEDICINE [address] [place] [address] Tuyet Aguilar MD 230 [place] [address] Pain Social History Tobacco Use Types Packs/Day [...] AM EST Office Visit [facility] MED[facility]INE [address] [place] [address] Bj Hayes MD [address] [place] [address] 03/15/2025 1:00 PM EST Office Visit [facility] MED[facility]INE [address] [place] [address] Tuyet Aguilar MD [address] [place] [address] documented as of this encounter Visit Diagnoses Diagnosis Pain Generalized pain documented in this encounter Additional Health Concerns Assessment Noted Time PHQ-9 Depression Total Score: 0 08/12/19 2:31 PM EDT documented as of this encounter Care Teams Crnp Relationship Specialty Start Date End Date Tuyet Aguilar MD [address] [place] [phone] PCP - General Internal Medicine 11/11/22 documented as of this encounter
--- OUTSIDE RECORDS SUMMARY | 2025-01-02 18:15 | XMS_ITS | Encounter Summary ---
Author Organization [employer] Address 75 [facility] 7t [place] [address] Care Team Providers Care Project Consultant Name Role Phone Tuyet Aguilar MD Primary Care Pro vider Reason for Visit * Reason Comments Med Refill Encounter Details Date Type Department Care Team (Late st Contact Info) Description 04/25/2024 Refill [facility] 230 [place] [address] Tuyet Sanchez MD [address] [place] [address] Acute pain of left knee Social History [...] Office Visit [facility] MED[facility]INE [address] [place] [address] Bj Hayes MD [address] [place] [address] 03/15/2025 1:00 PM EST Office Visit [facility] [address] [place] [address] Tuyet Aguilar MD [address] [place] [address] documented as of this encounter Visit Diagnoses Diagnosis Acute pain of left knee documented in this encounter Additional Health Concerns Assessment Noted Time PHQ-9 Depression Total Score: 0 04/13/19 25 10:40 AM EST documented as of this encounter Care Teams Project Consultant Relationship Specialty Start Date End Date Tuyet Aguilar MD [address] [place] [address] PCP - General Internal Medicine 11/11/22 documented as of this encounter
--- OUTSIDE RECORDS SUMMARY | 2025-01-02 18:15 | XMS_ITS | Encounter Summary ---
Author Organization [employer] Address 75 [facility] 7t [place] [address] Care Team Providers Care Striker Out Name Role Phone Tuyet Aguilar MD Primary Care Pro vider Reason for Visit * Reason Comments Med Refill Encounter Details Date Type Department Care Team ([facility] st Contact Info) Description 03/11/2023 Refill [facility] MEDICINE 230 [place] [address] Bj Hayes MD 230 [place], [place] [phone] Uncomplicated opioid dependence (CMS/HCC) Social History Tobacco [...] t he electric, gas, oil or water [employer] threatened to shut off services in your [...] Description 01/11/2025 9:30 AM EST Office Visit [facility] MEDICINE [address] [place] [address] Bj Hayes MD [address] [place] [address] 03/15/2025 1:00 PM EST Office Visit [facility] MEDICINE [address] [place] [address] Tuyet Aguilar MD [address] [place] [address] documented as of this encounter Visit Diagnoses Diagnosis Uncomplicated opioid dependence (CMS/HCC) (HCC) documented in this encounter Additional Health Concerns Assessment Noted Time PHQ-9 Depression Total Score: 0 08/12/19 2:31 PM EDT documented as of this encounter Care Teams Striker Out Relationship Specialty Start Date End Date Tuyet Aguilar MD [address] [place] [phone] PCP - General Internal Medicine 11/11/22 documented as of this encounter
--- OUTSIDE RECORDS SUMMARY | 2025-01-02 18:15 | XMS_ITS | Encounter Summary ---
Author Organization [employer] Address 75 [facility] 7t [place] [address] Care Team Providers Care Software Support Specialist Name Role Phone Tuyet Aguilar MD Primary Care Pro vider Reason for Visit * Reason Comments Med Refill Encounter Details Date Type Department Care Team ([facility] st Contact Info) Description 01/09/2023 Refill [facility] 230 [place] [address] Tuyet Aguilar MD 230 [place] [address] Pain Social History Tobacco Use Types Packs/Day [...] 9:30 AM EST Office Visit [facility] [address] [place] [address] Bj Hayes MD [address] [place] [address] 03/15/2025 1:00 PM EST Office Visit [address] [address] Tuyet Aguilar MD [address] [place] [address] documented as of this encounter Visit Diagnoses Diagnosis Pain Generalized pain documented in this encounter Additional Health Concerns Assessment Noted Time PHQ-9 Depression Total Score: 0 08/12/19 23 2:31 PM EDT documented as of this encounter Care Teams Software Support Specialist Relationship Specialty Start Date End Date Tuyet Aguilar MD [address] [place] [address] PCP - General Internal Medicine 11/11/22 documented as of this encounter
--- OUTSIDE RECORDS SUMMARY | 2025-01-02 18:15 | XMS_ITS | Encounter Summary ---
Author Organization [employer] Address [address] [place] [address] 7t [place] [address] Care Team Providers Care Kettle Girl Name Role Phone Amanda Pearson JOVITA Primary Care Provider [phone] Ghulam Krueger Primary Care Provider Zulema Nj Primary Care Provider [phone] Tuyet Aguilar MD Primary Care Pro vider Encounter Details Date Type Department Care Team (Late st Contact Info) Description 04/02/2022 Orders Only [facility] MED & PEDS [address] [place], [place] [phone] Cherelle Gaitan LPN Social History Tobacco Use [...] Description 01/11/2025 9:30 AM EST Office Visit [address] [phone] Bj Hayes MD [address] [place] [address] [phone] 03/15/2025 1:00 PM EST Office Visit [facility] MEDICINE [address] [place] [address] [phone] Tuyet Aguilar MD [address] [place] [address] [phone] documented as of this encounter Visit Diagnoses Not on filedocumented in this encounter Care Teams Kettle Girl Relationship Specialty Start Date End Date Amanda Pearson FNP [address] [place] [address] PCP - General Family Medicine 10/15/21 07/22/22 Ghulam Krueger AGNP [address] [place] [address] PCP - General Family Medicine 07/23/22 10/31/22 Zulema Khan ANP [address] [place] [address] PCP - General Family Medicine 11/01/22 11/10/22 Tuyet Aguilar MD [address] [place] [phone] PCP - General Internal Medicine 11/11/22 documented as of this encounter
--- OUTSIDE RECORDS SUMMARY | 2025-01-02 18:15 | XMS_ITS | Encounter Summary ---
Author Organization [employer] Address 75 [facility] 7t [place] [address] Care Team Providers Care Customer Service Assistant Name Role Phone Tuyet Aguilar MD Primary Care Pro vider Reason for Visit * Reason Comments Med Refill Encounter Details Date Type Department Care Team ([facility] st Contact Info) Description 04/04/2024 Refill [facility] 230 [place], [place] [phone] Cherelle Nieves DO 230 [place], [place] [phone] Social History Tobacco Use Types Packs/Day Years [...] Description 01/11/2025 9:30 AM EST Office Visit [facility] MEDICINE [address] [place] [address] Bj Hayes MD [address] [place] [address] 03/15/2025 1:00 PM EST Office Visit [facility] MED[facility]INE [address] [place] [address] Tuyet Aguilar MD [address] [place] [address] documented as of this encounter Visit Diagnoses Not on filedocumented in this encounter Additional Health Concerns Assessment Noted Time PHQ-9 Depression Total Score: 0 06/29/19 24 2:13 PM EDT documented as of this encounter Care Teams Customer Service Assistant Relationship Specialty Start Date End Date Tuyet Aguilar MD [address] [place] [address] PCP - General Internal Medicine 11/11/22 documented as of this encounter
--- OUTSIDE RECORDS SUMMARY | 2025-01-02 18:15 | XMS_ITS | Encounter Summary ---
Author Organization [employer] Address 75 [facility] 7t [place] [address] Care Team Providers Care Breast Trimmer Name Role Phone Tuyet Aguilar MD Primary Care Pro vider Reason for Visit * Reason Comments Med Refill Encounter Details Date Type Department Care Team ([facility] Contact Info) Description 12/16/2023 Refill [facility] MEDICINE [address] [place] [address] Bj Hayes MD 230 [place], [place] [phone] Uncomplicated opioid dependence (CMS/[facility]) Social History Tobacco Use Types Packs/Day Years [...] Description 01/11/2025 9:30 AM EST Office Visit [facility] MEDICINE [address] [place] [address] Bj Hayes MD [address] [place] [address] [phone] 03/15/2025 1:00 PM EST Office Visit [facility] MEDICINE [address] [place] [address] Tuyet Aguilar MD [address] [place] [address] [phone] documented as of this encounter Visit Diagnoses Diagnosis Uncomplicated opioid dependence (CMS/HCC) (HCC) documented in this encounter Additional Health Concerns Assessment Noted Time PHQ-9 Depression Total Score: 0 06/29/19 24 2:13 PM EDT documented as of this encounter Care Teams Breast Trimmer Relationship Specialty Start Date End Date Tuyet Aguilar MD [address] [place] [address] [phone] PCP - General Internal Medicine 11/11/22 documented as of this encounter
--- OUTSIDE RECORDS SUMMARY | 2025-01-02 18:15 | XMS_ITS | Encounter Summary ---
Author Organization [employer] Address [address] [place] [address] 7t [place] [address] Care Team Providers Care Nutrition Services Worker Name Role Phone Tuyet Aguilar MD Primary Care Pro vider Reason for Visit * Reason Comments Med Refill Encounter Details Date Type Department Care Team (Late st Contact Info) Description 11/19/2022 Refill [facility] MEDICINE [address] [place] [address] [phone] Bj Hayes MD [address] [place] [address] [phone] Uncomplicated opioid dependence (CMS/[facility]) Social History Tobacco Use Types [...] Description 01/11/2025 9:30 AM EST Office Visit [facility] MEDICINE [address] [place] [address] [phone] Bj Hayes MD [address] [place] [address] [phone] 03/15/2025 1:00 PM EST Office Visit [facility] MEDICINE 230 [place] [address] Tuyet Aguilar MD 230 [place], [place] [phone] documented as of this encounter Visit Diagnoses Diagnosis Uncomplicated opioid dependence (CMS/HCC) (HCC) documented in this encounter Additional Health Concerns Assessment Noted Time PHQ-9 Depression Total Score: 0 08/12/19 2:31 PM EDT documented as of this encounter Care Teams Nutrition Services Worker Relationship Specialty Start Date End Date Tuyet Aguilar MD [address] [place] [address] PCP - General Internal Medicine 11/11/22 documented as of this encounter
--- OUTSIDE RECORDS SUMMARY | 2025-01-02 18:15 | XMS_ITS | Encounter Summary ---
Author Organization [employer] Address 75 [facility] 7t [place] [address] Care Team Providers Care Leaf Sorter Name Role Phone Amanda Pearson JOVITA Primary Care Provider [phone] Ghulam Krueger Primary Care Provider Zulema Nj Primary Care Provider [phone] Tuyet Aguilar MD Primary Care Pro vider Encounter Details Date Type Department Care Team (Late st Contact Info) Description 04/19/2022 Orders Only [facility] MED & PEDS [address] [place], [place] [phone] Cherelle Gaitan LPN Social History Tobacco Use [...] Description 01/11/2025 9:30 AM EST Office Visit [facility] MEDICINE [address] [place] [address] [phone] Bj Hayes MD [address] [place] [address] [phone] 03/15/2025 1:00 PM EST Office Visit [facility] MEDICINE 230 [place] [address] Tuyet Aguilar MD 230 [place] [address] documented as of this encounter Visit Diagnoses Not on filedocumented in this encounter Care Teams Leaf Sorter Relationship Specialty Start Date End Date Amanda Pearson FNP [address] [place] [address] PCP - General Family Medicine 10/15/21 07/22/22 Ghulam Krueger AGNP [address] [place] [address] PCP - General Family Medicine 07/23/22 10/31/22 Zulema Khan ANP [address] [place] [phone] PCP - General Family Medicine 11/01/22 11/10/22 Tuyet Aguilar MD [address] [place] [phone] PCP - General Internal Medicine 11/11/22 documented as of this encounter
--- OUTSIDE RECORDS SUMMARY | 2025-01-02 18:16 | XMS_ITS | Encounter Summary ---
Author Organization [employer] Address 75 [facility] 7t [place] [address] Care Team Providers Care Low Vision Therapist Name Role Phone Tuyet Aguilar MD Primary Care Pro vider Reason for Visit * Reason Comments Med Refill Encounter Details Date Type Department Care Team ([facility] st Contact Info) Description 03/18/2023 Refill [facility] 230 [place] [address] Tuyet Aguilar MD 230 [place], [place] [phone] Pain Social History Tobacco Use Types Packs/Day [...] Description 01/11/2025 9:30 AM EST Office Visit [facility] [address] [place] [phone] Bj Hayes MD [address] [place] [address] 03/15/2025 1:00 PM EST Office Visit [address] [address] Tuyet Aguilar MD [address] [place] [address] documented as of this encounter Visit Diagnoses Diagnosis Pain Generalized pain documented in this encounter Additional Health Concerns Assessment Noted Time PHQ-9 Depression Total Score: 0 08/12/19 23 2:31 PM EDT documented as of this encounter Care Teams Low Vision Therapist Relationship Specialty Start Date End Date Tuyet Aguilar MD [address] [place] [address] [phone] PCP - General Internal Medicine 11/11/22 documented as of this encounter
--- OUTSIDE RECORDS SUMMARY | 2025-01-02 18:16 | XMS_ITS | Encounter Summary ---
Author Organization [employer] Address 75 [facility] 7t [place] [address] Care Team Providers Care Teacher Of Family And Consumer Science Name Role Phone Tuyet Aguilar MD Primary Care Pro vider Reason for Visit * Reason Comments Med Refill Encounter Details Date Type Department Care Team ([facility] st Contact Info) Description 11/09/2023 Refill [facility] 230 [place] [address] Tuyet Aguilar MD 230 [place] [address] Pain Social History Tobacco Use Types Packs/Day [...] Description 01/11/2025 9:30 AM EST Office Visit [facility] [address] [place] [address] Bj Hayes MD [address] [place] [phone] 03/15/2025 1:00 PM EST Office Visit [facility] [address] [place] [address] Tuyet Aguilar MD [address] [place] [address] [phone] documented as of this encounter Visit Diagnoses Diagnosis Pain Generalized pain documented in this encounter Additional Health Concerns Assessment Noted Time PHQ-9 Depression Total Score: 0 06/29/19 24 2:13 PM EDT documented as of this encounter Care Teams Teacher Of Family And Consumer Science Relationship Specialty Start Date End Date Tuyet Aguilar MD [address] [place] [phone] PCP - General Internal Medicine 11/11/22 documented as of this encounter
--- OUTSIDE RECORDS SUMMARY | 2025-01-02 18:16 | XMS_ITS | Encounter Summary ---
Author Organization [employer] Address 75 [facility] 7t [place] [address] Care Team Providers Care Outer Diameter Grinder Name Role Phone Tuyet Aguilar MD Primary Care Pro vider Reason for Visit * Reason Comments Med Refill Encounter Details Date Type Department Care Team ([facility] st Contact Info) Description 10/06/2023 Refill [facility] 230 [place] [address] Tuyet Aguilar MD 230 [place] [address] Pain Social History Tobacco Use Types Packs/Day [...] Office Visit [facility] [address] [place] [address] Bj Hayes MD [address] [place] [address] [phone] 03/15/2025 1:00 PM EST Office Visit [facility] [address] [place] [address] Tuyet Aguilar MD [address] [place] [address] [phone] documented as of this encounter Visit Diagnoses Diagnosis Pain Generalized pain documented in this encounter Additional Health Concerns Assessment Noted Time PHQ-9 Depression Total Score: 0 06/29/19 24 2:13 PM EDT documented as of this encounter Care Teams Outer Diameter Grinder Relationship Specialty Start Date End Date Tuyet Aguilar MD [address] [place] [phone] PCP - General Internal Medicine 11/11/22 documented as of this encounter
--- OUTSIDE RECORDS SUMMARY | 2025-01-02 18:16 | XMS_ITS | Encounter Summary ---
Author Organization [employer] Address 75 [facility] 7t [place] [address] Care Team Providers Care Supervisor [employer] Name Role Phone Tuyet Aguilar MD Primary Care Pro vider Reason for Visit * Reason Comments Med Refill Encounter Details Date Type Department Care Team ([facility] st Contact Info) Description 03/21/2023 Refill [facility] 230 [place] [address] Tuyet Aguilar MD 230 [place], [place] [phone] Pain Social History Tobacco Use Types Packs/Day [...] 9:30 AM EST Office Visit [facility] [address] [place] [address] Bj Hayes MD [address] [place] [address] 03/15/2025 1:00 PM EST Office Visit [address] [address] Tuyet Aguilar MD [address] [place] [address] documented as of this encounter Visit Diagnoses Diagnosis Pain Generalized pain documented in this encounter Additional Health Concerns Assessment Noted Time PHQ-9 Depression Total Score: 0 08/12/19 23 2:31 PM EDT documented as of this encounter Care Teams Supervisor [employer] Fab[employer] Relationship Specialty Start Date End Date Tuyet Aguilar MD [address] [place] [phone] PCP - General Internal Medicine 11/11/22 documented as of this encounter
--- OUTSIDE RECORDS SUMMARY | 2025-01-02 18:16 | XMS_ITS | Encounter Summary ---
Author Organization [employer] Address 75 [facility] 7t [place] [address] Care Team Providers Care Physical Therapy Supervisor Name Role Phone Tuyet Aguilar MD Primary Care Pro vider Encounter Details Date Type Department Care Team ([facility] st Contact Info) Description 08/28/2024 Refill [facility] 230 [place] [address] Tuyet Aguilar MD 230 [place] [address] Routine health maintenance; Mixed hyperlipidemia Social History Tobacco Use Types Packs/Day Years [...] Telephone Encounter - Tuyet Mckinney MD - 08/28/2024 4:48 PM EDT Sent already documented in this encounter Plan of Treatment Upcoming Encounters Date Type Department Care Team (Late st Contact Info) Description 01/11/2025 9:30 AM EST Office Visit [address] [address] Bj Hayes MD [address] [place] [address] 03/15/2025 1:00 PM EST Office Visit [address] [address] Tuyet Aguilar MD [address] [place] [address] documented as of this encounter Goals Goal Patient Goal Type Associated Problems Recent Progress Patient-Stated? Author Increase coping skills to promote long-term recovery and improve ability to perform daily activities General No Merle Sinder, RN documented as of this encounter Visit Diagnoses Diagnosis Routine health maintenance Unspecified examination Mixed hyperlipidemia documented in this encounter Additional Health Concerns Assessment Noted Time PHQ-9 Depression Total Score: 0 04/13/19 25 10:40 AM EST documented as of this encounter Care Teams Physical Therapy Supervisor Relationship Specialty Start Date End Date Tuyet Aguilar MD [address] [place] [phone] PCP - General Internal Medicine 11/11/22 documented as of this encounter
== END 2025-01-02 15:30 | disposition home or self-care (01) ==
LOC: HO.HOS 14:52
PROVIDERS: PCP Student in an Organized Health Care Education/Training Program; Visit Provider Physician Assistant
DX: M17.12 Unilateral primary osteoarthritis, left knee (principal)
CPT/HCPCS: 99213; G2211

== ENCOUNTER 2025-01-02 14:59 | Outpatient (REF) | payer OTHER, SELFPAY ==
--- NOTE | ~2025-01-02 | XR_ITS ---
EXAMINATION: XR KNEE AP STANDING CLINICAL INFORMATION: M25.561 - Pain in right knee COMPARISON: X-ray 04/20/2024, left knee TECHNIQUE: AP bilateral standing view of the knees was obtained. FINDINGS: Right knee: Mild lateral compartment joint space narrowing. No acute findings. Left knee: Severe medial compartment arthritis. No acute osseous findings in the single radiograph. XR/XR knee standing BI IMPRESSION: Left knee: Severe medial compartment arthritis. Right knee: Mild lateral compartment arthritis. Electronically signed by: Felipe Brown MD 01/03/2025 12:57 PM [facility]
--- OUTSIDE RECORDS SUMMARY | 2025-01-03 18:14 | XMS_ITS | Encounter Summary ---
Author Organization [employer] Address 75 [facility] 7t [place] [address] Care Team Providers Care Performance Improvement Specialist Name Role Phone Tuyet Aguilar MD Primary Care Pro vider Reason for Visit * Reason Comments Med Refill Encounter Details Date Type Department Care Team ([facility] st Contact Info) Description 09/20/2023 Refill [facility] 230 [place] [address] Tuyet Aguilar MD 230 [place] [address] Social History Tobacco Use Types Packs/Day Years [...] Description 01/11/2025 9:30 AM EST Office Visit [facility] [address] [place] [address] Bj Hayes MD [address] [place] [address] 03/15/2025 1:00 PM EST Office Visit [facility] [address] [place] [address] Tuyet Aguilar MD [address] [place] [address] [phone] documented as of this encounter Visit Diagnoses Not on filedocumented in this encounter Additional Health Concerns Assessment Noted Time PHQ-9 Depression Total Score: 0 06/29/19 24 2:13 PM EDT documented as of this encounter Care Teams Performance Improvement Specialist Relationship Specialty Start Date End Date Tuyet Aguilar MD [address] [place] [phone] PCP - General Internal Medicine 11/11/22 documented as of this encounter
--- OUTSIDE RECORDS SUMMARY | 2025-01-03 18:14 | XMS_ITS | Encounter Summary ---
Author Organization [employer] Address 75 [facility] 7t [place] [address] Care Team Providers Care Architect Naval Name Role Phone Tuyet Aguilar MD Primary Care Pro vider Reason for Visit * Reason Comments Med Refill Encounter Details Date Type Department Care Team ([facility] st Contact Info) Description 12/01/2022 Refill [facility] 230 [place] [address] Ghulam Krueger AGNP Pain Social History Tobacco Use Types Packs/Day Years Used Date Smoking Tobacco: Never Smokeless Tobacco: Never Alcohol Use Standard Drinks/Week Comments Never 0 (1 standard drink = 0.6 oz pur e alcohol) Depression Answer Date Recorded Patient Health Questionnaire-9 Score 0 08/11/2022 Housing Stability Answer Date Recorded What is your housing situation today? I have ansia zuniga 11/29/[address] you [...] 9:30 AM EST Office Visit [facility] [address] [place] [address] Bj Hayes MD [address] [place] [address] 03/15/2025 1:00 PM EST Office Visit [facility] [address] [place] [address] Tuyet Aguilar MD [address] [place] [address] documented as of this encounter Visit Diagnoses Diagnosis Pain Generalized pain documented in this encounter Additional Health Concerns Assessment Noted Time PHQ-9 Depression Total Score: 0 08/12/19 23 2:31 PM EDT documented as of this encounter Care Teams Architect Naval Relationship Specialty Start Date End Date Tuyet Aguilar MD [address] [place] [phone] PCP - General Internal Medicine 11/11/22 documented as of this encounter
--- OUTSIDE RECORDS SUMMARY | 2025-01-03 18:14 | XMS_ITS | Encounter Summary ---
Author Organization [employer] Address [address] [place] [address] 7t [place] [address] Care Team Providers Care House Nurse Name Role Phone Ghulam Krueger SIMIN Primary Care Provider Unavail Zulema Woodall Primary Care Provider [phone] Tuyet Aguilar MD Primary Care Pro vider Reason for Visit * Reason Comments Med Refill Encounter Details Date Type Department Care Team (Late st Contact Info) Description 09/24/2022 Refill [facility] 230 [place], [place] [phone] Bj Hayes MD [address] [place] [address] [phone] Uncomplicated opioid dependence (CMS/[facility]) Social History Tobacco Use Types Packs/Day Years [...] Visit [facility] 230 [place], [place] [phone] Bj Hayes MD 230 [place], [place] [phone] 03/15/2025 1:00 PM EST Office Visit [facility] [address] [place] [address] [phone] Tuyet Aguilar MD [address] [place] [address] [phone] documented as of this encounter Visit Diagnoses Diagnosis Uncomplicated opioid dependence (CMS/HCC) (HCC) documented in this encounter Additional Health Concerns Assessment Noted Time PHQ-9 Depression Total Score: 0 08/12/19 2:31 PM EDT documented as of this encounter Care Teams House Nurse Relationship Specialty Start Date End Date Ghulam Krueger AGNP PCP - General Family Medicine 07/23/22 10/31/22 Zulema Khan ANP [address] [place] [address] [phone] PCP - General Family Medicine 11/01/22 11/10/22 Tuyet Aguilar MD [address] [place] [address] [phone] PCP - General Internal Medicine 11/11/22 documented as of this encounter
--- OUTSIDE RECORDS SUMMARY | 2025-01-03 18:14 | XMS_ITS | Encounter Summary ---
Author Organization [employer] Address 75 [facility] 7t [place] [address] Care Team Providers Care Human Resources Recruiter Name Role Phone Tuyet Aguilar MD Primary Care Pro vider Reason for Visit * Reason Comments Med Refill Encounter Details Date Type Department Care Team ([facility] st Contact Info) Description 09/15/2023 Refill [facility] 230 [place] [address] Tuyet Aguilar MD 230 [place] [address] Pain Social History Tobacco Use Types Packs/Day [...] Description 01/11/2025 9:30 AM EST Office Visit [facility] [address] [place] [address] Bj Hayes MD [address] [place] [address] 03/15/2025 1:00 PM EST Office Visit [facility] [address] [place] [address] Tuyet Aguilar MD [address] [place] [address] [phone] documented as of this encounter Visit Diagnoses Diagnosis Pain Generalized pain documented in this encounter Additional Health Concerns Assessment Noted Time PHQ-9 Depression Total Score: 0 06/29/19 24 2:13 PM EDT documented as of this encounter Care Teams Human Resources Recruiter Relationship Specialty Start Date End Date Tuyet Aguilar MD [address] [place] [phone] PCP - General Internal Medicine 11/11/22 documented as of this encounter
--- OUTSIDE RECORDS SUMMARY | 2025-01-03 18:14 | XMS_ITS | Encounter Summary ---
Author Organization [employer] Address 75 [facility] 7t [place] [address] Care Team Providers Care Accounts Payable Associate Name Role Phone Tuyet Aguilar MD Primary Care Pro vider Reason for Visit * Reason Comments Med Refill Encounter Details Date Type Department Care Team ([facility] st Contact Info) Description 01/09/2023 Refill [facility] 230 [place] [address] Tuyet Aguilar MD 230 [place] [address] Pain Social History Tobacco Use Types Packs/Day [...] Description 01/11/2025 9:30 AM EST Office Visit [facility] [address] [place] [address] Bj Hayes MD [address] [place] [phone] 03/15/2025 1:00 PM EST Office Visit [address] [address] Tuyet Aguilar MD [address] [place] [address] documented as of this encounter Visit Diagnoses Diagnosis Pain Generalized pain documented in this encounter Additional Health Concerns Assessment Noted Time PHQ-9 Depression Total Score: 0 08/12/19 23 2:31 PM EDT documented as of this encounter Care Teams Accounts Payable Associate Relationship Specialty Start Date End Date Tuyet Aguilar MD [address] [place] [address] 16026 PCP - General Internal Medicine 11/11/22 documented as of this encounter
--- OUTSIDE RECORDS SUMMARY | 2025-01-03 18:14 | XMS_ITS | Encounter Summary ---
Author Organization [employer] Address 75 [facility] 7t [place] [address] Care Team Providers Care Lump Roller Name Role Phone Tuyet Aguilar MD Primary Care Pro vider Reason for Visit * Reason Comments Med Refill Encounter Details Date Type Department Care Team ([facility] st Contact Info) Description 04/04/2024 Refill [facility] 230 [place], [place] [phone] Cherelle Nieves DO 230 [place], [place] [phone] Social History Tobacco Use Types Packs/Day Years [...] Description 01/11/2025 9:30 AM EST Office Visit [facility] [address] [place] [address] Bj Hayes MD [address] [place] [address] 03/15/2025 1:00 PM EST Office Visit [facility] [address] [place] [address] Tuyet Aguilar MD [address] [place] [address] 79[address] documented as of this encounter Visit Diagnoses Not on filedocumented in this encounter Additional Health Concerns Assessment Noted Time PHQ-9 Depression Total Score: 0 06/29/19 24 2:13 PM EDT documented as of this encounter Care Teams Lump Roller Relationship Specialty Start Date End Date Tuyet Aguilar MD [address] [place] [address] [phone] PCP - General Internal Medicine 11/11/22 documented as of this encounter
--- OUTSIDE RECORDS SUMMARY | 2025-01-03 18:14 | XMS_ITS | Encounter Summary ---
Author Organization [employer] Address 75 [facility] 7t [place] [address] Care Team Providers Care Golf Stud Riveter Name Role Phone Tuyet Aguilar MD Primary Care Pro vider Reason for Visit * Reason Comments Med Refill Encounter Details Date Type Department Care Team ([facility] st Contact Info) Description 07/22/2023 Refill [facility] 230 [place] [address] Tuyet Aguilar MD 230 [place] [address] Pain Social History Tobacco Use Types Packs/Day [...] Description 01/11/2025 9:30 AM EST Office Visit [facility] [address] [place] [address] Bj Hayes MD [address] [place] [address] 03/15/2025 1:00 PM EST Office Visit [facility] [address] [place] [address] Tuyet Aguilar MD [address] [place] [address] [phone] documented as of this encounter Visit Diagnoses Diagnosis Pain Generalized pain documented in this encounter Additional Health Concerns Assessment Noted Time PHQ-9 Depression Total Score: 0 06/29/19 24 2:13 PM EDT documented as of this encounter Care Teams Golf Stud Riveter Relationship Specialty Start Date End Date Tuyet Aguilar MD [address] [place] [phone] PCP - General Internal Medicine 11/11/22 documented as of this encounter
--- OUTSIDE RECORDS SUMMARY | 2025-01-03 18:14 | XMS_ITS | Encounter Summary ---
Author Organization [employer] Address 75 [facility] 7t [place] [address] Care Team Providers Care Air Quality Technician Name Role Phone Tuyet Aguilar MD Primary Care Pro vider Reason for Visit * Reason Comments Med Refill Encounter Details Date Type Department Care Team ([facility] st Contact Info) Description 09/16/2023 Refill [facility]INE 230 [place] [address] Tuyet Aguilar MD 230 [place] [address] Pain Social History Tobacco Use Types Packs/Day [...] 01/11/2025 9:30 AM EST Office Visit [facility] MEDICINE [address] [place] [address] Bj Hayes MD [address] [place] [phone] 03/15/2025 1:00 PM EST Office Visit [facility] MED[facility]INE [address] [place] [address] Tuyet Aguilar MD [address] [place] [address] [phone] documented as of this encounter Visit Diagnoses Diagnosis Pain Generalized pain documented in this encounter Additional Health Concerns Assessment Noted Time PHQ-9 Depression Total Score: 0 06/29/19 24 2:13 PM EDT documented as of this encounter Care Teams Air Quality Technician Relationship Specialty Start Date End Date Tuyet Aguilar MD [address] [place] [address] [phone] PCP - General Internal Medicine 11/11/22 documented as of this encounter
--- OUTSIDE RECORDS SUMMARY | 2025-01-03 18:14 | XMS_ITS | Encounter Summary ---
Author Organization [employer] Address 75 [facility] 7t [place] [address] Care Team Providers Care High School Business Teacher Name Role Phone Tuyet Aguilar MD Primary Care Pro vider Reason for Visit * Reason Comments Med Refill Encounter Details Date Type Department Care Team ([facility] st Contact Info) Description 04/06/2024 Refill [facility]INE 230 [place] [address] Bj Hayes MD 230 [place], [place] [phone] Uncomplicated opioid dependence (CMS/[facility]) Social History Tobacco Use Types Packs/Day Years [...] Description 01/11/2025 9:30 AM EST Office Visit [facility] MEDICINE [address] [place] [address] Bj Hayes MD [address] [place] [address] 240[address] 03/15/2025 1:00 PM EST Office Visit [address] [address] Tuyet Aguilar MD [address] [place] [phone] documented as of this encounter Visit Diagnoses Diagnosis Uncomplicated opioid dependence (CMS/HCC) (HCC) documented in this encounter Additional Health Concerns Assessment Noted Time PHQ-9 Depression Total Score: 0 06/29/19 24 2:13 PM EDT documented as of this encounter Care Teams High School Business Teacher Relationship Specialty Start Date End Date Tuyet Aguilar MD [address] [place] [address] [phone] PCP - General Internal Medicine 11/11/22 documented as of this encounter
--- OUTSIDE RECORDS SUMMARY | 2025-01-03 18:14 | XMS_ITS | Encounter Summary ---
Author Organization [employer] Address 75 [facility] 7t [place] [address] Care Team Providers Care Liberal Arts Teacher Name Role Phone Tuyet Aguilar MD Primary Care Pro vider Reason for Visit * Reason Comments Med Refill Encounter Details Date Type Department Care Team ([facility] st Contact Info) Description 03/11/2023 Refill [facility]ICINE 230 [place] [address] Bj Hayes MD 230 [place], [place] [phone] Uncomplicated opioid dependence (CMS/HCC) Social History Tobacco [...] t he electric, gas, oil or water [employer] threatened to shut off services in your [...] Office Visit [facility] MEDICINE [address] [place] [address] Bj Hayes MD [address] [place] [address] 399[address] 03/15/2025 1:00 PM EST Office Visit [facility] MEDICINE [address] [place] [address] Tuyet Aguilar MD [address] [place] [address] [phone] documented as of this encounter Visit Diagnoses Diagnosis Uncomplicated opioid dependence (CMS/HCC) (HCC) documented in this encounter Additional Health Concerns Assessment Noted Time PHQ-9 Depression Total Score: 0 08/12/19 2:31 PM EDT documented as of this encounter Care Teams Liberal Arts Teacher Relationship Specialty Start Date End Date Tuyet Aguilar MD [address] [place] [phone] PCP - General Internal Medicine 11/11/22 documented as of this encounter
--- OUTSIDE RECORDS SUMMARY | 2025-01-03 18:14 | XMS_ITS | Encounter Summary ---
Author Organization [employer] Address 75 [facility] 7t [place] [address] Care Team Providers Care Nurse Reviewer Name Role Phone Tuyet Aguilar MD Primary Care Pro vider Reason for Visit * Reason Comments Med Refill Encounter Details Date Type Department Care Team ([facility] st Contact Info) Description 07/19/2023 Refill [facility] MEDICINE [address] [place] [address] Tuyet Aguilar MD [address] [place] [address] Pain Social History Tobacco Use Types Packs/Day [...] Description 01/11/2025 9:30 AM EST Office Visit [facility] MEDICINE [address] [place] [address] Bj Hayes MD [address] [place] [phone] 03/15/2025 1:00 PM EST Office Visit [facility] MEDICINE [address] [place] [address] Tuyet Aguilar MD [address] [place] [address] [phone] documented as of this encounter Visit Diagnoses Diagnosis Pain Generalized pain documented in this encounter Additional Health Concerns Assessment Noted Time PHQ-9 Depression Total Score: 0 06/29/19 24 2:13 PM EDT documented as of this encounter Care Teams Nurse Reviewer Relationship Specialty Start Date End Date Tuyet Aguilar MD [address] [place] [phone] PCP - General Internal Medicine 11/11/22 documented as of this encounter
--- OUTSIDE RECORDS SUMMARY | 2025-01-03 18:14 | XMS_ITS | Encounter Summary ---
Author Organization [employer] Address 75 [facility] 7t [place] [address] Care Team Providers Care Road Sign Installer Name Role Phone Tuyet Aguilar MD Primary Care Pro vider Reason for Visit * Reason Comments Med Refill Encounter Details Date Type Department Care Team ([facility] st Contact Info) Description 03/09/2023 Refill [facility] MEDICINE [address] [place] [address] Tuyet Aguilar MD 230 [place] [address] Pain Social History Tobacco Use Types Packs/Day [...] 01/11/2025 9:30 AM EST Office Visit [facility] MEDICINE [address] [place] [address] Bj Hayes MD [address] [place] [address] 03/15/2025 1:00 PM EST Office Visit [address] [address] Tuyet Aguilar MD [address] [place] [address] documented as of this encounter Visit Diagnoses Diagnosis Pain Generalized pain documented in this encounter Additional Health Concerns Assessment Noted Time PHQ-9 Depression Total Score: 0 08/12/19 23 2:31 PM EDT documented as of this encounter Care Teams Road Sign Installer Relationship Specialty Start Date End Date Tuyet Aguilar MD [address] [place] [phone] PCP - General Internal Medicine 11/11/22 documented as of this encounter
--- OUTSIDE RECORDS SUMMARY | 2025-01-03 18:15 | XMS_ITS | Encounter Summary ---
Author Organization [employer] Address 75 [facility] 7t [place] [address] Care Team Providers Care Control Officer Name Role Phone Tuyet Aguilar MD Primary Care Pro vider Reason for Visit * Reason Comments Med Refill Encounter Details Date Type Department Care Team ([facility] st Contact Info) Description 07/08/[address] [facility] MEDICINE 230 [place] [address] Tuyet Aguilar MD [address] [place] [address] Pain Social History Tobacco Use Types Packs/Day [...] 01/11/2025 9:30 AM EST Office Visit [facility] MEDICINE [address] [place] [address] Bj Hayes MD [address] [place] [address] 03/15/2025 1:00 PM EST Office Visit [facility] MEDICINE [address] [place] [address] Tuyet Aguilar MD [address] [place] [address] [phone] documented as of this encounter Visit Diagnoses Diagnosis Pain Generalized pain documented in this encounter Additional Health Concerns Assessment Noted Time PHQ-9 Depression Total Score: 0 06/29/19 24 2:13 PM EDT documented as of this encounter Care Teams Control Officer Relationship Specialty Start Date End Date Tuyet Aguilar MD [address] [place] [phone] PCP - General Internal Medicine 11/11/22 documented as of this encounter
--- OUTSIDE RECORDS SUMMARY | 2025-01-03 18:15 | XMS_ITS | Encounter Summary ---
Author Organization [employer] Address 75 [facility] 7t [place] [address] Care Team Providers Care Head Tennis Coach Name Role Phone Tuyet Aguilar MD Primary Care Pro vider Reason for Visit * Reason Comments Med Refill Encounter Details Date Type Department Care Team ([facility] st Contact Info) Description 01/03/2025 Refill [facility] MEDICINE [address] [place] [address] Tuyet Aguilar MD [address] [place] [address] Social History Tobacco Use Types Packs/Day Years [...] Description 01/11/2025 9:30 AM EST Office Visit [address] [address] Bj Hayes MD [address] [place] [address] 03/15/2025 1:00 PM EST Office Visit [address] [address] Tuyet Aguilar MD [address] [place] [address] documented as of this encounter Goals Goal [...] documented as of this encounter Care Teams Head Tennis Coach Relationship Specialty Start Date End Date Tuyet Aguilar MD [address] [place] [phone] PCP - General Internal Medicine 11/11/22 documented as of this encounter
--- OUTSIDE RECORDS SUMMARY | 2025-01-03 18:15 | XMS_ITS | Encounter Summary ---
Author Organization [employer] Address 75 [facility] 7t [place] [address] Care Team Providers Care Supervisor Finish End Name Role Phone Tuyet Aguilar MD Primary Care Pro vider Reason for Visit * Reason Comments Med Refill Encounter Details Date Type Department Care Team ([facility] st Contact Info) Description 10/19/2024 Refill [facility] MEDICINE [address] [place] [address] Bj Hayes MD 230 [place], [place] [phone] Opioid dependence in remission (CMS/[facility]) Social History Tobacco Use Types Packs/Day [...] Description 01/11/2025 9:30 AM EST Office Visit [address] [address] Bj Hayes MD [address] [place] [address] 03/15/2025 1:00 PM EST Office Visit [address] [address] Tuyet Aguilar MD [address] [place] [phone] documented as of this encounter Goals Goal [...] as of this encounter Care Teams Supervisor Finish End Relationship Specialty Start Date End Date Tuyet Aguilar MD [address] [place] [phone] PCP - General Internal Medicine 11/11/22 documented as of this encounter
--- OUTSIDE RECORDS SUMMARY | 2025-01-03 18:15 | XMS_ITS | Encounter Summary ---
Author Organization [employer] Address 75 [facility] 7t [place] [address] Care Team Providers Care Electrical Designer Name Role Phone Tuyet Aguilar MD Primary Care Pro vider Reason for Visit * Reason Comments Med Refill Encounter Details Date Type Department Care Team ([facility] st Contact Info) Description 01/13/2024 Refill [facility] [place] MEDICINE [address] [place] [address] Tuyet Aguilar MD [address] [place] [address] Pain Social History Tobacco Use Types Packs/Day [...] 01/11/2025 9:30 AM EST Office Visit [facility] [place] [facility] MEDICINE [address] [place] [address] Bj Hayes MD [address] [place] [address] 03/15/2025 1:00 PM EST Office Visit [address] [address] Tuyet Aguilar MD [address] [place] [address] documented as of this encounter Visit Diagnoses Diagnosis Pain Generalized pain documented in this encounter Additional Health Concerns Assessment Noted Time PHQ-9 Depression Total Score: 0 06/29/19 24 2:13 PM EDT documented as of this encounter Care Teams Electrical Designer Relationship Specialty Start Date End Date Tuyet Aguilar MD [address] [place] [address] PCP - General Internal Medicine 11/11/22 documented as of this encounter
--- OUTSIDE RECORDS SUMMARY | 2025-01-03 18:15 | XMS_ITS | Encounter Summary ---
Author Organization [employer] Address [address] [place] [address] 7t [place] [address] Care Team Providers Care Casing Flusher Name Role Phone Tuyet Aguilar MD Primary Care Pro vider Reason for Visit * Reason Comments Med Refill Encounter Details Date Type Department Care Team (Late st Contact Info) Description 11/19/2022 Refill [facility] MEDICINE [address] [place] [address] [phone] Bj Hayes MD [address] [place] [address] [phone] Uncomplicated opioid dependence (CMS/[facility]) Social History Tobacco Use Types Packs/Day Years [...] Description 01/11/2025 9:30 AM EST Office Visit [facility] MEDICINE [address] [place] [address] [phone] Bj Hayes MD [address] [place] [address] [phone] 03/15/2025 1:00 PM EST Office Visit [facility] MEDICINE 230 [place] [address] Tuyet Aguilar MD 230 [place], [place] [phone] documented as of this encounter Visit Diagnoses Diagnosis Uncomplicated opioid dependence (CMS/HCC) (HCC) documented in this encounter Additional Health Concerns Assessment Noted Time PHQ-9 Depression Total Score: 0 08/12/19 2:31 PM EDT documented as of this encounter Care Teams Casing Flusher Relationship Specialty Start Date End Date Tuyet Aguilar MD [address] [place] [address] PCP - General Internal Medicine 11/11/22 documented as of this encounter
--- OUTSIDE RECORDS SUMMARY | 2025-01-03 18:15 | XMS_ITS | Encounter Summary ---
Author Organization [employer] Address 75 [facility] 7t [place] [address] Care Team Providers Care Book Cleaner Name Role Phone Tuyet Aguilar MD Primary Care Pro vider Reason for Visit * Reason Comments Med Refill Encounter Details Date Type Department Care Team ([facility] st Contact Info) Description 07/06/2024 Refill [facility] [address] [place] [address] Tuyet Aguilar MD [address] [place] [address] Acute pain of left knee Social History [...] housing situation today? I have ansia zuniga 12/07/[address] you [...] Description 01/11/2025 9:30 AM EST Office Visit [address] [address] Bj Hayes MD [address] [place] [address] 03/15/2025 1:00 PM EST Office Visit [address] [address] Tuyet Aguilar MD [address] [place] [address] documented as of this encounter Goals Goal [...] documented as of this encounter Care Teams Book Cleaner Relationship Specialty Start Date End Date Tuyet Aguilar MD [address] [place] [phone] PCP - General Internal Medicine 11/11/22 documented as of this encounter
--- OUTSIDE RECORDS SUMMARY | 2025-01-03 18:15 | XMS_ITS | Encounter Summary ---
Author Organization [employer] Address 75 [facility] 7t [place] [address] Care Team Providers Care Charge Manager Name Role Phone Tuyet Aguilar MD Primary Care Pro vider Reason for Visit * Reason Comments Med Refill Encounter Details Date Type Department Care Team ([facility] st Contact Info) Description 06/10/2024 Refill [facility] MEDICINE [address] [place] [address] Rakel Ng MD [address] [place], [place] [phone] Pain Social History Tobacco Use Types Packs/Day [...] Description 01/11/2025 9:30 AM EST Office Visit [address] [address] Bj Hayes MD [address] [place] [address] 03/15/2025 1:00 PM EST Office Visit [address] [address] Tuyet Aguilar MD [address] [place] [address] documented as of this encounter Goals Goal [...] documented as of this encounter Care Teams Charge Manager Relationship Specialty Start Date End Date Tuyet Aguilar MD [address] [place] [address] PCP - General Internal Medicine 11/11/22 documented as of this encounter
--- OUTSIDE RECORDS SUMMARY | 2025-01-03 18:15 | XMS_ITS | Encounter Summary ---
Author Organization [employer] Address 75 [facility] 7t [place] [address] Care Team Providers Care Lieutenant Firefighter Name Role Phone Tuyet Aguilar MD Primary Care Pro vider Encounter Details Date Type Department Care Team ([facility] st Contact Info) Description 08/28/2024 Refill [facility] MEDICINE 230 [place] [address] Tuyet Aguilar MD [address] [place] [address] Routine health maintenance; Mixed hyperlipidemia Social History [...] 01/11/2025 9:30 AM EST Office Visit [address] [address] Bj Hayes MD [address] [place] [address] 03/15/2025 1:00 PM EST Office Visit [address] [address] Tuyet Aguilar MD [address] [place] [address] documented as of this encounter Goals Goal Patient Goal Type Associated Problems Recent Progress Patient-Stated? Author Increase coping skills to promote long-term recovery and improve ability to perform daily activities General No Merle Snider, RN documented as of this encounter Visit Diagnoses Diagnosis Routine health maintenance Unspecified examination Mixed hyperlipidemia documented in this encounter Additional Health Concerns Assessment Noted Time PHQ-9 Depression Total Score: 0 04/13/19 25 10:40 AM EST documented as of this encounter Care Teams Lieutenant Firefighter Relationship Specialty Start Date End Date Tuyet Aguilar MD [address] [place] [phone] PCP - General Internal Medicine 11/11/22 documented as of this encounter
--- OUTSIDE RECORDS SUMMARY | 2025-01-03 18:15 | XMS_ITS | Clinical Summary ---
Author Organization [employer] Address 75 [facility] 7t [place] [address] Care Team Providers Care Concrete Stone Finishing Supervisor Name Role Phone Tuyet Aguilar MD [...] seconds and spit. 120 mL 023 Active Emollient (CeraVe Daily Moisturizing) lotion Apply 1 Application topically at noon and 1 Application in the evening. 87 mL 2 024 Active Diclofenac Sodium 1 % gel APPLY 2 GRAMS TOPICALLY TO AFFECTED AREA(S) ONCE DAILY NEEDED FOR KNEE PAIN 100 g 1 025 Active ammonium lactate (Lac-Hydrin) 12 % [...] complication, without long-term current use of insulin ([facility]) TEST BLOOD SUGAR 1-2 TIMES PER DAY DIRECTED 100 strip Active TRUEplus Lancets 33G miscIndications:T ype 2 diabetes mellitus without complication, without long-term current use of insulin ([facility]) USE DIRECTED TO TEST BLOOD SUGAR ONE OR TWO TIMES DAILY 100 each Active lisinopril-hydroC HLOROthiazide 20-25 MG tabletIndications :Essential hypertension, benign TAKE 1 TABLET BY MOUTH EVERY MORNING 90 tablet 1 Active Jardiance 25 MG TAKE 1 TABLET BY MOUTH EVERY MORNING 90 tablet 1 01/04/20 25 11:13 AM EST Active docusate sodium (Colace) 100 MG capsuleIndication [...] complication, without long-term current use of insulin ([facility]) Take 1 tablet (500 mg) by mouth at noon and 1 tablet (500 mg) in the evening. Do not crush, chew, or split. 180 tablet 1 Active omega-3 (Fish Oil) 1000 MG capsuleIndication s:Mixed hyperlipidemia Take 1 capsule (1,000 mg) by mouth 2 times daily. 180 capsule 1 Active cholecalciferol (Vitamin D-3) 50 MCG (2000 UT) capsule Take 1 capsule (50 mcg) by mouth Once per day. 90 capsule 3 025 2025 Active atorvastatin (Lipitor) 20 MG tablet TAKE 1 TABLET BY MOUTH AT BEDTIME 90 tablet 1 025 Active buprenorphine-nal oxone (Suboxone) 4-1 MG per sublingual filmIndications:O pioid dependence in remission (CMS/HCC) ([facility]) Place 1 Film under the tongue Once per day. Do not start before October 26, 2024. 28 Film 2 025 2024 Active Buprenorphine HCl-Naloxone HCl (Suboxone) 8-2 MG SL filmIndications:O pioid dependence in remission (CMS/HCC) ([facility]) Place 1 Film under the tongue 2 times daily. Do not start before October 26, 2024. 56 Film 2 025 2024 Active Aspirin Low Dose 81 MG EC tabletIndications :Routine health maintenance TAKE 1 TABLET BY MOUTH AT BEDTIME 90 tablet 1 025 Active Acetaminophen Extra Strength 500 MG tabletIndications :Acute pain of left knee TAKE 2 TABLETS BY MOUTH EVERY 8 HOURS NEEDED FOR PAIN 30 tablet 1 01/04/20 25 11:13 AM EST 025 Active Diclofenac Sodium 1 % gelIndications:Ac [place] pain of left knee APPLY 2 GRAMS TOPICALLY TO AFFECTED AREA(S) EVERY TWELVE HOURS NEEDED 100 g 1 01/04/20 25 11:13 AM EST 025 Active Januvia 100 MG tablet TAKE 1 TABLET BY MOUTH EVERY MORNING 90 tablet 1 01/04/20 25 11:13 AM EST 025 Active Alcohol Swabs (Alcohol Prep) 70 % pads USE DIRECTED TWICE DAILY 100 each 11 Active Alcohol Swabs (Alcohol Prep) 70 % pads USE DIRECTED TO TEST BLOOD SUGAR TWICE DAILY 100 each 11 024 2024 Discontinued acetaminophen (Tylenol) 325 MG tabletIndications :Pain Take 1 tablet (325 mg) by mouth every 8 (eight) hours if needed for mild pain. 30 tablet 2 025 2024 Discontinued(O ther) Januvia 100 MG tablet TAKE 1 TABLET BY MOUTH EVERY MORNING 90 tablet 1 025 2024 Discontinued Diclofenac Sodium 1 % gelIndications:Ac [place] pain of left knee APPLY 2 GRAMS [...] 04/20/2024 History of hepatitis C virus infection 4 History of syphilis 08/02/2023 Routine adult health maintenance 08/11/2022 Assessment & Plan (08/11/2022 3:08 PM EDT): Patient denied getting a colonoscopy but will accept cologuard. Aortic valve stenosis 08/10/2022 Hepatic fibrosis 03/14/2019 Dysthymia 05/01/2012 History of substance abuse ([facility]) 11/09/2011 Posttraumatic stress disorder 08/03/2011 Obesity 06/23/2011 Benign hypertension 04/04/2011 Bipolar disorder 08/02/2010 Assessment & Plan (08/11/2022 3:06 PM EDT): Patient states his mood has been well controlled. Chronic type B viral hepatitis ([facility]/HCC) 011 Diabetes mellitus type 2, uncomplicated 02/22/19 11 Assessment & Plan (08/11/2022 3:11 PM EDT): A1C: 7.8 Hypertriglyceridemia 02/22/2010 Encounters * This document contains information received from the source organization and may not represent a complete record from that organization. Date Type Department Care Team Description 01/03/2025 Refill [facility] MEDICINE [address] [place] [address] Tuyet Aguilar MD 12/13/2024 Refill [facility] MEDICINE [address] [place] [address] Tuyet Aguilar MD 12/09/2024 Refill [facility] WALK-IN CENTER [address] [place] [address] Tuyet Aguilar MD Acute pain of left knee 12/04/2024 Refill [facility] MED & PEDS [address] [place] [address] Tuyet Aguilar MD Acute pain of left knee 11/30/2024 Refill [facility] MEDICINE [address] [place] [address] Tuyet Aguilar MD Routine health maintenance 11/29/2024 Refill [facility] [address] [place] [address] Tuyet Aguilar MD Routine health maintenance 10/26/2024 9:00 AM EDT Office Visit [facility] MEDICINE [address] [place] [address] Bj Hayes MD Opioid dependence in remission ([facility]/HCC) (Primary Dx) 10/26/2024 Travel 10/23/2024 Refill [facility] [address] [place] [address] Tuyet Aguilar MD Acute pain of left knee 10/23/2024 Refill [facility] MEDICINE [address] [place] [address] Merle Snider RN Opioid dependence in remission (CMS/HCC) 10/21/2024 Refill [facility] MEDICINE [address] [place] [address] Rakel Ng MD 10/19/2024 Refill [facility] MEDICINE [address] [place] [address] Bj Hayes MD Opioid dependence in remission ([facility]/HCC) 10/15/2024 Telephone [facility] MEDICINE [address] [place] [phone] Tuyet Aguilar MD Call Back Request 10/12/2024 Results Follow-Up [facility] [address] [place] [address] Tuyet Aguilar MD Confirmatory Syphilis Profile 10/11/2024 1:15 PM EDT Office Visit [facility] MEDICINE [address] [place] [address] Tuyet Aguilar MD Benign hypertension (Primary Dx); Other constipation; Type 2 diabetes mellitus without complication, without long-term current use of insulin (CMS/HCC); Mixed hyperlipidemia; Class 1 obesity due to excess calories with serious comorbidity and body mass index (BMI) of 32.0 to 32.9 in adult; Routine adult health maintenance; Primary osteoarthritis of left knee 10/11/2024 Travel 10/10/2024 Telephone [facility] MEDICINE [address] [place] [phone] Tuyet Aguilar MD chartprep 10/09/2024 Orders Only [facility] [address] [place] [phone] Tuyet Aguilar MD 10/09/2024 Results Follow-Up [facility] MED[facility]INE [address] [place] [phone] Tuyet Aguilar MD Albumin, Random Urine W/Creatinine, CBC, Comprehensive Metabolic Panel, Additional followed-up results: 11 10/09/2024 Refill [facility] WALK-IN CENTER [address] [place] [phone] Tuyet Aguilar MD Acute pain of left [...] Description 01/11/2025 9:30 AM EST Office Visit [address] [phone] Bj Hayes MD [address] [place] [address] [phone] 03/15/2025 1:00 PM EST Office Visit [facility] MEDICINE [address] [place] [address] [phone] Tuyet Aguilar MD [address] [place], [place] [phone] Health Maintenance Due Date Last Done Comments [...] older Completed 08/04/2023 HIV Screening Completed 10/09/2024, 07/2023, 03/17/2023, Additional history exists HIB Vaccines Aged [...] perform daily activities General No Merle Snider, grocery clerk marking Procedure Name Priority Date/Time Associated Diagnosis Comments [...] Confirmatory Syphilis Profile (10/09/2024 9:23 AM EDT) Pathologist [facility] Rapid Plasma Reagin, Quant Reactive 1:2(A) Nonreactive [facility] Treponema pallidum Antibody, Particle Agglutination Reactive(A) Nonreactive [facility] Comment:Testing performed at : [address] [address] 10/09/2024 9:23 AM EDT 10/09/2024 11:59 AM EDT Tuyet Mckinney MD LAB BLOOD ORDERAB LES Final Result Performing Organization Address [facility]/ZIP Co de Phone Number [facility] [address] [place] [phone] * (ABNORMAL) Syphilis Screen (10/09/2024 9:23 AM EDT) Pathologist [facility] Syphilis Screen Reactive( A) Nonreactive [facility] Comment:Reactive specimens a re sent to the [facility] Labfor confirmatory tests. Blood 10/09/2024 9:23 AM EDT 10/09/2024 10:58 AM EDT us Tuyet Mckinney MD LAB BLOOD ORDERAB LES Final Result Performing Organization Address City/[facility]/ZIP Co de Phone Number [facility] [address] [place] [phone] * Vitamin D, 25-Hydroxy, Total, Immunoassay (10/09/2024 9:23 AM EDT) Pathologist [facility] Vitamin D 25-OH Total 97.7 >30 ng/mL [facility] Comment: Health Based Reference Values*< 20 ng/mL [id number] ng/mL Insufficient> 30 ng/mL Sufficient*Ajith GALLARDO. N [...] MD LAB BLOOD ORDERAB LES Final Result [facility] [address] [place] [address] [phone] * TSH with Reflex to Free T4 (10/09/2024 9:23 AM EDT) TSH reflex Free T4 1.34 0.32 - 4.0 uIU/mL [facility] Blood 10/09/2024 9:23 AM EDT 10/09/2024 10:58 AM EDT us Tuyet Mckinney MD LAB BLOOD ORDERAB LES Final Result Performing Organization Address City/[facility]/ZIP Co de Phone Number [facility] [address] [place] [phone] * Albumin, Random Urine W/Creatinine (10/09/2024 9:23 AM EDT) Creatinine, Urine 60.02 mg/dL [facility] Microalbumin Urine 6.0 mg/L [facility] Microalbum Creatinine Ratio Ur 9.9 <30 ug/mg cr [facility] Comment:Albumin/Creatinine R atio Reference Ranges: Normal: < 30 ug/mg creatinine Microalbuminuria: 30 - 300 ug/mg creatinineClinical Albuminuria: > 300 ug/mg creatinine Urine (Urine, Random) 10/09/2024 9:23 AM EDT 10/09/2024 11:01 AM EDT us Tuyet Mckinney MD LAB URINE ORDERAB LES Final Result Performing Organization Address [facility]/ZIP Co de Phone Number [facility] [address] [place] [phone] * Hepatitis C Antibody with Reflex to HCV, RNA, Quantitative, Real-Time PCR (10/09/2024 9:23 AM EDT) Hepatitis C Antibody Nonreactive Nonreactive [facility] Comment:Antibodies to HCV no t detected; does not exclude early acuteHCV infection. Blood Venous blood specimen / Unknown 10/09/2024 9:23 AM EDT 10/09/2024 10:58 AM EDT us Tuyet Mckinney MD LAB BLOOD ORDERAB LES Final Result Performing Organization Address [facility]/ZIP Co de Phone Number [facility] [address] [place] [phone] * Iron And Total Iron Binding Capacity (10/09/2024 9:23 AM EDT) Iron 104 45 - 160 mcg/dL [facility] Total Iron Binding Capacity 300 228 - 428 mcg/dL [facility] Percent Iron Saturation 35 15 - 50 % [facility] Unsaturated Iron Binding 196 ug/dL [facility] Blood Venous blood specimen / Unknown 10/09/2024 9:23 AM EDT 10/09/2024 10:58 AM EDT us Tuyet Mckinney MD LAB BLOOD ORDERAB LES Final Result Performing Organization Address [facility]/ZIP Co de Phone Number [facility] [address] [place] [phone] * Hepatitis B surface antigen, EIA (10/09/2024 9:23 AM EDT) Pathologist [facility] Hepatitis B Surface Ag Negative Negative [facility] Blood Venous blood specimen / Unknown 10/09/2024 9:23 AM EDT 10/09/2024 10:58 AM EDT Tuyet Mckinney MD LAB BLOOD ORDERAB LES Final Result Performing Organization Address [facility] Co de Phone Number [facility] [address] [place] [phone] * Hepatitis B Core Antibody, Total (10/09/2024 9:23 AM EDT) [facility] Hepatitis B Core Antibody Reactive Nonreactive [facility] Comment:Presumptive evidence of anti-HBc. Blood Venous blood specimen / Unknown 10/09/2024 9:23 AM EDT 10/09/2024 10:58 AM EDT us Tuyet Mckinney MD LAB BLOOD ORDERAB LES Final Result Performing Organization Address [facility] Co de Phone Number [facility] [address] [place] [address] [phone] * HIV-1/2 Antigen and Antibodies, Fourth Generation, with Reflexes (10/09/2024 9:23 AM EDT) [facility] HIV AB/AG Nonreactive Nonreactive [facility] Comment:HIV-1 p24 Ag and/or HIV-1/HIV-2 Ab not detected.A test result that is nonreactive does not exclude thepossibility of exposure to or infection with HIV-1 and/orHIV-2. Nonreactive results in this assay for individualswith prior exposure to HIV-1 and/or HIV-2 may be due toantigen and antibody levels that are below the limit ofdetection of this assay.The [employer] HIV Ag/Ab Combo assay result andsupplemental assay results should be interpreted inconjunction with the patient's clinical presentation,history and other laboratory results. If the results areinconsistent with clinical evidence, additional testing issuggested to confirm the result. Blood Venous blood specimen / Unknown 10/09/2024 9:23 AM EDT 10/09/2024 10:58 AM EDT Tuyet Mckinney MD LAB BLOOD ORDERAB LES Final Result Performing Organization Address [facility]/ZIP Co de Phone Number [facility] [address] [place] [phone] * Hepatitis B Surface Antibody, Qualitative (10/09/2024 9:23 AM EDT) Pathologist [facility] ~Hepatitis B Surface Antibody REACTIVE Nonreactive [facility] Comment:REACTIVE: > 11.99 mI U/mL Blood Venous blood specimen / Unknown 10/09/2024 9:23 AM EDT 10/09/2024 10:58 AM EDT us Tuyet Mckinney MD LAB BLOOD ORDERAB LES Final Result Performing Organization Address City/[facility]/ZIP Co de Phone Number [facility] [address] [place] [address] [phone] * (ABNORMAL) CBC (10/09/2024 9:23 AM EDT) [facility] White Blood Count 8.7 4.8 - 10.8 X10*3/uL [facility] Red Blood Count 4.56(L) 4.60 - 5.80 X10*6/uL [facility] Hemoglobin 13.9(L) 14.0 - 18.0 g/dl [facility] Hematocrit 41.2(L) 42.0 - 52.0 % [facility] Mean Corpuscular Volume 90.4 80.0 - 98.0 fL [facility] Mean Corpuscular Hemoglobin 30.5 27.0 - 33.0 pg [facility] Mean Corpuscular HGB Conc 33.7 31.0 - 36.0 g/dl [facility] Red Cell Distribution Width 14.1 11.0 - 16.0 % [facility] Platelet Count 228 160 - 400 X10*3/uL [facility] Mean Platelet Volume 12.6(H) 9.4 - 12.4 fL [facility] NRBC Pct Auto 0.0 0.0 - 0.2 /100WBC [facility] NRBC Abs Auto 0.000 0.0 - 0.012 X10*3/uL [facility] Blood Venous blood specimen / Unknown 10/09/2024 9:23 AM EDT 10/09/2024 10:58 AM EDT us Tuyet Mckinney MD LAB BLOOD ORDERAB LES Final Result Performing Organization Address City/[facility]/ZIP Co de Phone Number [facility] [address] [place] [phone] * PSA,Total (10/09/2024 9:23 AM EDT) [facility] Prostate Specific Antigen 0.23 <0.05 - 4.0 ng/mL [facility] Comment:PSA methodology: Jeffry Last i ChemiluminescentMicroparticle Immunoassay (CMIA) Blood Venous blood specimen / Unknown 10/09/2024 9:23 AM EDT 10/09/2024 10:58 AM EDT Tuyet Mckinney MD LAB BLOOD ORDERAB LES Final Result Performing Organization Address City/[facility]/ZIP Co de Phone Number [facility] [address] [place] [phone] * (ABNORMAL) Hemoglobin A1c (10/09/2024 9:23 AM EDT) Hemoglobin A1c 7.1(H) <6.0 % [facility] Comment:Hemoglobin A1C Refer ence Range Adults: 4.8 - 6.0 % Non diabetic: < 6.0 % Goal: < 7.0 %Additional Action Suggested: > 8.0 %Note: Hemoglobin A1c results are invalid for patients with abnormal amounts of HbF. Blood transfusions may impact the HbA1c concentration in the patient sample. Estimated Average Glucose 157 mg/dL [facility] Comment:eAG = Estimated ave rage glucose which is %A1C expressed asaverage glucose, using the formula of the [id number] Glucose study (ADAG), Diabetes Care, Vol.31,#8,2007 Blood Venous blood specimen / Unknown 10/09/2024 9:23 AM EDT 10/09/2024 10:58 AM EDT us Tuyet Mckinney MD LAB BLOOD ORDERAB LES Final Result Performing Organization Address City/[facility]/ZIP Co de Phone Number [facility] [address] [place] [phone] * Ferritin (10/09/2024 9:23 AM EDT) Ferritin 189 20 - 250 ng/mL [facility] Blood Venous blood specimen / Unknown 10/09/2024 9:23 AM EDT 10/09/2024 10:58 AM EDT us Tuyet Mckinney MD LAB BLOOD ORDERAB LES Final Result Performing Organization Address City/[facility]/ZIP Co de Phone Number [facility] [address] [place] [address] [phone] * (ABNORMAL) Lipid Panel, Standard (10/09/2024 9:23 AM EDT) Triglycerides 224(H) <150 mg/dL [facility] Comment:Desirable Triglyceri de: less than 150 mg/dLBorderline High Triglyceride 150-199 mg/dLHigh Triglyceride: 200-499 mg/dLVery High Triglyceride: greater than or equal to 5OO mg/dL Cholesterol 195 <200 mg/dL [facility] Comment:Desirable Cholestero l: less than 200 mg/dLBorderline High Cholesterol: 200-239 mg/dLHigh Cholesterol: greater than 239 mg/dL LDL Cholesterol Calculated 93 <100 mg/dL [facility] Comment:Desirable LDL: less than 100 mg/dLNear Optimal/Above Optimal LDL: 110- 129 mg/dLBorderline High LDL: 130-159 mg/dLHigh LDL: 160-189 mg/dLVery High LDL: greater than or equal to 190 mg/dL HDL Cholesterol 58 >40 mg/dL [facility] Comment:Desirable HDL: great er than 40 mg/dL Note: This HDL assay may give artificially low results in patients with liver disease. Blood Venous blood specimen / Unknown 10/09/2024 9:23 AM EDT 10/09/2024 10:58 AM EDT Tuyet Mckinney MD LAB BLOOD ORDERAB LES Final Result [facility] [address] [place] [phone] * (ABNORMAL) Comprehensive Metabolic Panel (10/09/2024 9:23 AM EDT) Sodium 136 135 - 145 mmol/L [facility] Potassium 3.7 3.3 - 5.1 mmol/L [facility] Chloride 99 96 - 108 mmol/L [facility] Carbon Dioxide 28 22 - 29 mmol/L [facility] Anion Gap 13 12 - 20 [facility] Urea Nitrogen (BUN) 14 9 - 16 mg/dL [facility] Creatinine, Serum 0.76 0.5 - 1.4 mg/dL [facility] Estimated Glomerular Filt Rate >60 [facility] Comment:Chronic Kidney Disea se: Estimated GFR < 60 mL/min/1.78i1Dgmiww Kidney Disease: Estimated GFR < 15 mL/min/1.73m2 Glucose 136(H) 60 - 115 mg/dL [facility] Calcium 9.4 8.4 - 10.2 mg/dL [facility] Bilirubin, Total 0.3 0.0 - 1.0 mg/dL [facility] Aspartate Amino Transferase 40(H) 5 - 37 U/L [facility] Alanine Aminotransferase 52(H) 0 - 40 U/L [facility] Total Protein 8.3(H) 6.5 - 8.0 g/dL [facility] Albumin Level 4.6 3.5 - 5.0 g/dL [facility] Alkaline Phosphatase 111 39 - 117 U/L [facility] Blood Venous blood specimen / Unknown 10/09/2024 9:23 AM EDT 10/09/2024 10:58 AM EDT us Tuyet Mckinney MD LAB BLOOD ORDERAB LES Final Result Performing Organization Address City/State/[facility] Co de Phone Number [facility] [address] [place] [phone] from Last 3 Months Insurance [facility] < 65 [address] N[place] [id number] DENTAL - [facility] [address] [place] [address] [address] [place] [address] Care Teams Concrete Stone Finishing Supervisor Relationship Specialty Start Date End Date Tuyet Aguilar MD [address] [place] [phone] PCP - General Internal Medicine 11/11/22
--- OUTSIDE RECORDS SUMMARY | 2025-01-03 18:15 | XMS_ITS | Encounter Summary ---
Author Organization [employer] Address [address] [facility] [address]t [place] [address] Care Team Providers Care Fur Finisher Seamstress Name Role Phone Tuyet Aguilar MD Primary Care Pro vider Reason for Visit * Reason Comments Med Refill Encounter Details Date Type Department Care Team ([facility] Contact Info) Description 12/16/2023 Refill [facility] MEDICINE [address] [place] [address] Bj Hayes MD [address] [place], [place] [phone] Uncomplicated opioid dependence (CMS/[facility]) Social History Tobacco Use Types Packs/Day Years [...] EST Office Visit [facility] MEDICINE [address] [place] [phone] Bj Hayes MD [address] [place] [address] [phone] 03/15/2025 1:00 PM EST Office Visit [facility] MED[facility] [address] [place] [phone] Tuyet Aguilar MD [address] [place] [address] [phone] documented as of this encounter Visit Diagnoses Diagnosis Uncomplicated opioid dependence (CMS/HCC) (HCC) documented in this encounter Additional Health Concerns Assessment Noted Time PHQ-9 Depression Total Score: 0 06/29/19 24 2:13 PM EDT documented as of this encounter Care Teams Fur Finisher Seamstress Relationship Specialty Start Date End Date Tuyet Aguilar MD [address] [place] [address] [phone] PCP - General Internal Medicine 11/11/22 documented as of this encounter
--- OUTSIDE RECORDS SUMMARY | 2025-01-03 18:15 | XMS_ITS | Encounter Summary ---
Author Organization [employer] Address [address] [facility] 7t [place] [address] Care Team Providers Care Right Of Way Maintenance Supervisor Name Role Phone Tuyet Aguilar MD Primary Care Pro vider Reason for Visit * Reason Comments Med Refill Encounter Details Date Type Department Care Team ([facility] Contact Info) Description 06/20/2023 Refill [facility] MEDICINE [address] [place] [address] Tuyet Aguilar MD [address] [place] [phone] Pain Social History Tobacco Use Types Packs/Day [...] 9:30 AM EST Office Visit [facility] MED[facility] [address] [place] [phone] Bj Hayes MD [address] [place] [phone] 03/15/2025 1:00 PM EST Office Visit [address] [phone] Tuyet Aguilar MD [address] [place] [phone] documented as of this encounter Visit Diagnoses Diagnosis Pain Generalized pain documented in this encounter Additional Health Concerns Assessment Noted Time PHQ-9 Depression Total Score: 0 08/12/19 23 2:31 PM EDT documented as of this encounter Care Teams Right Of Way Maintenance Supervisor Relationship Specialty Start Date End Date Tuyet Aguilar MD [address] [place] [phone] PCP - General Internal Medicine 11/11/22 documented as of this encounter
--- OUTSIDE RECORDS SUMMARY | 2025-01-03 18:15 | XMS_ITS | Encounter Summary ---
Author Organization [employer] Address 75 [facility] 7t [place] [address] Care Team Providers Care Rehab Manager Name Role Phone Tuyet Aguilar MD Primary Care Pro vider Reason for Visit * Reason Comments Med Refill Encounter Details Date Type Department Care Team ([facility] st Contact Info) Description 10/06/2023 Refill [facility] [address] [place] [address] Tuyet Aguilar MD 230 [place] [address] Pain Social History Tobacco Use Types Packs/Day [...] Office Visit [facility] [address] [place] [address] Bj Hayes MD [address] [place] [address] 03/15/2025 1:00 PM EST Office Visit [facility] [address] [place] [address] Tuyet Aguilar MD [address] [place] [address] [phone] documented as of this encounter Visit Diagnoses Diagnosis Pain Generalized pain documented in this encounter Additional Health Concerns Assessment Noted Time PHQ-9 Depression Total Score: 0 06/29/19 24 2:13 PM EDT documented as of this encounter Care Teams Rehab Manager Relationship Specialty Start Date End Date Tuyet Aguilar MD [address] [place] [phone] PCP - General Internal Medicine 11/11/22 documented as of this encounter
--- OUTSIDE RECORDS SUMMARY | 2025-01-03 18:15 | XMS_ITS | Encounter Summary ---
Author Organization [employer] Address 75 [facility] 7t [place] [address] Care Team Providers Care Erection Shop Supervisor Name Role Phone Tuyet Aguilar MD Primary Care Pro vider Reason for Visit * Reason Comments Med Refill Encounter Details Date Type Department Care Team ([facility] st Contact Info) Description 11/09/2023 Refill [facility] 230 [place] [address] Tuyet Aguilar MD 230 [place] [address] Pain Social History Tobacco Use Types Packs/Day [...] Description 01/11/2025 9:30 AM EST Office Visit [facility] [address] [place] [address] Bj Hayes MD [address] [place] [address] 29[address] 03/15/2025 1:00 PM EST Office Visit [facility] [address] [place] [address] Tuyet Aguilar MD [address] [place] [address] [phone] documented as of this encounter Visit Diagnoses Diagnosis Pain Generalized pain documented in this encounter Additional Health Concerns Assessment Noted Time PHQ-9 Depression Total Score: 0 06/29/19 24 2:13 PM EDT documented as of this encounter Care Teams Erection Shop Supervisor Relationship Specialty Start Date End Date Tuyet Aguilar MD [address] [place] [address] PCP - General Internal Medicine 11/11/22 documented as of this encounter
--- OUTSIDE RECORDS SUMMARY | 2025-01-03 18:15 | XMS_ITS | Encounter Summary ---
Author Organization [employer] Address 75 [facility] 7t [place] [address] Care Team Providers Care Photograph Enlarger Name Role Phone Amanda Pearson JOVITA Primary Care Provider [phone] Ghulam Krueger Primary Care Provider Zulema Nj Primary Care Provider [phone] Tuyet Aguilar MD Primary Care Pro vider Encounter Details Date Type Department Care Team (Late st Contact Info) Description 04/19/2022 Orders Only [facility] [address] [place], [place] [phone] Cherelle Gaitan LPN Social History Tobacco Use [...] Description 01/11/2025 9:30 AM EST Office Visit [facility] [address] [place] [address] [phone] Bj Hayes MD [address] [place] [address] [phone] 03/15/2025 1:00 PM EST Office Visit [facility] 230 [place] [address] Tuyet Aguilar MD 230 [place] [address] documented as of this encounter Visit Diagnoses Not on filedocumented in this encounter Care Teams Photograph Enlarger Relationship Specialty Start Date End Date Amanda Pearson FNP [address] [place] [address] PCP - General Family Medicine 10/15/21 07/22/22 Ghulam Krueger AGNP [address] [place] [address] PCP - General Family Medicine 07/23/22 10/31/22 Zulema Khan ANP [address] [place] [address] PCP - General Family Medicine 11/01/22 11/10/22 Tuyet Aguilar MD [address] [place] [address] PCP - General Internal Medicine 11/11/22 documented as of this encounter
--- OUTSIDE RECORDS SUMMARY | 2025-01-03 18:15 | XMS_ITS | Encounter Summary ---
Author Organization [employer] Address 75 [facility] 7t [place] [address] Care Team Providers Care Haircutter Name Role Phone Tuyet Aguilar MD Primary Care Pro vider Reason for Visit * Reason Comments Med Refill Encounter Details Date Type Department Care Team ([facility] st Contact Info) Description 03/18/2023 Refill [facility] 230 [place] [address] Tuyet Aguilar MD 230 [place], [place] [phone] Pain Social History Tobacco Use Types Packs/Day Years Used Date Smoking Tobacco: Never Smokeless Tobacco: Never Alcohol Use Standard Drinks/Week Comments Never 0 (1 standard drink = 0.6 oz pur e alcohol) Depression Answer Date Recorded Patient Health Questionnaire-9 Score 0 08/11/2022 Housing Stability Answer Date Recorded What is your housing situation today? I have anisajsohua zuniga 12/07/[address] you [...] [facility] MED[facility]INE [address] [place] [address] Bj Hayes MD [address] [place] [address] 03/15/2025 1:00 PM EST Office Visit [address] [address] Tyuet Aguilar MD [address] [place] [address] documented as of this encounter Visit Diagnoses Diagnosis Pain Generalized pain documented in this encounter Additional Health Concerns Assessment Noted Time PHQ-9 Depression Total Score: 0 08/12/19 23 2:31 PM EDT documented as of this encounter Care Teams Haircutter Relationship Specialty Start Date End Date Tuyet Aguilar MD [address] [place] [phone] PCP - General Internal Medicine 11/11/22 documented as of this encounter
--- OUTSIDE RECORDS SUMMARY | 2025-01-03 18:15 | XMS_ITS | Encounter Summary ---
Author Organization [employer] Address 75 [facility] 7t [place] [address] Care Team Providers Care Sales Representative Adding Machines Name Role Phone Tuyet Aguilar MD Primary Care Pro vider Reason for Visit * Reason Comments Med Refill Encounter Details Date Type Department Care Team ([facility] st Contact Info) Description 01/02/2024 Refill [facility] 230 [place] [address] Tuyet Aguilar MD 230 [place] [address] Essential hypertension, benign Social History Tobacco Use [...] Description 01/11/2025 9:30 AM EST Office Visit [facility] [address] [place] [address] Bj Hayes MD [address] [place] [address] 03/15/2025 1:00 PM EST Office Visit [address] [address] Tuyet Aguilar MD [address] [place] [address] documented as of this encounter Visit Diagnoses Diagnosis Essential hypertension, benign documented in this encounter Additional Health Concerns Assessment Noted Time PHQ-9 Depression Total Score: 0 06/29/19 24 2:13 PM EDT documented as of this encounter Care Teams Sales Representative Adding Machines Relationship Specialty Start Date End Date Tuyet Aguilar MD [address] [place] [address] PCP - General Internal Medicine 11/11/22 documented as of this encounter
--- OUTSIDE RECORDS SUMMARY | 2025-01-03 18:15 | XMS_ITS | Encounter Summary ---
Author Organization [employer] Address 75 [facility] 7t [place] [address] Care Team Providers Care Vice President Tax Name Role Phone Tuyet Aguilar MD Primary Care Pro vider Reason for Visit * Reason Comments Med Refill Encounter Details Date Type Department Care Team (Late st Contact Info) Description 04/25/2024 Refill [facility] 230 [place] [address] Tuyet Sanchez MD 230 [place] [address] Acute pain of left knee Social History [...] Description 01/11/2025 9:30 AM EST Office Visit [facility] [address] [place] [address] Bj Hayes MD [address] [place] [address] 03/15/2025 1:00 PM EST Office Visit [facility] [address] [place] [address] Tuyet Aguilar MD [address] [place] [address] documented as of this encounter Visit Diagnoses Diagnosis Acute pain of left knee documented in this encounter Additional Health Concerns Assessment Noted Time PHQ-9 Depression Total Score: 0 04/13/19 25 10:40 AM EST documented as of this encounter Care Teams Vice President Tax Relationship Specialty Start Date End Date Tuyet Aguilar MD [address] [place] [phone] PCP - General Internal Medicine 11/11/22 documented as of this encounter
--- OUTSIDE RECORDS SUMMARY | 2025-01-03 18:15 | XMS_ITS | Encounter Summary ---
Author Organization [employer] Address 75 [facility] 7t [place] [address] Care Team Providers Care Veneer Splicer Name Role Phone Tuyet Aguilar MD Primary Care Pro vider Reason for Visit * Reason Comments Med Refill Encounter Details Date Type Department Care Team ([facility] st Contact Info) Description 06/21/2023 Refill [facility] 230 [place] [address] Tuyet Aguilar MD 230 [place] [address] Pain Social History Tobacco Use Types Packs/Day [...] [facility] [address] [place] [address] Bj Hayes MD [address] [place] [address] 03/15/2025 1:00 PM EST Office Visit [facility] [address] [place] [address] Tuyet Aguilar MD [address] [place] [address] documented as of this encounter Visit Diagnoses Diagnosis Pain Generalized pain documented in this encounter Additional Health Concerns Assessment Noted Time PHQ-9 Depression Total Score: 0 08/12/19 2:31 PM EDT documented as of this encounter Care Teams Veneer Splicer Relationship Specialty Start Date End Date Tuyet Aguilar MD [address] [place] [address] PCP - General Internal Medicine 11/11/22 documented as of this encounter
--- OUTSIDE RECORDS SUMMARY | 2025-01-03 18:15 | XMS_ITS | Encounter Summary ---
Author Organization [employer] Address 75 [facility] 7t [place] [address] Care Team Providers Care Hamper Maker Machine Name Role Phone Tuyet Aguilar MD Primary Care Pro vider Reason for Visit * Reason Comments Med Refill Encounter Details Date Type Department Care Team ([facility] st Contact Info) Description 03/21/2023 Refill [facility] MEDICINE 230 [place] [address] Tuyet Aguilar MD 230 [place], [place] [phone] Pain Social History Tobacco Use Types Packs/Day [...] Description 01/11/2025 9:30 AM EST Office Visit [facility] MEDICINE [address] [place] [address] Bj Hayes MD [address] [place] [address] 03/15/2025 1:00 PM EST Office Visit [address] [address] Tuyet Aguilar MD [address] [place] [address] documented as of this encounter Visit Diagnoses Diagnosis Pain Generalized pain documented in this encounter Additional Health Concerns Assessment Noted Time PHQ-9 Depression Total Score: 0 08/12/19 23 2:31 PM EDT documented as of this encounter Care Teams Hamper Maker Machine Relationship Specialty Start Date End Date Tuyet Aguilar MD [address] [place] [phone] PCP - General Internal Medicine 11/11/22 documented as of this encounter
--- OUTSIDE RECORDS SUMMARY | 2025-01-03 18:15 | XMS_ITS | Encounter Summary ---
Author Organization [employer] Address [address] [place] [address] 7t [place] [address] Care Team Providers Care Mixing And Molding Machine Operator Name Role Phone Amanda Pearson JOVITA Primary Care Provider [phone] Ghulam Krueger Primary Care Provider Zulema Nj Primary Care Provider [phone] Tuyet Aguilar MD Primary Care Pro vider Encounter Details Date Type Department Care Team (Late st Contact Info) Description 04/02/[address] [facility] PEDS 505 [place], [place] [phone] Cherelle Gaitan LPN Social History Tobacco Use [...] Description 01/11/2025 9:30 AM EST Office Visit [address] [phone] Bj Hayes MD [address] [place] [address] [phone] 03/15/2025 1:00 PM EST Office Visit [facility] MEDICINE [address] [place] [address] [phone] Tuyet Aguilar MD [address] [place] [address] [phone] documented as of this encounter Visit Diagnoses Not on filedocumented in this encounter Care Teams Mixing And Molding Machine Operator Relationship Specialty Start Date End Date Amanda Pearson FNP [address] [place] [phone] PCP - General Family Medicine 10/15/21 07/22/22 Ghulam Krueger AGNP [address] [place] [address] PCP - General Family Medicine 07/23/22 10/31/22 Zulema Khan ANP [address] [place] [address] PCP - General Family Medicine 11/01/22 11/10/22 Tuyet Aguilar MD [address] [place] [address] PCP - General Internal Medicine 11/11/22 documented as of this encounter
--- OUTSIDE RECORDS SUMMARY | 2025-01-03 18:15 | XMS_ITS | Encounter Summary ---
Author Organization [employer] Address 75 [facility] 7t [place] [address] Care Team Providers Care Umbrella Cutter Name Role Phone Tuyet Aguilar MD Primary Care Pro vider Reason for Visit * Reason Comments Med Refill Encounter Details Date Type Department Care Team ([facility] st Contact Info) Description 01/29/2024 Refill [facility] MED[facility]INE 230 [place] [address] Tuyet Aguilar MD 230 [place] [address] Social History Tobacco Use Types Packs/Day Years [...] 01/11/2025 9:30 AM EST Office Visit [facility] MED[facility]INE [address] [place] [address] Bj Hayes MD [address] [place] [address] 03/15/2025 1:00 PM EST Office Visit [facility] MED[facility] [address] [place] [address] Tuyet Aguilar MD [address] [place] [address] documented as of this encounter Visit Diagnoses Not on filedocumented in this encounter Additional Health Concerns Assessment Noted Time PHQ-9 Depression Total Score: 0 06/29/19 24 2:13 PM EDT documented as of this encounter Care Teams Umbrella Cutter Relationship Specialty Start Date End Date Tuyet Aguilar MD [address] [place] [address] PCP - General Internal Medicine 11/11/22 documented as of this encounter
--- OUTSIDE RECORDS SUMMARY | 2025-01-03 18:15 | XMS_ITS | Encounter Summary ---
Author Organization [employer] Address 75 [facility] 7t [place] [address] Care Team Providers Care Microchip Specialist Name Role Phone Tuyet Aguilar MD Primary Care Pro vider Encounter Details Date Type Department Care Team ([facility] st Contact Info) Description 11/30/2024 Refill [facility] MEDICINE 230 [place] [address] Tuyet Aguilar MD 230 [place] [address] Routine health maintenance Social History Tobacco Use [...] 01/11/2025 9:30 AM EST Office Visit [address] [address] Bj Hayes MD [address] [place] [address] 03/15/2025 1:00 PM EST Office Visit [address] [address] Tuyet Aguilar MD [address] [place] [address] documented as of this encounter Goals Goal [...] documented as of this encounter Care Teams Microchip Specialist Relationship Specialty Start Date End Date Tuyet Aguilar MD [address] [place] [phone] PCP - General Internal Medicine 11/11/22 documented as of this encounter
== END 2025-01-02 15:00 | disposition home or self-care (01) ==
LOC: HO.HOSX 14:59
PROVIDERS: Visit Provider Physician Assistant
DX: M17.12 Unilateral primary osteoarthritis, left knee (principal); M25.561 Pain in right knee
CPT/HCPCS: 73565; 99212